=== PATIENT | female | born 1945 | race African-American/Black ===

== ENCOUNTER 2017-08-10 12:35 | Emergency (ER) | payer MEDICARE ==
--- NOTE | 2017-08-10 14:35 | ED ---
Skin Complaint - HPI Summary HPI Summary: 72 female presents to ED with complaints of wounds on lower extremities that she has been dealing with for a while and has been seeing the wound clinic for. Just was seen on Sunday. States she feels they are looking better however they are painful and "leaking a lot". Has been changing the dressings at home. Lives at home by herself. Is able to walk and bear weight. Does have bilateral leg edema that is chronic. No fever/chills. No other complaints. Sees wound clinic again sunday08/14/17. Has been taking her medication and applying her antibiotic "clindamycin cream" as directed. Also has been dressing them but is here today because they are leaking "too much and she has to change the dressings frequently". - History of Current Complaint Chief Complaint: EDExtremityLower Time Seen by Provider: 08/10/17 12:43 Stated Complaint: RT FOOT PAIN Hx Obtained From: Patient Onset/Duration: Started Weeks Ago, Still Present Skin Exposure Onset/Duration: Weeks Ago Timing: Constant Onset Severity: Mild Current Severity: Mild Pain Intensity: 5 Pain Scale Used: 0-10 Numeric Skin Location: Leg - b/l, Foot - b/l Character: Swelling, Redness, Painful Aggravating Symptom(s): Nothing Alleviating Symptom(s): Nothing Associated Signs & Symptoms: Rash - wounds/ulcers - Allergy/Home Medications Allergies/Adverse Reactions: Allergies Allergy/AdvReac Type Severity Reaction Status Date / Time hydrocodone Allergy Unknown Unknown Verified 08/10/17 12:55 Reaction Details PMH/Surg Hx/FS Hx/Imm Hx Endocrine/Hematology History: Denies: Hx Diabetes Cardiovascular History: Reports: Hx Congestive Heart Failure, Hx Hypertension, Other Cardiovascular Problems/Disorders - chf Respiratory History: Reports: Hx Asthma Musculoskeletal History: Reports: Hx Osteoporosis, Other Musculoskeletal History - osteoporosis - Cancer History Hx Chemotherapy: No Hx Radiation Therapy: No - Surgical History Surgery Procedure, Year, and Place: hyster skin graft left leg - Immunization History Immunizations Up to Date: Yes Infectious Disease History: No Infectious Disease History: Reports: Hx of Known/Suspected MRSA - possible? patient is unsure Denies: Traveled Outside the [place] in Last 30 Days - Family History Family History: No FHx of breast CA - Social History Alcohol Use: Rare Substance Use Type: Reports: None Smoking Status (MU): Never Smoked Tobacco Review of Systems Constitutional: Negative Cardiovascular: Negative Respiratory: Negative Positive: Other - wounds bilateral legs, chronic All Other Systems Reviewed And Are Negative: Yes Physical Exam Triage Information Reviewed: Yes Vital Signs On Initial Exam: Initial Vitals Temp Pulse Resp BP Pulse Ox 96.9 F 91 16 165/66 95 08/10/17 12:36 08/10/17 12:36 08/10/17 12:36 08/10/17 12:36 08/10/17 12:36 BP noted, patient has to take her BP meds, improved at d/c Vital Signs Reviewed: Yes Appearance: Positive: Well-Appearing, No Pain Distress, Well-Nourished Skin: Positive: Warm, Skin Color Reflects Adequate Perfusion, Dry, Other - bilateral lower leg and foot wounds, chronic open. no necrosis, drainage is present. no significant erythema suggesting active infection. Eyes: Positive: Conjunctiva Clear Respiratory/Lung Sounds: Positive: Clear to Auscultation, Breath Sounds Present. Negative: Rales, Rhonchi, Wheezes Cardiovascular: Positive: Normal, RRR, Pulses are Symmetrical in both Upper and Lower Extremities - diminshed b/l +1 due to edema, however warm and cap refill < 2 sec, Leg Edema Left - 3+, Leg Edema Right - 3+ pitting. Negative: Murmur, Rub Musculoskeletal: Positive: Normal, Strength/ROM Intact, Pain @ - with movement and walking due to wounds, Edema Left - 3+, Edema Right - 3+ Neurological: Positive: Normal, Sensory/Motor Intact, Alert, Oriented to Person Place, Time Procedures - Laceration/Wound Repair 1-5 Sterile Dressing Applied?: Yes - to wounds on lower extremities, xeroform, telfa , kerlex, coban Diagnostics - Vital Signs Vital Signs Temp Pulse Resp BP Pulse Ox 08/10/17 12:36 96.9 F 91 16 165/66 95 - Laboratory Result Diagrams: 08/10/17 14:27 08/10/17 14:27 Lab Statement: Any lab studies that have been ordered have been reviewed, and results considered in the medical decision making process. Course/Dx - Course Course Of Treatment: labs obtained, wound dressings removed irrigated and ointment applied, new dressings applied. no concern for other workup at this time. is already following up at wound clinic weekly. wound culture sent and pending. normal vitals. already on pain medication prescribed at home along with CHF medication. no further concerns or work up appears necessary at this time. spoke with Dr Ruiz about case who agrees. Follow up woudn clinic. appears to be suffering from excessive drainage due to chronic bl edema and after most recent debridement. social work was consulted due to patient livng along and for help changing dressing and radha medication at home. - Differential Diagnoses - Skin Complaint Differential Diagnoses: Other - ulcer, wounds lower extremities, chronic bilateral edema - Diagnoses Provider Diagnoses: Wound of lower extremity, Venous stasis ulcer Discharge - Discharge Plan Condition: Stable Disposition: HOME Meds/Orders/Equipment: Home Care: Skilled Needs Location: None Selected Patient Education Materials: Chronic Wound Care (ED), Chronic Wounds (ED) Referrals: [facility] [Outside] Marii Swain MD [Primary Care Provider] - Additional Instructions: Please continue to change dressing and apply medication previously prescribed to you. Elevate legs to help with edema and refrain from walking to help with pain. Take prescribed pain medication to help with pain and discomfort. Keep clean and dry. Take daily medication as prescribed as this is very important to refrain from worsening wounds/edema. Follow up with wound clinic on sunday, call sooner if you feel its necessary. any fever, chills, blackened skin or worsening symptoms please seek medical attention promptly.
[2017-08-10 14:39] LABS: ABS Basophils 0 10^3/ul (0-0.2); ABS Eosinophils 0.1 10^3/ul (0-0.6); ABS Lymphocytes 0.5 10^3/ul (1.0-4.8); ABS Monocytes 0.3 10^3/ul (0-0.8); ABS Neutrophils 3.6 10^3/ul (1.5-7.7); ABS Nucleated RBC 0 10^3/ul; Eosinophil % 1.8 % (0-6); Hematocrit 37 % (35-47); Hemoglobin 11.8 g/dl (12.0-16.0); Mean Corpuscular HGB Conc 32 g/dl (31-36); Mean Corpuscular Hemoglobin 28 pg (27-31); Mean Corpuscular Volume 87 fL (80-97); Mean Platelet Volume 8 um3 (7.4-10.4); Nucleated Red Blood Cells % 0; Platelet Count 200 10^3/ul (150-450); Red Blood Count 4.22 10^6/ul (4.0-5.4); Red Cell Distribution Width 15 % (10.5-15); White Blood Count 4.5 10^3/ul (3.5-10.8)
[2017-08-10 14:53] LABS: EGFR Non-African American 67.2 (>60)
[2017-08-10 15:52] VITALS: BP 124/58
--- NOTE | 2017-08-13 14:16 | PN ---
Progress Note - Progress Note Date of Service: 08/10/17 Note: Called patient and 9 AM. Patient returns call at 2:15 PM She states her wound care clinic Dr. Puckett is aware she has MRSA positive This was confirmed while in the ED 3 days ago She was not placed on Bactrim as she has been on 3 courses of Bactrim, most recently stopped 2 days ago She has a follow-up with Dr. Puckett this I have encouraged her to also see our infectious disease physician, Dr. Damian She agrees to this, and will give him a call today I think this is important as she continues to have MRSA positive in her lower extremities and may need to be on a longer course of an antibiotic possibly requiring a PICC line.
== END 2017-08-10 15:51 | disposition home or self-care (01) ==
LOC: ED 12:35
DX: I83.008 Varicose veins of unspecified lower extremity with ulcer other part of lower leg (principal); L97.909 Non-pressure chronic ulcer of unspecified part of unspecified lower leg with unspecified severity; I50.9 Heart failure, unspecified; I10 Essential (primary) hypertension; J45.909 Unspecified asthma, uncomplicated; Z88.5 Allergy status to narcotic agent; M81.0 Age-related osteoporosis without current pathological fracture; A49.02 Methicillin resistant Staphylococcus aureus infection, unspecified site
CPT/HCPCS: 36415; 80053; 83605; 85025; 87070; 87077; 87186; 87205; 87640; 87641; 99282

== ENCOUNTER 2018-08-12 11:28 | Inpatient (IN) | payer MEDICARE ==
[2018-08-12] MEDS ORDERED: Piperacillin/Tazobac ADVAN(*) 3.375 GM in NS 0.9% 100 ML* 100 ML IVPB ONE (12:25)
[2018-08-12] MEDS ORDERED: NS 0.9% 1000 ML** 1,000 ML IV ONE (12:26)
[2018-08-12 13:25] LABS: Albumin 3.8 g/dL (3.2-5.2); Potassium 3.7 mmol/L (3.5-5.0); Total Bilirubin 0.4 mg/dL (0.2-1.0)
[2018-08-12 13:31] LABS: Albumin/Globulin Ratio 1.2 (1-3); BUN/Creatinine Ratio 29.7 (8-20); C Reactive Protein 12.46 mg/L (<8.01); EGFR African American 92.6 (>60); EGFR Non-African American 76.5 (>60); Globulin 3.3 g/dL (2-4); Total Protein 7.1 g/dL (6.4-8.9)
[2018-08-12 13:34] LABS: ABS Basophils 0 10^3/ul (0-0.2); ABS Eosinophils 0.1 10^3/ul (0-0.6); ABS Lymphocytes 0.6 10^3/ul (1.0-4.8); ABS Monocytes 0.4 10^3/ul (0-0.8); ABS Nucleated RBC 0 10^3/ul; Eosinophil % 2.6 %; Hematocrit 35 % (35-47); Hemoglobin 11.7 g/dl (12.0-16.0); Lymphocyte % 19.5 %; Mean Corpuscular HGB Conc 33 g/dl (31-36); Mean Corpuscular Hemoglobin 29 pg (27-31); Mean Corpuscular Volume 88 fL (80-97); Mean Platelet Volume 7.6 fL (7.4-10.4); Nucleated Red Blood Cells % 0.1; Platelet Count 203 10^3/ul (150-450); Red Blood Count 3.99 10^6/ul (4.00-5.40); Red Cell Distribution Width 14 % (10.5-15); White Blood Count 3.1 10^3/ul (3.5-10.8)
--- NOTE | 2018-08-12 16:30 | HP ---
CC: Dr. Swain * HOSPITAL MEDICINE HISTORY AND PHYSICAL: DATE OF ADMISSION: 08/12/18 PRIMARY CARE PHYSICIAN: Dr. Swain. ATTENDING PHYSICIAN: Dr. Jackson Collado * (dictation provided by Adelita Arreguin NP). CHIEF COMPLAINT: Nonhealing foot wound and concern for safety at home. HISTORY OF PRESENT ILLNESS: Ms. Mulligan is a 73-year-old female with a past medical history of peripheral arterial disease, chronic nonhealing lower extremity wounds, and hypertension. Ms. Mulligan is reportedly following with the Wound Care Clinic at least since 2016 with concern for nonhealing bilateral lower extremity wounds. She has a history of peripheral arterial disease. She does not have a history of diabetes. The patient was last seen there earlier this year. She recently had services of [facility], but she felt that she was able to manage her wounds on her own and therefore discontinued that service. The patient is followed by Dr. Swain and by care coordinators from [facility] ([facility]) who have recently been more and more concerned about the patient as she seems to not be following up with appointments and seems to be confused at home. The patient was checked on today and there was concern that she had a nonhealing wound and about her ability to care for herself at home and therefore she was transitioned to the hospital for further evaluation. In the hospital, on brief exam, Ms. Mulligan appears to be alert. She is oriented x3. She is communicating appropriately, although I cannot verify all the details that she is providing me with, specifically around the fact that her daughter is coming to live with her as of Sunday. She does report that she lives alone and she does not herself have any concerns about her safety. She has a foot wound to the top of her right foot that is dry. There is no erythema or drainage. The patient has labs, which show a C-reactive protein of 12.46 only. Her white blood cell count is 3.1, which is consistent with previous intermittent leukocytopenia. PAST MEDICAL HISTORY: 1. Hypertension. 2. Lower extremity edema. 3. Lower extremity wounds. MEDICATIONS: 1. Acetaminophen 500 mg p.o. b.i.d. 2. Cholecalciferol 125 mcg p.o. daily. 3. [place]-3 fatty acids 1000 mg p.o. daily. 4. Carvedilol 12.5 mg p.o. b.i.d. 5. Fluticasone/salmeterol 500/50 one puff inhaled b.i.d. 6. Furosemide 40 mg p.o. daily. 7. Metolazone 2.5 mg p.o. Sunday, Sunday, and Sunday. 8. Oxycodone with acetaminophen 5/325 one tab p.o. q.4 hours p.r.n. 9. Potassium chloride 20 mEq p.o. t.i.d. ALLERGIES: HYDROCODONE. FAMILY HISTORY: The patient reports mother related to cancer and dad's cause of is unknown. SOCIAL HISTORY: No report of alcohol, tobacco, or drug use. The patient lives alone. She states her sister, Khadra, will be the healthcare proxy. REVIEW OF SYSTEMS: A 14-point review of systems was completed with Ms. Mulligan and all those not mentioned above were negative. PHYSICAL EXAMINATION GENERAL: Ms. Mulligan is sitting up in the bed. She is in no acute distress. VITAL SIGNS: Temperature 97.6, pulse rate 80, respiratory rate 16, O2 saturation 97% on room air, blood pressure 111/70. LUNGS: Clear to auscultation bilaterally with no accessory muscle use and good aeration. HEART: S1, S2. No murmur, rub, or gallop and regular. ABDOMEN: Soft, nontender with bowel sounds positive x4. EXTREMITIES: No cyanosis, with mild 2+ edema. NEUROLOGIC: She is alert. She is oriented x3. She moves all extremities equally. There is no facial asymmetry or focal weakness. Extraocular movements are intact. SKIN: The patient has a chronic-appearing ulceration to the top of her right foot involving the second, third, and fourth toes. There is no erythema. There is no drainage. DIAGNOSTIC STUDIES/LAB DATA: WBC 3.1, hemoglobin 11.7, hematocrit 35. Sodium 130, potassium 3.7, chloride 99, serum bicarbonate 23, BUN 22, creatinine 0.74, glucose 89. CRP 12.46. Lactic acid 1.4. The patient did have a lower extremity CT, which is read as follows: "Soft tissue plane edema without identification of a loculated abscess collection within the limits of noncontrast CT. No CT evidence for osteomyelitis. If there is persistent clinical and excess suspicion for osteomyelitis, consider MRI or in the setting if contraindication for MRI, 3-phase bone scan for further assessment. Advanced arthropathy as described." ASSESSMENT AND PLAN: Ms. Mulligan is a 73-year-old female with a past medical history of peripheral arterial disease and chronic lower extremity wounds, who presents today to the hospital with concern for a nonhealing lower extremity wound and concerns about safety at home by her healthcare or medical and her primary care physician. Our plans are for observation in the hospital for the following : 1. Nonhealing foot wound. At this time, it does not appear to be acutely infected. There is no erythema. There is no drainage. I am not planning to provide antibiotics, but I have consulted with the Wound Care Clinic who can give further assessment as well. Again, a CT scan showed no evidence of osteomyelitis. Her CRP is essentially normal. Her WBC is showing a very slight leukocytopenia. She is afebrile. She denies fever at home as well. 2. Lower extremity edema. Continue normal metolazone and furosemide. 3. Hypertension. Continue carvedilol. 4. DVT prophylaxis with heparin subcu. 5. Code status is full code. TIME SPENT: Approximately 60 minutes were spent on the admission of this patient, more than half the time spent with the patient at the bedside reviewing the events leading up to this hospitalization, performing the physical examination, and reviewing my plan of care. ADELITA ARREGUIN NP [id number]/DEBBIE #: [id number] DANYELLE
[2018-08-12] MEDS: FLUTICASONE SALMETEROL INH SCH (19:24)
[2018-08-12] MEDS: Potassium Chlor TAB* 20 MEQ TAB.ER PO SCH (21:27)
[2018-08-12] MEDS: Metolazone TAB* 5 MG PO SCH (21:28)
[2018-08-12] MEDS: Carvedilol TAB* 6.25 MG PO SCH (21:28)
[2018-08-12] MEDS: Heparin VIAL(*) 5000 UNITS/ML VIAL (FIVE THOUSAND) SUBCUT SCH (21:29)
[2018-08-12 22:34] LABS: Erythrocyte Sed Rate 31 mm/Hr (0-30)
[2018-08-12] MEDS ORDERED: Lidocaine 4% TOPICAL* 50 ML TOP.SOLN TOPICAL ONE (23:00)
--- NOTE | 2018-08-13 00:04 | PN ---
Progress Note - Progress Note Date of Service: 08/13/18 Note: Paged wound cx: MRSA - sensitive to doxycycline in the past - will start this.
[2018-08-13] MEDS ORDERED: DOXYcycline CAP(*) 100 MG PO SCH (01:00)
[2018-08-13] MEDS: oxyCODONE/Acetamin 5/325 MG* TAB PO PRN (01:32)
[2018-08-13] MEDS: Heparin VIAL(*) 5000 UNITS/ML VIAL (FIVE THOUSAND) SUBCUT SCH ×3 (05:48→21:24)
--- NOTE | 2018-08-13 06:30 | ED ---
Skin Complaint - HPI Summary HPI Summary: Patient 73-year-old female with history of chronic nonhealing leg wounds, PAD, PVD presenting to the ED by ambulance. Patient is followed by Dr. haro. Dr. haro was able to contact the ED earlier in the afternoon to discuss patient's inability to care for herself at home. Dr. haro states she has been more concerned about the patient's baseline confusion, lack of follow-up to appointments and her worsening wound infections to her bilateral lower extremities to which she does not care for at home and does not follow up to the wound care clinic anymore. She has a visiting nurse services however she has been refusing their care. She denies any fevers, sweats, chills. She denies any recent illness. She states she has been changing her bandages every 2 days. - History of Current Complaint Chief Complaint: EDExtremityLower Time Seen by Provider: 08/12/18 11:34 Stated Complaint: RT FOOT INF Hx Obtained From: Patient Onset/Duration: Still Present Skin Exposure Onset/Duration: Worse Since: - several weeks - no follow up with wound clinic Timing: Constant Onset Severity: Moderate Current Severity: Moderate Pain Intensity: 8 Pain Scale Used: 0-10 Numeric Skin Location: Foot Character: Swelling, Redness Aggravating Symptom(s): Nothing Alleviating Symptom(s): Nothing Associated Signs & Symptoms: Negative - Additional Pertinent History Oxygen Devices Used Prior to Hospitalization: None - Allergy/Home Medications Allergies/Adverse Reactions: Allergies Allergy/AdvReac Type Severity Reaction Status Date / Time hydrocodone Allergy Unknown Unknown Verified 08/10/17 12:55 Reaction Details Home Medications: Home Medications Acetaminophen [Acetaminophen Extra Strength] 500 mg PO BID 08/12/18 [History Confirmed 08/12/18] Carvedilol TAB* [Coreg TAB*] 12.5 mg PO BID 08/12/18 [History Confirmed 08/12/18 ] Cholecalciferol (Vitamin D3) [Vitamin D3] 125 mcg PO DAILY 08/12/18 [History Confirmed 08/12/18] Fluticasone-Salmeterol 500-50* [Advair Diskus 500-50*] 1 puff INH BID 08/12/18 [ History Confirmed 08/12/18] Furosemide TAB* [Lasix TAB*] 40 mg PO DAILY 08/12/18 [History Confirmed 08/12/18 ] Metolazone TAB* [Zaroxolyn TAB*] 2.5 mg PO MOWEFR 08/12/18 [History Confirmed ] [place]-3 Fatty Acids (Nf) [Fish Oil (NF)] 1,000 mg PO DAILY 08/12/18 [History Confirmed 08/12/18] Potassium Chlor TAB* [Klor Con ER TAB*] 20 meq PO TID 08/12/18 [History Confirmed 08/12/18] oxyCODONE/Acetamin 5/325 MG* [Percocet 5/325 TAB*] 1 tab PO Q4H PRN 08/12/18 [ History Confirmed 08/12/18] PMH/Surg Hx/FS Hx/Imm Hx Previously Healthy: Yes Endocrine/Hematology History: Denies: Hx Diabetes Cardiovascular History: Reports: Hx Congestive Heart Failure, Hx Hypertension, Other Cardiovascular Problems/Disorders - chf Respiratory History: Reports: Hx Asthma Musculoskeletal History: Reports: Hx Osteoporosis, Other Musculoskeletal History - osteoporosis Sensory History: Denies: Hx Contacts or Glasses, Hx Hearing Aid Opthamlomology History: Denies: Hx Contacts or Glasses - Cancer History Hx Chemotherapy: No Hx Radiation Therapy: No - Surgical History Surgery Procedure, Year, and Place: hyster skin graft left leg Infectious Disease History: No Infectious Disease History: Reports: Hx of Known/Suspected MRSA - possible? patient is unsure Denies: Traveled Outside the [place] in Last 30 Days - Family History Family History: No FHx of breast CA - Social History Occupation: Unemployed Lives: Alone Alcohol Use: Rare Hx Substance Use: No Substance Use Type: Reports: None Hx Tobacco Use: Yes Smoking Status (MU): Former Smoker Review of Systems Constitutional: Negative Negative: Fever, Chills, Fatigue, Skin Diaphoresis Negative: Palpitations, Chest Pain Genitourinary: Negative Positive: no symptoms reported, see HPI Negative: Arthralgia Positive: Other - chronic lower extremity wounds All Other Systems Reviewed And Are Negative: Yes Physical Exam Triage Information Reviewed: Yes Vital Signs On Initial Exam: Initial Vitals Temp Pulse Resp BP Pulse Ox 97.6 F 73 16 119/62 93 08/12/18 11:35 08/12/18 11:35 08/12/18 11:35 08/12/18 11:35 08/12/18 11:35 Vital Signs Reviewed: Yes Appearance: Positive: Well-Appearing, Ill-Appearing Skin: Positive: Other - chronic lower extremity leg edema and wounds - worse to the R 2nd and 3rd toes Neck: Positive: No Lymphadenopathy Respiratory/Lung Sounds: Positive: Clear to Auscultation, Breath Sounds Present Cardiovascular: Positive: RRR, Pulses are Symmetrical in both Upper and Lower Extremities Musculoskeletal: Positive: Edema Left, Edema Right Neurological: Positive: Speech Normal, Other - patient is pleasantly confused Psychiatric: Positive: Affect/Mood Appropriate AVPU Assessment: Alert Diagnostics - Vital Signs Vital Signs Temp Pulse Resp BP Pulse Ox 08/12/18 15:01 80 98 08/12/18 14:11 80 111/70 97 08/12/18 14:01 79 97 08/12/18 13:41 73 129/68 96 08/12/18 13:38 80 96 08/12/18 13:11 128/66 08/12/18 12:42 115/81 08/12/18 12:11 69 108/56 98 08/12/18 12:10 70 97 08/12/18 11:35 97.6 F 73 16 119/62 93 - Laboratory Lab Results: Lab Results 08/12/18 08/12/18 08/12/18 Range/Units 12:49 13:23 13:23 WBC 3.1 L (3.5-10.8) 10^3/ul RBC 3.99 L (4.00-5.40) 10^6/ul Hgb 11.7 L (12.0-16.0) g/dl Hct 35 (35-47) % MCV 88 (80-97) fL MCH 29 (27-31) pg MCHC 33 (31-36) g/dl RDW 14 (10.5-15) % Plt Count 203 (150-450) 10^3/ul MPV 7.6 (7.4-10.4) fL Neut % (Auto) 63.3 % Lymph % (Auto) 19.5 % Brooks % (Auto) 13.4 % Eos % (Auto) 2.6 % Baso % (Auto) 1.2 % Absolute Neuts (auto) 2.0 (1.5-7.7) 10^3/ul Absolute Lymphs (auto) 0.6 L (1.0-4.8) 10^3/ul Absolute Monos (auto) 0.4 (0-0.8) 10^3/ul Absolute Eos (auto) 0.1 (0-0.6) 10^3/ul Absolute Basos (auto) 0 (0-0.2) 10^3/ul Absolute Nucleated RBC 0 10^3/ul Nucleated RBC % 0.1 ESR 31 H (0-30) mm/Hr Sodium 130 L (135-145) mmol/L Potassium 3.7 (3.5-5.0) mmol/L Chloride 99 L (101-111) mmol/L Carbon Dioxide 23 (22-32) mmol/L Anion Gap 8 (2-11) mmol/L BUN 22 (6-24) mg/dL Creatinine 0.74 (0.51-0.95) mg/dL Est GFR ( Amer) 92.6 (>60) Est GFR (Non-Af Amer) 76.5 (>60) BUN/Creatinine Ratio 29.7 H (8-20) Glucose 89 (70-100) mg/dL Lactic Acid 1.4 (0.5-2.0) mmol/L Calcium 10.0 (8.6-10.3) mg/dL Total Bilirubin 0.40 (0.2-1.0) mg/dL AST 14 (13-39) U/L ALT 7 (7-52) U/L Alkaline Phosphatase 84 (34-104) U/L C-Reactive Protein 12.46 H (<8.01) mg/L Total Protein 7.1 (6.4-8.9) g/dL Albumin 3.8 (3.2-5.2) g/dL Globulin 3.3 (2-4) g/dL Albumin/Globulin Ratio 1.2 (1-3) Result Diagrams: 08/12/18 13:23 08/12/18 12:49 Lab Statement: Any lab studies that have been ordered have been reviewed, and results considered in the medical decision making process. Course/Dx - Course Course Of Treatment: On arrival into the ED, patient is pleasantly confused at baseline. She states she has been changing her bandages every 2 days. And asked why she does not continue follow-up care at the wound clinic, she states she is able to manage at home. She also states she would not like to return to Dr. Dobbs, who was previously treating her chronic wounds. Patient does report she lives alone and denies any concerns. Dr. haro called into ED and stated she was concerned over her welfare and safety for returning home due to her worsening confusion and lack of close follow-up with her worsening lower extremity edema and chronic wounds. On physical examination, there is a chronic -appearing ulcerations to the bilateral lower extremities and feet, worse to the right second and third toe which is weeping with erythema and serous fluid. Discussed case with Dr. Collado, hospitalist who agrees to admit for further evaluation of her chronic wounds as well as her mental capacity for her return home. She is started on Zosyn in the ED to cover for pseudomonas, wound cultures will be obtained and sent and will tailor abx therapy accordingly. - Diagnoses Provider Diagnoses: Chronic wound of extremity Discharge - Sign-Out/Discharge Documenting (check all that apply): Patient Departure - Discharge Plan Condition: Fair Disposition: ADMITTED TO [facility] - Billing Disposition and Condition Condition: FAIR Disposition: Admitted to [facility]
--- NOTE | 2018-08-13 07:39 | PN ---
Subjective Date of Service: 08/13/18 Interval History: Chronic pain R hip, doesn't use analgesics, can walk short distances with a walker. No other c/o. Objective Active Medications: Acetaminophen (Tylenol Tab*) 650 mg PO Q6H PRN PRN Reason: PAIN Carvedilol (Coreg Tab*) 12.5 mg PO BID [facility] Last Admin: 08/12/18 21:28 Dose: 12.5 mg Furosemide (Lasix Tab*) 20 mg PO DAILY [facility] Heparin Sodium (Porcine) (Heparin Vial(*)) 5,000 units SUBCUT Q8HR [facility] Last Admin: 08/13/18 05:48 Dose: 5,000 units Metolazone (Zaroxolyn Tab*) 2.5 mg PO MOWEFR [facility] Last Admin: 08/12/18 21:28 Dose: 2.5 mg Oxycodone/Acetaminophen (Percocet 5/325 Tab*) 1 tab PO Q4H PRN PRN Reason: PAIN Last Admin: 08/13/18 01:32 Dose: 1 tab Potassium Chloride (Klor Con Er Tab*) 20 meq PO TID [facility] Last Admin: 08/12/18 21:27 Dose: 20 meq Fluticasone/Salmeterol (Advair Diskus 500-50*) 1 puff INH BID [facility] Last Admin: 08/12/18 19:24 Dose: Not Given Vital Signs - 8 hr 08/13/18 08/13/18 08/13/18 01:32 02:55 03:01 Temperature 97.6 F Pulse Rate 72 Respiratory 20 18 Rate Blood Pressure 94/43 (mmHg) O2 Sat by Pulse 96 Oximetry 08/13/18 05:35 Temperature Pulse Rate Respiratory 18 Rate Blood Pressure (mmHg) O2 Sat by Pulse Oximetry Oxygen Devices in Use Now: None Appearance: Alert, partly up in bed. In good spirits, looks comfortable. Extremities: No Edema, No Clubbing, Cyanosis Skin: No Nodules or Sclerosis, - - R foot chronically red per patient. Macerated areas dorsum of several toes R foot. Neurological: Alert and Oriented x 3, NL Sensation Result Diagrams: 08/12/18 13:23 08/12/18 12:49 Additional Lab and Data: Lab Results 08/12/18 08/12/18 08/12/18 Range/Units 12:49 13:23 13:23 WBC 3.1 L (3.5-10.8) 10^3/ul RBC 3.99 L (4.00-5.40) 10^6/ul Hgb 11.7 L (12.0-16.0) g/dl Hct 35 (35-47) % MCV 88 (80-97) fL MCH 29 (27-31) pg MCHC 33 (31-36) g/dl RDW 14 (10.5-15) % Plt Count 203 (150-450) 10^3/ul MPV 7.6 (7.4-10.4) fL Neut % (Auto) 63.3 % Lymph % (Auto) 19.5 % [place] % (Auto) 13.4 % Eos % (Auto) 2.6 % Baso % (Auto) 1.2 % Absolute Neuts (auto) 2.0 (1.5-7.7) 10^3/ul Absolute Lymphs (auto) 0.6 L (1.0-4.8) 10^3/ul Absolute Monos (auto) 0.4 (0-0.8) 10^3/ul Absolute Eos (auto) 0.1 (0-0.6) 10^3/ul Absolute Basos (auto) 0 (0-0.2) 10^3/ul Absolute Nucleated RBC 0 10^3/ul Nucleated RBC % 0.1 ESR 31 H (0-30) mm/Hr Sodium 130 L (135-145) mmol/L Potassium 3.7 (3.5-5.0) mmol/L Chloride 99 L (101-111) mmol/L Carbon Dioxide 23 (22-32) mmol/L Anion Gap 8 (2-11) mmol/L BUN 22 (6-24) mg/dL Creatinine 0.74 (0.51-0.95) mg/dL Est GFR ( Amer) 92.6 (>60) Est GFR (Non-Af Amer) 76.5 (>60) BUN/Creatinine Ratio 29.7 H (8-20) Glucose 89 (70-100) mg/dL Lactic Acid 1.4 (0.5-2.0) mmol/L Calcium 10.0 (8.6-10.3) mg/dL Total Bilirubin 0.40 (0.2-1.0) mg/dL AST 14 (13-39) U/L ALT 7 (7-52) U/L Alkaline Phosphatase 84 (34-104) U/L C-Reactive Protein 12.46 H (<8.01) mg/L Total Protein 7.1 (6.4-8.9) g/dL Albumin 3.8 (3.2-5.2) g/dL Globulin 3.3 (2-4) g/dL Albumin/Globulin Ratio 1.2 (1-3) Microbiology and Other Data: Microbiology 08/12/18 20:25 Skin and Soft Tissue MRSA/MSSA (PCR - Final Foot Right Mrsa Positive S.aureus Positive Gram Stain - Preliminary 08/12/18 20:25 Nasal Screen MRSA (PCR) - Final Nasal Mrsa Detected Assess/Plan/Problems-Billing Assessment: - Patient Problems (1) Foot ulcer, right Current Visit: Yes Status: Acute Code(s): L97.519 - NON-PRS CHRONIC ULCER OTH PRT RIGHT FOOT W UNSP SEVERITY SNOMED Code(s): 46146478 Comment: Surface S&S pos for MRSA consistently for almost 2 years, no indication for an antibiotic. Wound consult pending. (2) HTN (hypertension) Current Visit: Yes Status: Acute Code(s): I10 - ESSENTIAL (PRIMARY) HYPERTENSION SNOMED Code(s): 85948384 Comment: Continue carvedilol. Reduce furosemide to 20 mg daily due to high BUN/creat ratio and lack of edema. (3) Cognitive change Current Visit: Yes Status: Acute Code(s): R41.89 - OTH SYMPTOMS AND SIGNS W COGNITIVE FUNCTIONS AND AWARENESS SNOMED Code(s): 446711210 Comment: Psychiatric eval shows that the patient lacks capacity to make medical decisions such as refusing to be placed.
[2018-08-13] MEDS ORDERED: Furosemide TAB* 40 MG PO SCH (09:00)
[2018-08-13] MEDS: FLUTICASONE SALMETEROL INH SCH ×2 (09:22→20:35)
[2018-08-13] MEDS: Carvedilol TAB* 6.25 MG PO SCH ×2 (10:58→21:24)
[2018-08-13] MEDS: Furosemide TAB* 40 MG PO SCH (11:00)
[2018-08-13] MEDS: Potassium Chlor TAB* 20 MEQ TAB.ER PO SCH ×3 (11:01→21:24)
--- NOTE | 2018-08-13 13:34 | CONSULT ---
Consult Consult: Psychiatry consulted to evaluate for capacity for medical decision making. S: Psychiatry is asked to see this pleasant, elderly, domiciled black female with a history of peripheral arterial disease and associated chronic nonhealing wounds to assess whether she has capacity to refuse SNF placement. According to EMR, patient has been a client of Wound Care clinic since 2016 with poor progress. Recently, she discontinued VNS services due to motivation to care for her self. However, during that time she has not followed through with medical appointments nor has she tended to her own wound care. She is consistent in her report to many providers that her daughter is coming this week from [place] to live with and care for her. According to attending physician, there is no such person. According to Shonna Castillo RN medicaid specialist: "Pt well known to the Wound Center; has been followed on and off for the past 5 years for venous stasis ulcers to lower legs and most recently ulceration to dorsum of R foot. Pt with increasing difficulty remembering appointments, paying bills and caring for herself. Frequent phone calls to PCP, APS and social work with these concerns, however she neglected to follow through with any of the suggestions or paperwork required. Unable to order supplies since she had an unpaid balance. She eventually terminated her VNS stating that she no longer needed their assistance. Discharged from Wound Center on 06/19/18." Upon presentation, patient is lying in bed with HOB elevated and she is watching the television. She is pleasant and cooperative and answers questions fully. She reports living alone and being able to care for her wounds , cook for herself and ambulate to local grocery store. She states she moved to [place] from [place] in 2009 and has been planning to return "but it hasn't happened yet." She states her daughter is coming this sunday from . She does not have understanding in regards to reason for hospitalization. She denies need for assisted living or prison. O: aging black female, pleasant, cooperative, euthymic with bright affect; she denies depressive sx, SI or HI. Cognitively intact, She is cooperative with MMSE and scores 26/30. She missed points for year, recent recall and serial 7s. She was able to spell "WORLD" backwards. Her insight and judgment are impaired in regards to her ability to care for herself and perform necessary wound care. A/P: Capacity: the patient clearly lacks capacity to make informed medical decisions. Psychiatry feels SNF placement is warranted. I have reviewed the above with attending physician, Dr Causey and my supervising psychiatrist, Dr Lewis.
[2018-08-14] MEDS: oxyCODONE/Acetamin 5/325 MG* TAB PO PRN (06:24)
[2018-08-14] MEDS: Heparin VIAL(*) 5000 UNITS/ML VIAL (FIVE THOUSAND) SUBCUT SCH ×3 (06:25→20:01)
[2018-08-14] MEDS: FLUTICASONE SALMETEROL INH SCH ×2 (07:12→19:51)
[2018-08-14] MEDS: Furosemide TAB* 40 MG PO SCH (09:30)
[2018-08-14] MEDS: Carvedilol TAB* 6.25 MG PO SCH ×2 (09:30→20:01)
[2018-08-14] MEDS: Potassium Chlor TAB* 20 MEQ TAB.ER PO SCH ×3 (09:31→20:01)
--- NOTE | 2018-08-14 14:40 | CONSULT ---
Subjective Date of Service: 08/14/18 Interval History: Ms. Mulligan is a 73 yo female with PMH significant for HTN, PAD, and chronic non healing wounds of the LEs who presented to the emergency room with complaints of a non healing wound and concern for her ability to care for herself. Ms. Mulligan was previously following with the wound clinic but was discharged from there in June 2018. She states that she has not been using a dressing on the right foot and feels like it is improving on its own. Patient seen and examined at bedside. Family History: Unchanged from Admission Social History: Unchanged from Admission Past Medical History: Unchanged from Admission Review of Systems - Measurements Intake and Output: Intake and Output Last 24 Hours 08/12/18 08/13/18 08/14/18 08/15/18 06:59 06:59 06:59 06:59 Intake Total 1100 330 240 Balance 1100 330 240 Weight 204 lb Intake: IV Fluids 1100 Oral 0 330 240 Other: Estimated Void Medium Large # Bowel Movements 1 Estimated Stool Amount Medium # Voids 2 1 - Review of Systems Constitutional Symptoms: Negative: Fever, Other - Chills Dermatology: Positive: Other - Non healing wound of the right foot Objective Active Medications: Acetaminophen (Tylenol Tab*) 650 mg PO Q6H PRN Reason: PAIN Carvedilol (Coreg Tab*) 12.5 mg PO BID [facility] Furosemide (Lasix Tab*) 20 mg PO DAILY [facility] Heparin Sodium (Porcine) (Heparin Vial(*)) 5,000 units SUBCUT Q8HR [facility] Metolazone (Zaroxolyn Tab*) 2.5 mg PO MOWEFR [facility] Oxycodone/Acetaminophen (Percocet 5/325 Tab*) 1 tab PO Q4H PRN Reason: PAIN Potassium Chloride (Klor Con Er Tab*) 20 meq PO TID [facility] Fluticasone/Salmeterol (Advair Diskus 500-50*) 1 puff INH BID [facility] Vital Signs - 8 hr 08/14/18 08/14/18 08/14/18 09:23 09:25 09:32 Temperature 97.3 F Pulse Rate 61 Respiratory 18 18 Rate Blood Pressure 103/52 (mmHg) O2 Sat by Pulse 99 Oximetry 08/14/18 08/14/18 11:19 12:24 Temperature 97.4 F Pulse Rate 62 Respiratory 16 18 Rate Blood Pressure 81/44 (mmHg) O2 Sat by Pulse 98 Oximetry Oxygen Devices in Use Now: None Appearance: NAD, sitting up in a chair Ears/Nose/Mouth/Throat: Mucous Membranes Moist Skin: - - See skin note below Neurological: Alert and Oriented x 3 Result Diagrams: 08/17/18 07:59 08/17/18 07:59 Microbiology and Other Data: Microbiology 08/12/18 20:25 Skin and Soft Tissue MRSA/MSSA (PCR - Final Foot Right Mrsa Positive S.aureus Positive Gram Stain - Preliminary 08/12/18 20:25 Nasal Screen MRSA (PCR) - Final Nasal Mrsa Detected Skin Deviation Note - Skin Deviation Findings Right foot - Dorsal foot with an ulcer. The surrounding skin appears to be macerated (the area was previously dry, but the foot was soaked today prior to examination). The open area below the 2nd and 3rd toes measures 3 cm x 3 cm x 0.1 cm. There is also dry flaky skin to bilateral LEs. There is some crusting to the lateral 1st toe, dorsal 2nd toe and 3rd dorsal toe. Assessment/Plan: Ms. Mulligan is a 73 yo female with PMH significant for HTN, PAD, and chronic non healing wounds who previously followed with the wound clinic. She presented to the hospital with concern for non healing right LE wound and inability to care for herself at home. 1. Chronic right foot wound, venous stasis ulcer. Has a history of venous stasis ulcers to her LEs. Mr. Mulligan was previously following with the wound clinic for her non healing wound, but was discharged from the [facility] in June 2018 (she has been following with the wound clinic off and on for ~ 5 years for venous stasis ulcers). October 2017 ABIs - Right: The posterior tibial ankle brachial index is 0.82. The dorsalis pedis ankle brachial index is 0.89. Left: The posterior tibial ankle brachial index is 0.94. The dorsalis pedis ankle brachial index is 0.92. The digital brachial index is 0.67. Right LE CT on admission showed soft tissue edema, no abscess, and no evidence of osteomyelitis. Pre-albumin in 04/2018 was 23. She has never had a HgA1C but historically glucoses have been 70-120's. She is afebrile, no leukocytosis, and no signs of infection at this time, no need for antibiotics. No drainage noted ( Per NSG staff there has been some drainage), no odor. Could consider rechecking pre-albumin to evaluate nutritional status. Could consider an MRI to further eval for osteomyelitis, but currently low suspicion for osteomyelitis. No dressing required at this time. Can use lotion on surrounding skin and bilateral LEs to help with the dry flaky skin. 2. Peripheral Arterial Disease. 3. Diet. Heart Healthy diet. 4. Code Status. Full Code. 5. Disposition. Disposition per primary medicine team. TIME SPENT: Time for this wound consultation was 25 minutes, and 15 minutes was spent with the patient discussing past medical history; assessing, measuring, and photographing the wound. Wound Problem/Plan Is Patient a Wound Clinic Patient: No - Previously, Discharged in 06/2018 Attending: Miryam Dobbs
[2018-08-14] MEDS: Metolazone TAB* 5 MG PO SCH ×2 (15:33→15:36)
--- NOTE | 2018-08-14 15:47 | PN ---
Subjective Date of Service: 08/14/18 Interval History: No c/o, seems content. Family History: Unchanged from Admission Social History: Unchanged from Admission Past Medical History: Unchanged from Admission Objective Active Medications: Acetaminophen (Tylenol Tab*) 650 mg PO Q6H PRN PRN Reason: PAIN Carvedilol (Coreg Tab*) 6.25 mg PO BID [facility] Furosemide (Lasix Tab*) 20 mg PO DAILY [facility] Last Admin: 08/14/18 09:30 Dose: 20 mg Heparin Sodium (Porcine) (Heparin Vial(*)) 5,000 units SUBCUT Q8HR [facility] Last Admin: 08/14/18 15:32 Dose: 5,000 units Metolazone (Zaroxolyn Tab*) 2.5 mg PO MoWeFr@1600 [facility] Last Admin: 08/14/18 15:36 Dose: Not Given Oxycodone/Acetaminophen (Percocet 5/325 Tab*) 1 tab PO Q4H PRN PRN Reason: PAIN Last Admin: 08/14/18 06:24 Dose: 1 tab Potassium Chloride (Klor Con Er Tab*) 20 meq PO TID [facility] Last Admin: 08/14/18 15:32 Dose: 20 meq Fluticasone/Salmeterol (Advair Diskus 500-50*) 1 puff INH BID [facility] Last Admin: 08/14/18 07:12 Dose: Not Given Vital Signs - 8 hr 08/14/18 08/14/18 08/14/18 09:23 09:25 09:32 Temperature 97.3 F Pulse Rate 61 Respiratory 18 18 Rate Blood Pressure 103/52 (mmHg) O2 Sat by Pulse 99 Oximetry 08/14/18 08/14/18 08/14/18 11:19 12:24 15:14 Temperature 97.4 F 97.7 F Pulse Rate 62 58 Respiratory 16 18 20 Rate Blood Pressure 81/44 105/57 (mmHg) O2 Sat by Pulse 98 Oximetry Oxygen Devices in Use Now: None Appearance: Alert, in a chair. In good spirits. Looks comfortable. Eyes: No Scleral Icterus Extremities: No Edema, No Clubbing, Cyanosis Skin: No Nodules or Sclerosis, - - Open areas R toes look a little instructional design manager today, are now exposd to air. Neurological: NL Sensation - Confabulates. Poor memory. No tremor. Pleasant and cooperative. No tremor. Result Diagrams: 08/12/18 13:23 08/12/18 12:49 Additional Lab and Data: Lab Results 08/12/18 08/12/18 08/12/18 Range/Units 12:49 13:23 13:23 WBC 3.1 L (3.5-10.8) 10^3/ul RBC 3.99 L (4.00-5.40) 10^6/ul Hgb 11.7 L (12.0-16.0) g/dl Hct 35 (35-47) % MCV 88 (80-97) fL MCH 29 (27-31) pg MCHC 33 (31-36) g/dl RDW 14 (10.5-15) % Plt Count 203 (150-450) 10^3/ul MPV 7.6 (7.4-10.4) fL Neut % (Auto) 63.3 % Lymph % (Auto) 19.5 % [place] % (Auto) 13.4 % Eos % (Auto) 2.6 % Baso % (Auto) 1.2 % Absolute Neuts (auto) 2.0 (1.5-7.7) 10^3/ul Absolute Lymphs (auto) 0.6 L (1.0-4.8) 10^3/ul Absolute Monos (auto) 0.4 (0-0.8) 10^3/ul Absolute Eos (auto) 0.1 (0-0.6) 10^3/ul Absolute Basos (auto) 0 (0-0.2) 10^3/ul Absolute Nucleated RBC 0 10^3/ul Nucleated RBC % 0.1 ESR 31 H (0-30) mm/Hr Sodium 130 L (135-145) mmol/L Potassium 3.7 (3.5-5.0) mmol/L Chloride 99 L (101-111) mmol/L Carbon Dioxide 23 (22-32) mmol/L Anion Gap 8 (2-11) mmol/L BUN 22 (6-24) mg/dL Creatinine 0.74 (0.51-0.95) mg/dL Est GFR ( Amer) 92.6 (>60) Est GFR (Non-Af Amer) 76.5 (>60) BUN/Creatinine Ratio 29.7 H (8-20) Glucose 89 (70-100) mg/dL Lactic Acid 1.4 (0.5-2.0) mmol/L Calcium 10.0 (8.6-10.3) mg/dL Total Bilirubin 0.40 (0.2-1.0) mg/dL AST 14 (13-39) U/L ALT 7 (7-52) U/L Alkaline Phosphatase 84 (34-104) U/L C-Reactive Protein 12.46 H (<8.01) mg/L Total Protein 7.1 (6.4-8.9) g/dL Albumin 3.8 (3.2-5.2) g/dL Globulin 3.3 (2-4) g/dL Albumin/Globulin Ratio 1.2 (1-3) Microbiology and Other Data: Microbiology 08/12/18 20:25 Skin and Soft Tissue MRSA/MSSA (PCR - Final Foot Right Mrsa Positive S.aureus Positive Gram Stain - Preliminary 08/12/18 20:25 Nasal Screen MRSA (PCR) - Final Nasal Mrsa Detected Assess/Plan/Problems-Billing Assessment: - Patient Problems (1) Foot ulcer, right Current Visit: Yes Status: Acute Code(s): L97.519 - NON-PRS CHRONIC ULCER OTH PRT RIGHT FOOT W UNSP SEVERITY SNOMED Code(s): 30452521 Comment: Surface S&S pos for MRSA consistently for almost 2 years, no indication for an antibiotic. Wound consult pending. (2) HTN (hypertension) Current Visit: Yes Status: Acute Code(s): I10 - ESSENTIAL (PRIMARY) HYPERTENSION SNOMED Code(s): 17480369 Comment: Reduce carvedilol to 6.25 mg bid start PM 3/6. Continue furosemide 20 mg daily. (3) Cognitive change Current Visit: Yes Status: Acute Code(s): R41.89 - OTH SYMPTOMS AND SIGNS W COGNITIVE FUNCTIONS AND AWARENESS SNOMED Code(s): 347872040 Comment: Psychiatric eval shows that the patient lacks capacity to make medical decisions such as refusing to be placed. (4) Hyponatremia Current Visit: Yes Status: Acute Code(s): E87.1 - HYPO-OSMOLALITY AND HYPONATREMIA SNOMED Code(s): 63068999 Comment: Repeat BMP 08/15. Her oral intake is low.
[2018-08-15] MEDS: Heparin VIAL(*) 5000 UNITS/ML VIAL (FIVE THOUSAND) SUBCUT SCH ×2 (05:27→18:19)
[2018-08-15 07:18] LABS: BUN/Creatinine Ratio 33.8 (8-20); EGFR African American 107.5 (>60); EGFR Non-African American 88.9 (>60); Potassium 4.1 mmol/L (3.5-5.0)
[2018-08-15] MEDS: FLUTICASONE SALMETEROL INH SCH ×2 (08:09→21:36)
[2018-08-15] MEDS: Carvedilol TAB* 6.25 MG PO SCH ×2 (10:05→21:48)
[2018-08-15] MEDS: Acetaminophen TAB* 325 MG PO PRN (10:05)
[2018-08-15] MEDS: Potassium Chlor TAB* 20 MEQ TAB.ER PO SCH ×3 (10:07→21:48)
[2018-08-15] MEDS: Furosemide TAB* 40 MG PO SCH (10:08)
--- NOTE | 2018-08-15 11:22 | PN ---
Subjective Date of Service: 08/15/18 Interval History: Pt seen and examined. Meds and labs reviewed. CC: N/A ROS: Denied GAMBLE/dizziness, F/C, N/V, CP, SOB, increased cough, sputum production , abd pain, diarrhea, constipation, dysuria, myalgias, arthralgias, throat pain , and new skin lesions. The rest of the 14 point ROS are unremarkable. PHYSICAL EXAM: GEN APPEARANCE: Awake, not in acute distress HEENT: NC/AT, PERRLA, moist oral mucosa, (-) throat erythema NECK: Soft, supple, (-) cervical LAD, (-)JVD HEART: S1S2 WNL, RRR, No MRG CHEST: CTA, BL, GAE, No W/R/R ABD: Soft, ND/NT, NABS 4x Q EXT: No C/C/R. dorsal foot wound; appears clean but weepy SKIN: Warm to touch PSYCH: No active psychosis, hallucinations, depression, SI/HI Family History: Unchanged from Admission Social History: Unchanged from Admission Past Medical History: Unchanged from Admission Objective Active Medications: Acetaminophen (Tylenol Tab*) 650 mg PO Q6H PRN PRN Reason: PAIN Last Admin: 08/15/18 10:05 Dose: 650 mg Carvedilol (Coreg Tab*) 6.25 mg PO BID [facility] Last Admin: 08/15/18 10:05 Dose: 6.25 mg Furosemide (Lasix Tab*) 20 mg PO DAILY [facility] Last Admin: 08/15/18 10:08 Dose: 20 mg Heparin Sodium (Porcine) (Heparin Vial(*)) 5,000 units SUBCUT Q12H [facility] Metolazone (Zaroxolyn Tab*) 2.5 mg PO MoWeFr@1600 [facility] Last Admin: 08/14/18 15:36 Dose: Not Given Oxycodone/Acetaminophen (Percocet 5/325 Tab*) 1 tab PO Q4H PRN PRN Reason: PAIN Last Admin: 08/14/18 06:24 Dose: 1 tab Potassium Chloride (Klor Con Er Tab*) 20 meq PO TID [facility] Last Admin: 08/15/18 10:07 Dose: 20 meq Fluticasone/Salmeterol (Advair Diskus 500-50*) 1 puff INH BID [facility] Last Admin: 08/15/18 08:09 Dose: Not Given Vital Signs - 8 hr 08/15/18 08/15/18 08/15/18 04:04 07:48 08:00 Temperature 97.6 F 97.6 F Pulse Rate 77 70 Respiratory 18 20 20 Rate Blood Pressure 101/56 107/58 (mmHg) O2 Sat by Pulse 100 100 Oximetry Oxygen Devices in Use Now: None Result Diagrams: 08/12/18 13:23 08/15/18 06:36 Additional Lab and Data: Lab Results 08/12/18 08/12/18 08/12/18 Range/Units 12:49 13:23 13:23 WBC 3.1 L (3.5-10.8) 10^3/ul RBC 3.99 L (4.00-5.40) 10^6/ul Hgb 11.7 L (12.0-16.0) g/dl Hct 35 (35-47) % MCV 88 (80-97) fL MCH 29 (27-31) pg MCHC 33 (31-36) g/dl RDW 14 (10.5-15) % Plt Count 203 (150-450) 10^3/ul MPV 7.6 (7.4-10.4) fL Neut % (Auto) 63.3 % Lymph % (Auto) 19.5 % [place] % (Auto) 13.4 % Eos % (Auto) 2.6 % Baso % (Auto) 1.2 % Absolute Neuts (auto) 2.0 (1.5-7.7) 10^3/ul Absolute Lymphs (auto) 0.6 L (1.0-4.8) 10^3/ul Absolute Monos (auto) 0.4 (0-0.8) 10^3/ul Absolute Eos (auto) 0.1 (0-0.6) 10^3/ul Absolute Basos (auto) 0 (0-0.2) 10^3/ul Absolute Nucleated RBC 0 10^3/ul Nucleated RBC % 0.1 ESR 31 H (0-30) mm/Hr Sodium 130 L (135-145) mmol/L Potassium 3.7 (3.5-5.0) mmol/L Chloride 99 L (101-111) mmol/L Carbon Dioxide 23 (22-32) mmol/L Anion Gap 8 (2-11) mmol/L BUN 22 (6-24) mg/dL Creatinine 0.74 (0.51-0.95) mg/dL Est GFR ( Amer) 92.6 (>60) Est GFR (Non-Af Amer) 76.5 (>60) BUN/Creatinine Ratio 29.7 H (8-20) Glucose 89 (70-100) mg/dL Lactic Acid 1.4 (0.5-2.0) mmol/L Calcium 10.0 (8.6-10.3) mg/dL Total Bilirubin 0.40 (0.2-1.0) mg/dL AST 14 (13-39) U/L ALT 7 (7-52) U/L Alkaline Phosphatase 84 (34-104) U/L C-Reactive Protein 12.46 H (<8.01) mg/L Total Protein 7.1 (6.4-8.9) g/dL Albumin 3.8 (3.2-5.2) g/dL Globulin 3.3 (2-4) g/dL Albumin/Globulin Ratio 1.2 (1-3) Microbiology and Other Data: Microbiology 08/12/18 20:25 Skin and Soft Tissue MRSA/MSSA (PCR - Final Foot Right Mrsa Positive S.aureus Positive Gram Stain - Preliminary 08/12/18 20:25 Nasal Screen MRSA (PCR) - Final Nasal Mrsa Detected Assess/Plan/Problems-Billing Assessment: - Patient Problems (1) Foot ulcer, right Current Visit: Yes Status: Acute Code(s): L97.519 - NON-PRS CHRONIC ULCER OTH PRT RIGHT FOOT W UNSP SEVERITY SNOMED Code(s): 49736540 Comment: -Surface S&S pos for MRSA consistently for almost 2 years, no indication for an antibiotic. -Will await subsequent F/U assessment by wound team -Repeat CBC and CRP in AM -CT scan does not show evidence for osteomyelitis and thought to be non-healing due to forgetfulness and pts failure to F/U with appointments -Consider MRI if clinical course changes/worsens; currently no leukocytosis nor fever (2) HTN (hypertension) Current Visit: Yes Status: Acute Code(s): I10 - ESSENTIAL (PRIMARY) HYPERTENSION SNOMED Code(s): 96854018 Comment: -Continue carvedilol to 6.25 mg bid start PM 3/6 and continue furosemide 20 mg daily. (3) Cognitive change Current Visit: Yes Status: Acute Code(s): R41.89 - OTH SYMPTOMS AND SIGNS W COGNITIVE FUNCTIONS AND AWARENESS SNOMED Code(s): 364239433 Comment: Psychiatric eval shows that the patient lacks capacity to make medical decisions such as refusing to be placed. (4) Hyponatremia Current Visit: Yes Status: Acute Code(s): E87.1 - HYPO-OSMOLALITY AND HYPONATREMIA SNOMED Code(s): 39471515 Comment: -Resolved (5) DVT prophylaxis Current Visit: Yes Status: Acute Code(s): BXC2461 - SNOMED Code(s): 601937131 Comment: -Changed Heparin to q12H due to advanced age Status and Disposition: -For PT eval -As above
[2018-08-16] MEDS: Heparin VIAL(*) 5000 UNITS/ML VIAL (FIVE THOUSAND) SUBCUT SCH ×2 (05:59→17:29)
[2018-08-16] MEDS: FLUTICASONE SALMETEROL INH SCH ×2 (07:07→19:03)
[2018-08-16 07:14] LABS: Albumin 3.7 g/dL (3.2-5.2); Albumin/Globulin Ratio 1.3 (1-3); CRP High Sensitivity 13.3 mg/L (<2.00); Calcium 10.1 mg/dL (8.6-10.3); EGFR African American 98.7 (>60); EGFR Non-African American 81.6 (>60); Globulin 2.9 g/dL (2-4); Magnesium 1.6 mg/dL (1.9-2.7); Phosphorus 3.2 mg/dL (2.5-5.0); Potassium 4.1 mmol/L (3.5-5.0); Total Bilirubin 0.4 mg/dL (0.2-1.0); Total Protein 6.6 g/dL (6.4-8.9)
[2018-08-16] MEDS: Carvedilol TAB* 6.25 MG PO SCH ×2 (08:11→21:24)
[2018-08-16] MEDS: Furosemide TAB* 40 MG PO SCH (08:11)
[2018-08-16] MEDS: Potassium Chlor TAB* 20 MEQ TAB.ER PO SCH ×3 (08:11→21:25)
[2018-08-16] MEDS ORDERED: Magnesium Sulf 4 GM/100 ML IV* 4,000 MG/100 ML BAG IVPB ONE (09:50)
--- NOTE | 2018-08-16 16:05 | PN ---
Subjective Date of Service: 08/16/18 Interval History: Pt seen and examined. Meds and labs reviewed. CC: N/A ROS: Denied GAMBLE/dizziness, F/C, N/V, CP, SOB, increased cough, sputum production , abd pain, diarrhea, constipation, dysuria, myalgias, arthralgias, throat pain , and new skin lesions. The rest of the 14 point ROS are unremarkable. PHYSICAL EXAM: ASSESSMENT AND PLAN: GEN APPEARANCE: Awake, not in acute distress HEENT: NC/AT, PERRLA, moist oral mucosa, (-) throat erythema NECK: Soft, supple, (-) cervical LAD, (-)JVD HEART: S1S2 WNL, RRR, No MRG CHEST: CTA, BL, GAE, No W/R/R ABD: Soft, ND/NT, NABS 4x Q EXT: No C/C/R. dorsal foot wound; appears clean but weepy SKIN: Warm to touch PSYCH: No active psychosis, hallucinations, depression, SI/HI Family History: Unchanged from Admission Social History: Unchanged from Admission Past Medical History: Unchanged from Admission Objective Active Medications: Acetaminophen (Tylenol Tab*) 650 mg PO Q6H PRN PRN Reason: PAIN Last Admin: 08/15/18 10:05 Dose: 650 mg Carvedilol (Coreg Tab*) 6.25 mg PO BID [facility] Last Admin: 08/16/18 08:11 Dose: 6.25 mg Furosemide (Lasix Tab*) 20 mg PO DAILY [facility] Last Admin: 08/16/18 08:11 Dose: 20 mg Heparin Sodium (Porcine) (Heparin Vial(*)) 5,000 units SUBCUT Q12H [facility] Last Admin: 08/16/18 05:59 Dose: 5,000 units Metolazone (Zaroxolyn Tab*) 2.5 mg PO MoWeFr@1600 [facility] Last Admin: 08/14/18 15:36 Dose: Not Given Oxycodone/Acetaminophen (Percocet 5/325 Tab*) 1 tab PO Q4H PRN PRN Reason: PAIN Last Admin: 08/14/18 06:24 Dose: 1 tab Potassium Chloride (Klor Con Er Tab*) 20 meq PO TID [facility] Last Admin: 08/16/18 13:36 Dose: 20 meq Fluticasone/Salmeterol (Advair Diskus 500-50*) 1 puff INH BID [facility] Last Admin: 08/16/18 07:07 Dose: Not Given Vital Signs - 8 hr 08/16/18 08/16/18 11:57 12:00 Temperature 98 F Pulse Rate 70 Respiratory 20 Rate Blood Pressure 119/66 (mmHg) O2 Sat by Pulse 100 Oximetry Oxygen Devices in Use Now: None Result Diagrams: 08/12/18 13:23 08/16/18 06:51 Additional Lab and Data: Lab Results 08/12/18 08/12/18 08/12/18 Range/Units 12:49 13:23 13:23 WBC 3.1 L (3.5-10.8) 10^3/ul RBC 3.99 L (4.00-5.40) 10^6/ul Hgb 11.7 L (12.0-16.0) g/dl Hct 35 (35-47) % MCV 88 (80-97) fL MCH 29 (27-31) pg MCHC 33 (31-36) g/dl RDW 14 (10.5-15) % Plt Count 203 (150-450) 10^3/ul MPV 7.6 (7.4-10.4) fL Neut % (Auto) 63.3 % Lymph % (Auto) 19.5 % [place] % (Auto) 13.4 % Eos % (Auto) 2.6 % Baso % (Auto) 1.2 % Absolute Neuts (auto) 2.0 (1.5-7.7) 10^3/ul Absolute Lymphs (auto) 0.6 L (1.0-4.8) 10^3/ul Absolute Monos (auto) 0.4 (0-0.8) 10^3/ul Absolute Eos (auto) 0.1 (0-0.6) 10^3/ul Absolute Basos (auto) 0 (0-0.2) 10^3/ul Absolute Nucleated RBC 0 10^3/ul Nucleated RBC % 0.1 ESR 31 H (0-30) mm/Hr Sodium 130 L (135-145) mmol/L Potassium 3.7 (3.5-5.0) mmol/L Chloride 99 L (101-111) mmol/L Carbon Dioxide 23 (22-32) mmol/L Anion Gap 8 (2-11) mmol/L BUN 22 (6-24) mg/dL Creatinine 0.74 (0.51-0.95) mg/dL Est GFR ( Amer) 92.6 (>60) Est GFR (Non-Af Amer) 76.5 (>60) BUN/Creatinine Ratio 29.7 H (8-20) Glucose 89 (70-100) mg/dL Lactic Acid 1.4 (0.5-2.0) mmol/L Calcium 10.0 (8.6-10.3) mg/dL Total Bilirubin 0.40 (0.2-1.0) mg/dL AST 14 (13-39) U/L ALT 7 (7-52) U/L Alkaline Phosphatase 84 (34-104) U/L C-Reactive Protein 12.46 H (<8.01) mg/L Total Protein 7.1 (6.4-8.9) g/dL Albumin 3.8 (3.2-5.2) g/dL Globulin 3.3 (2-4) g/dL Albumin/Globulin Ratio 1.2 (1-3) Microbiology and Other Data: Microbiology 08/12/18 20:25 Skin and Soft Tissue MRSA/MSSA (PCR - Final Foot Right Mrsa Positive S.aureus Positive Gram Stain - Preliminary 08/12/18 20:25 Nasal Screen MRSA (PCR) - Final Nasal Mrsa Detected Assess/Plan/Problems-Billing Assessment: - Patient Problems (1) Foot ulcer, right Current Visit: Yes Status: Acute Code(s): L97.519 - NON-PRS CHRONIC ULCER OTH PRT RIGHT FOOT W UNSP SEVERITY SNOMED Code(s): 79852653 Comment: -Surface S&S pos for MRSA consistently for almost 2 years, no indication for an antibiotic. -Will await subsequent F/U assessment by wound team -Blood Cx (-) x4 days -Repeat CRP mildly elevated today; Unclear why CBC ordered dropped? -Will obtain MRI to evaluate for osteomyelitis -CT scan does not show evidence for osteomyelitis and thought to be non-healing due to forgetfulness and pts failure to F/U with appointments -Follow WBC/CRP (2) HTN (hypertension) Current Visit: Yes Status: Acute Code(s): I10 - ESSENTIAL (PRIMARY) HYPERTENSION SNOMED Code(s): 54078572 Comment: -Continue carvedilol to 6.25 mg bid start PM 3/6 and continue furosemide 20 mg daily. (3) Cognitive change Current Visit: Yes Status: Acute Code(s): R41.89 - OTH SYMPTOMS AND SIGNS W COGNITIVE FUNCTIONS AND AWARENESS SNOMED Code(s): 501905267 Comment: Psychiatric eval shows that the patient lacks capacity to make medical decisions such as refusing to be placed. (4) Hyponatremia Current Visit: Yes Status: Acute Code(s): E87.1 - HYPO-OSMOLALITY AND HYPONATREMIA SNOMED Code(s): 48193586 Comment: -Resolved (5) DVT prophylaxis Current Visit: Yes Status: Acute Code(s): JAR4727 - SNOMED Code(s): 718453165 Comment: -Changed Heparin to q12H due to advanced age Status and Disposition: -For PT eval -Spoke w/ Daughter Daniel (#[phone]) who mentions that she will be moving to [place] and live with her mother. D/W Lucy of Care coordinating team to further tailor disposition plan
[2018-08-16] MEDS: Metolazone TAB* 5 MG PO SCH (17:29)
[2018-08-17] MEDS: Heparin VIAL(*) 5000 UNITS/ML VIAL (FIVE THOUSAND) SUBCUT SCH ×2 (06:03→17:22)
[2018-08-17 08:15] LABS: ABS Basophils 0 10^3/ul (0-0.2); ABS Eosinophils 0.1 10^3/ul (0-0.6); ABS Lymphocytes 0.6 10^3/ul (1.0-4.8); ABS Monocytes 0.3 10^3/ul (0-0.8); ABS Neutrophils 1.6 10^3/ul (1.5-7.7); ABS Nucleated RBC 0 10^3/ul; Eosinophil % 5.3 %; Hematocrit 40 % (35-47); Hemoglobin 12.9 g/dl (12.0-16.0); Lymphocyte % 22.3 %; Mean Corpuscular HGB Conc 33 g/dl (31-36); Mean Corpuscular Hemoglobin 29 pg (27-31); Mean Corpuscular Volume 88 fL (80-97); Nucleated Red Blood Cells % 0.2; Platelet Count 235 10^3/ul (150-450); Red Cell Distribution Width 14 % (10.5-15); White Blood Count 2.5 10^3/ul (3.5-10.8)
[2018-08-17] MEDS: FLUTICASONE SALMETEROL INH SCH ×2 (08:15→19:12)
[2018-08-17] MEDS: Furosemide TAB* 40 MG PO SCH (08:46)
[2018-08-17] MEDS: Potassium Chlor TAB* 20 MEQ TAB.ER PO SCH ×3 (08:46→21:05)
[2018-08-17] MEDS: Carvedilol TAB* 6.25 MG PO SCH ×2 (08:47→21:05)
[2018-08-17 09:09] LABS: BUN/Creatinine Ratio 26.4 (8-20); C Reactive Protein 10.04 mg/L (<8.01); Calcium 10.7 mg/dL (8.6-10.3); EGFR African American 95.5 (>60); Magnesium 2.2 mg/dL (1.9-2.7); Potassium 4.4 mmol/L (3.5-5.0)
--- NOTE | 2018-08-17 16:48 | PN ---
Subjective Date of Service: 08/17/18 Interval History: Patient is feeling well, decreased pain in foot. Patient denies F/C, N/V, abdominal pain, dysuria, dizziness, CP, SOB, claudication. Patient is anxious to leave the hospital but very pleasant. Family History: Unchanged from Admission Social History: Unchanged from Admission Past Medical History: Unchanged from Admission Objective Active Medications: Acetaminophen (Tylenol Tab*) 650 mg PO Q6H PRN PRN Reason: PAIN Last Admin: 08/15/18 10:05 Dose: 650 mg Carvedilol (Coreg Tab*) 6.25 mg PO BID [facility] Last Admin: 08/17/18 08:47 Dose: 6.25 mg Furosemide (Lasix Tab*) 20 mg PO DAILY [facility] Last Admin: 08/17/18 08:46 Dose: 20 mg Heparin Sodium (Porcine) (Heparin Vial(*)) 5,000 units SUBCUT Q12H [facility] Last Admin: 08/17/18 06:03 Dose: 5,000 units Metolazone (Zaroxolyn Tab*) 2.5 mg PO MoWeFr@1600 [facility] Last Admin: 08/16/18 17:29 Dose: 2.5 mg Oxycodone/Acetaminophen (Percocet 5/325 Tab*) 1 tab PO Q4H PRN PRN Reason: PAIN Last Admin: 08/14/18 06:24 Dose: 1 tab Potassium Chloride (Klor Con Er Tab*) 20 meq PO TID [facility] Last Admin: 08/17/18 13:43 Dose: 20 meq Fluticasone/Salmeterol (Advair Diskus 500-50*) 1 puff INH BID [facility] Last Admin: 08/17/18 08:15 Dose: Not Given Vital Signs - 8 hr 08/17/18 08/17/18 08/17/18 09:02 12:13 15:58 Temperature 97.6 F 96.9 F 97.6 F Pulse Rate 63 62 73 Respiratory 20 20 16 Rate Blood Pressure 109/59 109/60 113/54 (mmHg) O2 Sat by Pulse 99 100 98 Oximetry Oxygen Devices in Use Now: None Appearance: Patient is a 73yo female who appears stated age and is sitting in the bed in [facility]. Eyes: No Scleral Icterus, PERRLA Ears/Nose/Mouth/Throat: NL Teeth, Lips, Gums, Clear Oropharnyx, Mucous Membranes Moist Neck: NL Appearance and Movements; NL JVP, Trachea Midline Respiratory: Symmetrical Chest Expansion and Respiratory Effort, Clear to Auscultation Cardiovascular: NL Sounds; No Murmurs; No JVD, RRR, - - Trace Edema Abdominal: NL Sounds; No Tenderness; No Distention, No Hepatosplenomegaly Lymphatic: No Cervical Adenopathy Extremities: No Clubbing, Cyanosis Skin: No Nodules or Sclerosis, - - Non-Healing wound on dorsum of right foot. Neurological: Alert and Oriented x 3, NL Sensation, NL Gait - Unsteady gait. , NL Muscle Strength and Tone, - - CN II-XII intact Result Diagrams: 08/17/18 07:59 08/17/18 07:59 Additional Lab and Data: Lab Results Microbiology and Other Data: Microbiology 08/12/18 20:25 Skin and Soft Tissue MRSA/MSSA (PCR - Final Foot Right Mrsa Positive S.aureus Positive Gram Stain - Preliminary 08/12/18 20:25 Nasal Screen MRSA (PCR) - Final Nasal Mrsa Detected Assess/Plan/Problems-Billing Assessment: Patient is a 73yo female with a PMH for PAD, Chronic Venous Stasis Ulcer, and HTN who is admitted for non-healing venous stasis wound of the RLE without compelling evidence for infection who is awaiting placement in short term rehab due to inability to care for herself at home. - Patient Problems (1) Foot ulcer, right Current Visit: Yes Status: Acute Code(s): L97.519 - NON-PRS CHRONIC ULCER OTH PRT RIGHT FOOT W UNSP SEVERITY SNOMED Code(s): 27509384 Comment: -Surface S&S pos for MRSA consistently for almost 2 years, no indication for an antibiotic. - No Clinical signs of cellulitis - Wound care and elevated with gentle compression if tolerated. - Blood Cx negative - Repeat CRP stable - MRI shows no Osteo (2) HTN (hypertension) Current Visit: Yes Status: Acute Code(s): I10 - ESSENTIAL (PRIMARY) HYPERTENSION SNOMED Code(s): 99215500 Comment: -Continue carvedilol to 6.25 mg bid and continue furosemide 20 mg daily. (3) Cognitive change Current Visit: Yes Status: Acute Code(s): R41.89 - OTH SYMPTOMS AND SIGNS W COGNITIVE FUNCTIONS AND AWARENESS SNOMED Code(s): 958280909 Comment: - Psychiatric eval shows that the patient lacks capacity to make medical decisions such as refusing to be placed. - Rehab placement pending. (4) PAD (peripheral artery disease) Current Visit: Yes Status: Acute Code(s): I73.9 - PERIPHERAL VASCULAR DISEASE, UNSPECIFIED SNOMED Code(s): 421587272 Comment: - ABIs WNL, no claudication - No need for revascularization at this time. (5) DVT prophylaxis Current Visit: Yes Status: Acute Code(s): YQJ3002 - SNOMED Code(s): 748896217 Comment: -Heparin SubQ Q12H Status and Disposition: -For PT eval -Spoke w/ Daughter Daniel (#[phone]) who mentions that she will be moving to [place] and live with her mother. D/W Lucy of Care coordinating team to further tailor disposition plan
[2018-08-18] MEDS: Heparin VIAL(*) 5000 UNITS/ML VIAL (FIVE THOUSAND) SUBCUT SCH ×2 (06:16→17:30)
[2018-08-18] MEDS: FLUTICASONE SALMETEROL INH SCH ×2 (07:45→21:09)
[2018-08-18] MEDS: Potassium Chlor TAB* 20 MEQ TAB.ER PO SCH ×3 (08:24→21:44)
[2018-08-18] MEDS: Carvedilol TAB* 6.25 MG PO SCH ×2 (08:24→21:44)
[2018-08-18] MEDS: Furosemide TAB* 40 MG PO SCH (08:24)
--- NOTE | 2018-08-18 16:32 | PN ---
Subjective Date of Service: 08/18/18 Interval History: patient is anxious to return home, states that daughter is coming to stay with her. Denies chest pain or shortness of breath. denies abd pain n/v/d. denies fever or chills. Family History: Unchanged from Admission Social History: Unchanged from Admission Past Medical History: Unchanged from Admission Objective Active Medications: Acetaminophen (Tylenol Tab*) 650 mg PO Q6H PRN PRN Reason: PAIN Last Admin: 08/15/18 10:05 Dose: 650 mg Carvedilol (Coreg Tab*) 6.25 mg PO BID [facility] Last Admin: 08/18/18 08:24 Dose: 6.25 mg Furosemide (Lasix Tab*) 20 mg PO DAILY [facility] Last Admin: 08/18/18 08:24 Dose: 20 mg Heparin Sodium (Porcine) (Heparin Vial(*)) 5,000 units SUBCUT Q12H [facility] Last Admin: 08/18/18 06:16 Dose: 5,000 units Metolazone (Zaroxolyn Tab*) 2.5 mg PO MoWeFr@1600 [facility] Last Admin: 08/16/18 17:29 Dose: 2.5 mg Oxycodone/Acetaminophen (Percocet 5/325 Tab*) 1 tab PO Q4H PRN PRN Reason: PAIN Last Admin: 08/14/18 06:24 Dose: 1 tab Potassium Chloride (Klor Con Er Tab*) 20 meq PO TID [facility] Last Admin: 08/18/18 13:03 Dose: 20 meq Fluticasone/Salmeterol (Advair Diskus 500-50*) 1 puff INH BID [facility] Last Admin: 08/18/18 07:45 Dose: Not Given Oxygen Devices in Use Now: None Appearance: appears comfortable sittingon the edge of the bed, no acute distress Eyes: No Scleral Icterus Ears/Nose/Mouth/Throat: Clear Oropharnyx, Mucous Membranes Moist Neck: NL Appearance and Movements; NL JVP, Trachea Midline Respiratory: Symmetrical Chest Expansion and Respiratory Effort, Clear to Auscultation Cardiovascular: NL Sounds; No Murmurs; No JVD, No Edema Abdominal: NL Sounds; No Tenderness; No Distention, No Hepatosplenomegaly Extremities: No Edema, No Clubbing, Cyanosis Skin: - - right foot with slight redness, small amt dried drainage noted around 2,3,4 right toes Neurological: Alert and Oriented x 3 Nutrition: Taking PO's Result Diagrams: 08/17/18 07:59 08/17/18 07:59 Additional Lab and Data: Lab Results Microbiology and Other Data: Microbiology 08/12/18 20:25 Skin and Soft Tissue MRSA/MSSA (PCR - Final Foot Right Mrsa Positive S.aureus Positive Gram Stain - Preliminary 08/12/18 20:25 Nasal Screen MRSA (PCR) - Final Nasal Mrsa Detected Assess/Plan/Problems-Billing Assessment: Patient is a 73yo female with a PMH for PAD, Chronic Venous Stasis Ulcer, and HTN who is admitted for non-healing venous stasis wound of the RLE without compelling evidence for infection who is awaiting placement in short term rehab due to inability to care for herself at home. - Patient Problems (1) Foot ulcer, right Current Visit: Yes Status: Acute Code(s): L97.519 - NON-PRS CHRONIC ULCER OTH PRT RIGHT FOOT W UNSP SEVERITY SNOMED Code(s): 27685558 Comment: -Surface S&S pos for MRSA consistently for almost 2 years -she does have mild redness and swelling noted toher 2,3,4 toes - culture is positve for MRSA which is chronic - Wound care and elevated with gentle compression if tolerated. - Blood Cx negative - Repeat CRP stable - MRI shows no Osteo and mild cellulitis - will start doxycycline po (2) Cognitive change Current Visit: Yes Status: Acute Code(s): R41.89 - OTH SYMPTOMS AND SIGNS W COGNITIVE FUNCTIONS AND AWARENESS SNOMED Code(s): 599590270 Comment: - Psychiatric eval shows that the patient lacks capacity to make medical decisions such as refusing to be placed. - Rehab placement pending. (3) HTN (hypertension) Current Visit: Yes Status: Acute Code(s): I10 - ESSENTIAL (PRIMARY) HYPERTENSION SNOMED Code(s): 24573451 Comment: -Continue carvedilol to 6.25 mg bid and continue furosemide 20 mg daily. (4) Hyponatremia Current Visit: Yes Status: Acute Code(s): E87.1 - HYPO-OSMOLALITY AND HYPONATREMIA SNOMED Code(s): 70456742 Comment: -Resolved (5) PAD (peripheral artery disease) Current Visit: Yes Status: Acute Code(s): I73.9 - PERIPHERAL VASCULAR DISEASE, UNSPECIFIED SNOMED Code(s): 315671945 Comment: - ABIs WNL, no claudication - No need for revascularization at this time. (6) DVT prophylaxis Current Visit: Yes Status: Acute Code(s): KGB5533 - SNOMED Code(s): 910608152 Comment: -Heparin SubQ Q12H (7) Full code status Current Visit: Yes Status: Acute Code(s): Z78.9 - OTHER SPECIFIED HEALTH STATUS SNOMED Code(s): 182229367 Status and Disposition: -For PT eval -Spoke w/ Daughter Daniel (#[phone]) who mentions that she will be moving to [place] and live with her mother. D/W Lucy of Care coordinating team to further tailor disposition plan
[2018-08-18] MEDS: DOXYcycline CAP(*) 100 MG PO SCH (21:44)
[2018-08-19] MEDS: Heparin VIAL(*) 5000 UNITS/ML VIAL (FIVE THOUSAND) SUBCUT SCH ×2 (05:51→18:24)
[2018-08-19] MEDS: FLUTICASONE SALMETEROL INH SCH ×2 (08:08→20:27)
[2018-08-19] MEDS: Furosemide TAB* 40 MG PO SCH (08:22)
[2018-08-19] MEDS: Carvedilol TAB* 6.25 MG PO SCH ×2 (08:22→20:21)
[2018-08-19] MEDS: DOXYcycline CAP(*) 100 MG PO SCH ×2 (08:22→20:21)
[2018-08-19] MEDS: Potassium Chlor TAB* 20 MEQ TAB.ER PO SCH ×3 (08:22→20:21)
--- NOTE | 2018-08-19 14:51 | PN ---
Subjective Date of Service: 08/19/18 Interval History: Pt continues to be anxious to go home to help her daughter "clean up." She states that her foot is no longer painful, although it looks bad, she says. She denies CP, SOB, abd pain, n/v/d/c, pain in the calves. Family History: Unchanged from Admission Social History: Unchanged from Admission Past Medical History: Unchanged from Admission Objective Active Medications: Acetaminophen (Tylenol Tab*) 650 mg PO Q6H PRN Carvedilol (Coreg Tab*) 6.25 mg PO BID [facility] Doxycycline Hyclate (Vibramycin Cap(*)) 100 mg PO BID [facility] Furosemide (Lasix Tab*) 20 mg PO DAILY [facility] Heparin Sodium (Porcine) (Heparin Vial(*)) 5,000 units SUBCUT Q12H [facility] Metolazone (Zaroxolyn Tab*) 2.5 mg PO MoWeFr@1600 [facility] Oxycodone/Acetaminophen (Percocet 5/325 Tab*) 1 tab PO Q4H PRN Potassium Chloride (Klor Con Er Tab*) 20 meq PO TID [facility] Fluticasone/Salmeterol (Advair Diskus 500-50*) 1 puff INH BID [facility] Vital Signs: Temp Pulse Resp BP Pulse Ox 98.0 F 71 16 125/63 97 08/19/18 08:22 08/19/18 08:22 08/19/18 08:22 08/19/18 08:22 08/19/18 08:22 Oxygen Devices in Use Now: None Appearance: Pt is sitting up in chair watching television. She appears well and in no acute distress. Eyes: No Scleral Icterus Ears/Nose/Mouth/Throat: NL Teeth, Lips, Gums, Clear Oropharnyx, Mucous Membranes Moist Neck: NL Appearance and Movements; NL JVP, Trachea Midline Respiratory: Symmetrical Chest Expansion and Respiratory Effort, Clear to Auscultation Cardiovascular: NL Sounds; No Murmurs; No JVD, RRR, - - B/L LE edema Abdominal: NL Sounds; No Tenderness; No Distention, No Hepatosplenomegaly Extremities: No Clubbing, Cyanosis, - - B/l LE edema. R foot wound at dorsal surface of digits 2-3 that is slightly erythematous and swollen; wound is dry and scabbing without discharge. Neurological: Alert and Oriented x 3 Result Diagrams: 08/17/18 07:59 08/17/18 07:59 Additional Lab and Data: Lab Results Microbiology and Other Data: Microbiology 08/12/18 20:25 Skin and Soft Tissue MRSA/MSSA (PCR - Final Foot Right Mrsa Positive S.aureus Positive Gram Stain - Preliminary 08/12/18 20:25 Nasal Screen MRSA (PCR) - Final Nasal Mrsa Detected Assess/Plan/Problems-Billing Assessment: Patient is a 73yo female with a PMH for PAD, Chronic Venous Stasis Ulcer, and HTN who is admitted for non-healing venous stasis wound of the RLE without compelling evidence for infection who is awaiting placement in short term rehab due to inability to care for herself at home. - Patient Problems (1) Foot ulcer, right Comment: -Surface S&S pos for MRSA consistently for almost 2 years -She does have mild redness and swelling noted to her 2,3,4 toes - culture is positve for MRSA which is chronic - Wound care and elevated with gentle compression if tolerated. - Blood Cx negative - Repeat CRP stable - MRI shows no Osteo and mild cellulitis - Doxycycline PO (2) Cognitive change Comment: - Psychiatric eval shows that the patient lacks capacity to make medical decisions such as refusing to be placed. - Rehab placement pending. (3) HTN (hypertension) Comment: -Continue carvedilol to 6.25 mg bid and continue furosemide 20 mg daily. (4) PAD (peripheral artery disease) Comment: -ABIs WNL, no claudication -No need for revascularization at this time (5) Hyponatremia Comment: -Resolved (6) DVT prophylaxis Comment: -Heparin SubQ Q12H (7) Full code status Status and Disposition: -For PT eval -Spoke w/ Daughter Daniel (#[phone]) who mentions that she will be moving to [place] and live with her mother. D/W Lucy of Care coordinating team to further tailor disposition plan
[2018-08-19] MEDS: Metolazone TAB* 5 MG PO SCH (18:24)
[2018-08-20] MEDS: Heparin VIAL(*) 5000 UNITS/ML VIAL (FIVE THOUSAND) SUBCUT SCH ×2 (05:59→16:36)
[2018-08-20] MEDS: Potassium Chlor TAB* 20 MEQ TAB.ER PO SCH ×3 (07:39→19:51)
[2018-08-20] MEDS: DOXYcycline CAP(*) 100 MG PO SCH ×2 (07:39→19:50)
[2018-08-20] MEDS: Furosemide TAB* 40 MG PO SCH (07:39)
[2018-08-20] MEDS: Carvedilol TAB* 6.25 MG PO SCH ×2 (07:39→19:50)
[2018-08-20] MEDS: FLUTICASONE SALMETEROL INH SCH ×2 (08:38→19:35)
[2018-08-20] MEDS: Acetaminophen TAB* 325 MG PO PRN (11:42)
[2018-08-21] MEDS: Heparin VIAL(*) 5000 UNITS/ML VIAL (FIVE THOUSAND) SUBCUT SCH ×2 (05:58→17:52)
[2018-08-21] MEDS: FLUTICASONE SALMETEROL INH SCH ×2 (08:30→19:15)
[2018-08-21] MEDS: Carvedilol TAB* 6.25 MG PO SCH ×2 (08:49→21:13)
[2018-08-21] MEDS: Potassium Chlor TAB* 20 MEQ TAB.ER PO SCH ×3 (08:49→21:13)
[2018-08-21] MEDS: DOXYcycline CAP(*) 100 MG PO SCH ×2 (08:49→21:13)
[2018-08-21] MEDS: Furosemide TAB* 40 MG PO SCH (08:50)
[2018-08-21] MEDS: Acetaminophen TAB* 325 MG PO PRN (09:00)
--- NOTE | 2018-08-21 13:35 | PN ---
Subjective Date of Service: 08/21/18 Interval History: Ms. Mulligan is a 73 yo female with PMH significant for HTN, PAD, and chronic non healing wounds of the LEs who presented to the emergency room with complaints of a non healing wound and concern for her ability to care for herself. Ms. Mulligan was previously following with the wound clinic but was discharged from there in June 2018. She states that she has not been using a dressing on the right foot. Patient seen and examined at bedside. Denies fever, chills, pain in the right foot. She feels like the right foot wound is improving. Family History: Unchanged from Admission Social History: Unchanged from Admission Past Medical History: Unchanged from Admission Objective Active Medications: Acetaminophen (Tylenol Tab*) 650 mg PO Q6H PRN Reason: PAIN Carvedilol (Coreg Tab*) 6.25 mg PO BID [facility] Doxycycline Hyclate (Vibramycin Cap(*)) 100 mg PO BID [facility] Furosemide (Lasix Tab*) 20 mg PO DAILY [facility] Heparin Sodium (Porcine) (Heparin Vial(*)) 5,000 units SUBCUT Q12H [facility] Metolazone (Zaroxolyn Tab*) 2.5 mg PO MoWeFr@1600 [facility] Potassium Chloride (Klor Con Er Tab*) 20 meq PO TID [facility] Fluticasone/Salmeterol (Advair Diskus 500-50*) 1 puff INH BID [facility] Vital Signs - 8 hr 08/21/18 08/21/18 08:00 08:04 Temperature 97.6 F Pulse Rate 63 Respiratory 17 17 Rate Blood Pressure 114/59 (mmHg) O2 Sat by Pulse 100 Oximetry Oxygen Devices in Use Now: None Appearance: NAD, sitting up in a chair Ears/Nose/Mouth/Throat: Mucous Membranes Moist Skin: - - See skin note below Nutrition: Taking PO's Result Diagrams: 08/24/18 08:58 08/24/18 08:58 Microbiology and Other Data: Microbiology 08/12/18 20:25 Skin and Soft Tissue MRSA/MSSA (PCR - Final Foot Right Mrsa Positive S.aureus Positive Gram Stain - Preliminary 08/12/18 20:25 Nasal Screen MRSA (PCR) - Final Nasal Mrsa Detected Skin Deviation Note - Skin Deviation Findings Right dorsal foot - There is an area of crusting to the dorsal aspect of the foot near the toes, this area measures 6 cm x 5 cm. The skin is moist between the 1st and 2nd toes. DP is present with doppler. Assessment/Plan: Ms. Mulligan is a 73yo female with a PMH for PAD, Chronic Venous Stasis Ulcer, and HTN who is admitted for non-healing venous stasis wound of the RLE without compelling evidence for infection who is awaiting placement in short term rehab due to inability to care for herself at home. 1. Right foot venous stasis ulcer- No signs of infection at this time. Continue to leave wound open to air. Recommend placing dry gauze between toes to prevent breakdown. Can consider wound provider eval upon admission to a extended care facility. 2. Peripheral arterial disease. 3. Diet. Heart Healthy. 4. Code Status. Full code status. 5. Disposition. Disposition per primary medicine team. TIME SPENT: Time for this wound consultation was 20 minutes, and 10 minutes was spent with the patient discussing the events of the past week, assessing, measuring, and photographing wounds. Wound Problem/Plan Is Patient a Wound Clinic Patient: No - Former patient, discharged in 06/2018 Attending: Miryam Dobbs
[2018-08-21] MEDS: Metolazone TAB* 5 MG PO SCH (15:21)
[2018-08-22] MEDS: Heparin VIAL(*) 5000 UNITS/ML VIAL (FIVE THOUSAND) SUBCUT SCH ×2 (05:41→20:11)
[2018-08-22] MEDS: FLUTICASONE SALMETEROL INH SCH ×2 (07:24→19:22)
[2018-08-22] MEDS: Acetaminophen TAB* 325 MG PO PRN ×2 (09:54→20:28)
[2018-08-22] MEDS: Furosemide TAB* 40 MG PO SCH (09:55)
[2018-08-22] MEDS: Potassium Chlor TAB* 20 MEQ TAB.ER PO SCH ×3 (09:55→20:10)
[2018-08-22] MEDS: DOXYcycline CAP(*) 100 MG PO SCH ×2 (09:55→20:11)
[2018-08-22] MEDS: Carvedilol TAB* 6.25 MG PO SCH ×2 (10:22→20:11)
[2018-08-23] MEDS: Heparin VIAL(*) 5000 UNITS/ML VIAL (FIVE THOUSAND) SUBCUT SCH ×2 (05:54→17:00)
[2018-08-23] MEDS: Furosemide TAB* 40 MG PO SCH (08:37)
[2018-08-23] MEDS: DOXYcycline CAP(*) 100 MG PO SCH ×2 (08:37→22:58)
[2018-08-23] MEDS: Potassium Chlor TAB* 20 MEQ TAB.ER PO SCH ×3 (08:37→22:58)
[2018-08-23] MEDS: Carvedilol TAB* 6.25 MG PO SCH ×2 (08:37→22:57)
[2018-08-23] MEDS: FLUTICASONE SALMETEROL INH SCH ×2 (10:47→21:09)
[2018-08-23] MEDS: Metolazone TAB* 5 MG PO SCH (17:00)
[2018-08-23] MEDS: oxyCODONE/Acetamin 5/325 MG* TAB PO PRN (22:57)
[2018-08-24] MEDS: Heparin VIAL(*) 5000 UNITS/ML VIAL (FIVE THOUSAND) SUBCUT SCH ×2 (06:16→16:14)
[2018-08-24] MEDS: Potassium Chlor TAB* 20 MEQ TAB.ER PO SCH ×3 (08:11→21:10)
[2018-08-24] MEDS: DOXYcycline CAP(*) 100 MG PO SCH ×2 (08:11→21:10)
[2018-08-24] MEDS: Carvedilol TAB* 6.25 MG PO SCH ×2 (08:11→21:10)
[2018-08-24] MEDS: Furosemide TAB* 40 MG PO SCH (08:11)
[2018-08-24 09:12] LABS: ABS Basophils 0 10^3/ul (0-0.2); ABS Eosinophils 0.1 10^3/ul (0-0.6); ABS Lymphocytes 0.6 10^3/ul (1.0-4.8); ABS Monocytes 0.3 10^3/ul (0-0.8); ABS Neutrophils 1.4 10^3/ul (1.5-7.7); ABS Nucleated RBC 0 10^3/ul; Eosinophil % 4.3 %; Hematocrit 40 % (33-41); Lymphocyte % 24.1 %; Mean Corpuscular HGB Conc 33 g/dL (31-36); Mean Corpuscular Hemoglobin 29 pg (27-31); Mean Corpuscular Volume 88 fL (80-97); Mean Platelet Volume 8.2 fL (7.4-10.4); Nucleated Red Blood Cells % 0.1; Platelet Count 206 10^3/uL (150-450); Red Cell Distribution Width 14 % (10.5-15); White Blood Count 2.5 10^3/uL (3.5-10.8)
[2018-08-24 09:29] LABS: BUN/Creatinine Ratio 36.8 (8-20); Calcium 10.6 mg/dL (8.6-10.3); EGFR African American 76.8 (>60); EGFR Non-African American 63.5 (>60); Magnesium 1.8 mg/dL (1.9-2.7); Potassium 4.3 mmol/L (3.5-5.0)
[2018-08-24] MEDS: FLUTICASONE SALMETEROL INH SCH ×2 (12:48→19:53)
[2018-08-24] MEDS: Magnesium Oxide TAB* 400 MG PO SCH (16:15)
--- NOTE | 2018-08-24 17:46 | PN ---
Subjective Date of Service: 08/24/18 Interval History: Resting in bed watching TV. Reports pain is well controlled. Reports she feels her foot is improving as it is "drying out". 12 point ROS completed. Family History: Unchanged from Admission Social History: Unchanged from Admission Past Medical History: Unchanged from Admission Objective Active Medications: Carvedilol (Coreg Tab*) 6.25 mg PO BID [facility] Last Admin: 08/24/18 08:11 Dose: 6.25 mg Doxycycline Hyclate (Vibramycin Cap(*)) 100 mg PO BID [facility] Last Admin: 08/24/18 08:11 Dose: 100 mg Furosemide (Lasix Tab*) 20 mg PO DAILY [facility] Last Admin: 08/24/18 08:11 Dose: 20 mg Heparin Sodium (Porcine) (Heparin Vial(*)) 5,000 units SUBCUT Q12H [facility] Last Admin: 08/24/18 16:14 Dose: 5,000 units Magnesium Oxide (Magox 400 Tab*) 400 mg PO DAILY@1500 [facility] Last Admin: 08/24/18 16:15 Dose: 400 mg Metolazone (Zaroxolyn Tab*) 2.5 mg PO MoWeFr@1600 [facility] Last Admin: 08/23/18 17:00 Dose: 2.5 mg Oxycodone/Acetaminophen (Percocet 5/325 Tab*) 1 tab PO Q4H PRN PRN Reason: PAIN Last Admin: 08/23/18 22:57 Dose: 1 tab Potassium Chloride (Klor Con Er Tab*) 20 meq PO TID [facility] Last Admin: 08/24/18 14:04 Dose: 20 meq Fluticasone/Salmeterol (Advair Diskus 500-50*) 1 puff INH BID [facility] Last Admin: 08/24/18 12:48 Dose: Not Given Vital Signs - 8 hr 08/24/18 08/24/18 11:16 15:34 Temperature 97.3 F 97.4 F Pulse Rate 68 75 Respiratory 16 20 Rate Blood Pressure 100/50 128/61 (mmHg) O2 Sat by Pulse 100 98 Oximetry Oxygen Devices in Use Now: None Appearance: Comfortable, NAD Eyes: No Scleral Icterus Ears/Nose/Mouth/Throat: Clear Oropharnyx, Mucous Membranes Moist Neck: NL Appearance and Movements; NL JVP Respiratory: Symmetrical Chest Expansion and Respiratory Effort, Clear to Auscultation Cardiovascular: NL Sounds; No Murmurs; No JVD, RRR, No Edema Abdominal: NL Sounds; No Tenderness; No Distention Lymphatic: No Cervical Adenopathy Extremities: No Edema, No Clubbing, Cyanosis, - - Dry wound to right foot Skin: - - as above Neurological: Alert and Oriented x 3, NL Muscle Strength and Tone Nutrition: Taking PO's Result Diagrams: 08/24/18 08:58 08/24/18 08:58 Additional Lab and Data: Laboratory Results - last 24 hr 08/24/18 08/24/18 08:58 08:58 WBC 2.5 L RBC 4.50 Hgb 13.0 Hct 40 MCV 88 MCH 29 MCHC 33 RDW 14 Plt Count 206 MPV 8.2 Neut % (Auto) 57.6 Lymph % (Auto) 24.1 [place] % (Auto) 13.0 Eos % (Auto) 4.3 Baso % (Auto) 1.0 Absolute Neuts (auto) 1.4 L Absolute Lymphs (auto) 0.6 L Absolute Monos (auto) 0.3 Absolute Eos (auto) 0.1 Absolute Basos (auto) 0 Absolute Nucleated RBC 0 Nucleated RBC % 0.1 Sodium 134 L Potassium 4.3 Chloride 103 Carbon Dioxide 27 Anion Gap 4 BUN 32 H Creatinine 0.87 Est GFR ( Amer) 76.8 Est GFR (Non-Af Amer) 63.5 BUN/Creatinine Ratio 36.8 H Glucose 87 Calcium 10.6 H Magnesium 1.8 L Microbiology and Other Data: Assess/Plan/Problems-Billing Assessment: Patient is a 73yo female with a PMH for PAD, Chronic Venous Stasis Ulcer, and HTN who is admitted for non-healing venous stasis wound of the RLE without compelling evidence for infection who is awaiting placement in short term rehab due to inability to care for herself at home. - Patient Problems (1) Cognitive change Comment: - Psychiatric eval shows that the patient lacks capacity to make medical decisions such as refusing to be placed. - Rehab placement pending. (2) Foot ulcer, right Comment: -Surface S&S pos for MRSA consistently for almost 2 years -She does have mild redness and swelling noted to her 2,3,4 toes - culture is positve for MRSA which is chronic - Wound care and elevated with gentle compression if tolerated. - Blood Cx negative - Repeat CRP stable - MRI shows no Osteo and mild cellulitis - Doxycycline PO (day 7) (3) HTN (hypertension) Comment: -Continue carvedilol to 6.25 mg bid and continue furosemide 20 mg daily. (4) Hyponatremia Comment: - 130 on admissoin and resolved. - Today 134. - Repeat in 2 days as it is close to goal (5) DVT prophylaxis Comment: -Heparin SubQ Q12H (6) Full code status Status and Disposition: - For PT eval - Previous provider spoke w/ Daughter Daniel (#[phone]) who mentions that she will be moving to [place] and live with her mother. [facility] of [facility] coordinating team aware to further tailor disposition plan Attending: Evelia Bartlett
[2018-08-25] MEDS: Heparin VIAL(*) 5000 UNITS/ML VIAL (FIVE THOUSAND) SUBCUT SCH ×2 (05:31→17:00)
[2018-08-25] MEDS: Potassium Chlor TAB* 20 MEQ TAB.ER PO SCH ×3 (08:11→23:28)
[2018-08-25] MEDS: Furosemide TAB* 40 MG PO SCH (08:11)
[2018-08-25] MEDS: Carvedilol TAB* 6.25 MG PO SCH ×2 (08:12→23:28)
[2018-08-25] MEDS: DOXYcycline CAP(*) 100 MG PO SCH ×2 (08:12→23:27)
[2018-08-25] MEDS: FLUTICASONE SALMETEROL INH SCH ×2 (10:56→19:46)
[2018-08-25] MEDS: Magnesium Oxide TAB* 400 MG PO SCH (14:19)
[2018-08-25] MEDS: oxyCODONE/Acetamin 5/325 MG* TAB PO PRN (23:33)
[2018-08-26] MEDS: Heparin VIAL(*) 5000 UNITS/ML VIAL (FIVE THOUSAND) SUBCUT SCH ×2 (05:42→18:21)
[2018-08-26] MEDS: FLUTICASONE SALMETEROL INH SCH ×2 (08:44→19:25)
[2018-08-26] MEDS: Potassium Chlor TAB* 20 MEQ TAB.ER PO SCH ×3 (09:53→21:14)
[2018-08-26] MEDS: DOXYcycline CAP(*) 100 MG PO SCH ×2 (09:53→21:14)
[2018-08-26] MEDS: Furosemide TAB* 40 MG PO SCH (09:53)
[2018-08-26] MEDS: Carvedilol TAB* 6.25 MG PO SCH ×2 (09:56→21:14)
[2018-08-26] MEDS: Magnesium Oxide TAB* 400 MG PO SCH (13:41)
[2018-08-26] MEDS: Metolazone TAB* 5 MG PO SCH (16:04)
[2018-08-27] MEDS: Heparin VIAL(*) 5000 UNITS/ML VIAL (FIVE THOUSAND) SUBCUT SCH ×2 (06:46→18:21)
[2018-08-27] MEDS: FLUTICASONE SALMETEROL INH SCH ×2 (07:41→19:36)
[2018-08-27] MEDS: DOXYcycline CAP(*) 100 MG PO SCH ×2 (10:22→20:33)
[2018-08-27] MEDS: Potassium Chlor TAB* 20 MEQ TAB.ER PO SCH ×3 (10:22→20:33)
[2018-08-27] MEDS: Carvedilol TAB* 6.25 MG PO SCH ×2 (10:22→20:33)
[2018-08-27] MEDS: Furosemide TAB* 40 MG PO SCH (10:23)
[2018-08-27] MEDS: Magnesium Oxide TAB* 400 MG PO SCH (15:20)
[2018-08-28] MEDS: Heparin VIAL(*) 5000 UNITS/ML VIAL (FIVE THOUSAND) SUBCUT SCH ×2 (05:43→19:20)
[2018-08-28] MEDS: FLUTICASONE SALMETEROL INH SCH ×2 (08:22→19:35)
[2018-08-28] MEDS: Furosemide TAB* 40 MG PO SCH (10:15)
[2018-08-28] MEDS: DOXYcycline CAP(*) 100 MG PO SCH ×2 (10:15→20:15)
[2018-08-28] MEDS: Carvedilol TAB* 6.25 MG PO SCH ×2 (10:15→20:15)
[2018-08-28] MEDS: Potassium Chlor TAB* 20 MEQ TAB.ER PO SCH ×3 (10:15→20:15)
--- NOTE | 2018-08-28 10:59 | PN ---
Subjective Date of Service: 08/28/18 Interval History: Ms. Mulligan is a 73 yo female with PMH significant for HTN, PAD, and chronic non healing wounds of the LEs who presented to the emergency room with complaints of a non healing wound and concern for her ability to care for herself. Ms. Mulligan was previously following with the wound clinic but was discharged from there in June 2018. She states that she has not been using a dressing on the right foot. Patient seen and examined at bedside. Denies fever, chills. She has mild discomfort in the right foot. She feels like the right foot wound overall is improving. Family History: Unchanged from Admission Social History: Unchanged from Admission Past Medical History: Unchanged from Admission Objective Active Medications: Carvedilol (Coreg Tab*) 6.25 mg PO BID [facility] Doxycycline Hyclate (Vibramycin Cap(*)) 100 mg PO BID [facility] Furosemide (Lasix Tab*) 20 mg PO DAILY [facility] Heparin Sodium (Porcine) (Heparin Vial(*)) 5,000 units SUBCUT Q12H [facility] Magnesium Oxide (Magox 400 Tab*) 400 mg PO DAILY@1500 [facility] Metolazone (Zaroxolyn Tab*) 2.5 mg PO MoWeFr@1600 [facility] Oxycodone/Acetaminophen (Percocet 5/325 Tab*) 1 tab PO Q4H PRN Reason: PAIN Potassium Chloride (Klor Con Er Tab*) 20 meq PO TID [facility] Fluticasone/Salmeterol (Advair Diskus 500-50*) 1 puff INH BID [facility] Vital Signs - 8 hr 08/28/18 08/28/18 08:24 10:09 Temperature 97.5 F Pulse Rate 63 57 Respiratory 16 18 Rate Blood Pressure 103/60 (mmHg) O2 Sat by Pulse 98 100 Oximetry Oxygen Devices in Use Now: None Appearance: NAD, sitting up on the side of the bed Ears/Nose/Mouth/Throat: Mucous Membranes Moist Skin: - - See skin note below Neurological: Alert and Oriented x 3 Result Diagrams: 08/24/18 08:58 08/24/18 08:58 Additional Lab and Data: Microbiology and Other Data: Microbiology 08/12/18 20:25 Skin and Soft Tissue MRSA/MSSA (PCR - Final Foot Right Mrsa Positive S.aureus Positive Gram Stain - Preliminary 08/12/18 20:25 Nasal Screen MRSA (PCR) - Final Nasal Mrsa Detected Skin Deviation Note - Skin Deviation Findings Right dorsal foot- There is a wound 6.5 cm x 5 cm. The wound is dry with crusting. The surrounding skin is intact. Assessment/Plan: Ms. Mulligan is a 73yo female with a PMH for PAD, Chronic Venous Stasis Ulcer, and HTN who is admitted for non-healing venous stasis wound of the RLE without compelling evidence for infection who is awaiting placement in short term rehab due to inability to care for herself at home. 1. Right foot venous stasis ulcer. No signs of infection at this time. Continue to leave wound open to air. Recommend placing dry gauze between toes if there is any drainage to prevent breakdown. Overall the area of crusting is slowly improving. 2. Peripheral arterial disease. 3. Diet. Heart Healthy. 4. Code Status. Full code status. 5. Disposition. Disposition per primary medicine team. TIME SPENT: Time spent for this wound consultation was 15 minutes and 10 minutes was spent with the patient assessing, measuring, and photographing the wound. Wound Problem/Plan Is Patient a Wound Clinic Patient: No - Previous patient Attending: Miryam Dobbs
[2018-08-28] MEDS: Magnesium Oxide TAB* 400 MG PO SCH (15:24)
[2018-08-28] MEDS: Metolazone TAB* 5 MG PO SCH (15:24)
[2018-08-29] MEDS: Heparin VIAL(*) 5000 UNITS/ML VIAL (FIVE THOUSAND) SUBCUT SCH (05:22)
[2018-08-29] MEDS: FLUTICASONE SALMETEROL INH SCH (07:53)
[2018-08-29 08:19] VITALS: BP 94/44
[2018-08-29] MEDS: Furosemide TAB* 40 MG PO SCH (11:07)
[2018-08-29] MEDS: Potassium Chlor TAB* 20 MEQ TAB.ER PO SCH ×2 (11:07→15:39)
[2018-08-29] MEDS: Carvedilol TAB* 6.25 MG PO SCH (11:07)
[2018-08-29] MEDS: DOXYcycline CAP(*) 100 MG PO SCH (11:07)
[2018-08-29] MEDS: Magnesium Oxide TAB* 400 MG PO SCH (15:39)
--- NOTE | 2018-08-29 18:27 | DS ---
CC: Dr. Marii Swain * DISCHARGE SUMMARY: DATE OF ADMISSION: 08/12/18 DATE OF DISCHARGE: 08/29/18 PRIMARY CARE PROVIDER: Dr. Marii Swain. ATTENDING PHYSICIAN: Dr. Darlyn Gaona * (dictated by Kelly Garza NP). PRIMARY DIAGNOSES: 1. Lacking capacity to make medical decisions. 2. Right foot ulcer. 3. Peripheral arterial disease. SECONDARY DIAGNOSIS: Hypertension. STUDIES WHILE IN THE HOSPITAL: 1. Right lower extremity CT on 08/12/18 reads as soft tissue plane edema without identification of a loculated abscess collection, within normal limits of noncontrast CT. No CT evidence for osteomyelitis. If there is persistent clinical index of suspicion for osteomyelitis, consider MRI or in the setting of contraindication for MRI, 3-phase bone scan for further assessment. Advanced arthropathy as described in the body of the report. 2. EKG on 08/12/18 shows normal sinus rhythm with a rate of 77, right bundle- branch block, QTc 463. I will note that there is moderate amount of artifact in this EKG. 3. Right lower extremity MRI on 08/16/18 reads as no evidence of pulmonary replacement to suggest osteomyelitis. Diffuse subcutaneous emphysema edema is noted. HISTORY OF PRESENT ILLNESS AND HOSPITAL COURSE: Ms. Mulligan is a 73-year-old female with past medical history of hypertension and lower extremity wounds, who presented to the emergency room on 08/12/18 because of a nonhealing foot wound and concern for her safety at home. Please see the history and physical by Adelita Arreguin NP, for complete summary of the events leading up to this hospitalization. In short, the patient had been checked on by CAP and there was concern about her nonhealing wound and the ability to care for herself and so she was transferred to the hospital for further evaluation. In the emergency room, she had imaging as noted above. She was noted to have a wound to the top of her right foot, which was dry without erythema or drainage. Her CRP was mildly elevated. The patient was admitted by hospitalist service. The patient's wound culture was positive for MRSA and she was started on doxycycline. A psychiatry consult was placed because it was unclear if the patient was able to care for herself at home. The patient was seen by Edith Lama NP, who indicated that the patient lacks capacity to make informed medical decisions and Psychiatry felt as though as-soon-as placement was warranted. She was additionally seen by Yany Arriaga NP, with wound care, who advised that there was no specific wound care necessary, though did recommend an MRI of the foot to rule out osteomyelitis. The MRI was completed and results were noted above. The patient was ultimately made [facility] care while case management was seeking placement for her. Ultimately , case management was able to get in touch with the patient's daughter, who was living in [place]. The daughter did fly out here and indicated that she would be willing to take care of her mother at home. There is some question as to whether or not the patient's daughter has the mental capacity to appropriately care for her mother, though at this point, she is an active kin and does have legal grounds to make decisions for her mother at this point. Case management has arranged for VNS services in order to provide additional support. On exam this morning, the patient reports feeling well. She notes some chronic arthritic pain which is at baseline. Her right foot wound is open to air and dry. There is no erythema or drainage to suggest infection. Her vital signs have been stable. Ms. Mulligan is stable for discharge today. Vital signs are as follows: Temp 97.8, heart rate 66, respiratory rate 16, oxygen saturation 95% on room air, blood pressure 94/44. DISCHARGE MEDICATIONS: New medication: 1. Magnesium oxide 400 mg p.o. daily. Changed home medications: 1. Furosemide 20 mg p.o. daily (previously was 40 mg daily). 2. Carvedilol 6.25 mg p.o. b.i.d. (previously was 12.5 mg b.i.d.). Continued medications: 1. Advair 500/50 one puff b.i.d. 2. Metolazone 2.5 mg p.o. every Sunday, Sunday, Sunday. 3. Potassium chloride 20 mEq p.o. t.i.d. 4. Acetaminophen 500 mg p.o. b.i.d. 5. Cholecalciferol 1000 units p.o. daily. 6. [place]-3 fatty acid 1000 mg p.o. daily. 7. Percocet 5/325 one tab p.o. q.4 hours p.r.n. pain. DISCHARGE PLAN: Ms. Mulligan will be discharged home in the care of her daughter. Activity will be as tolerated. Diet should be heart healthy. Medications are noted above. I will note that the patient has completed a 10- day course of doxycycline and does not require any further antibiotics for her right foot wound. I have decreased the dosing of her furosemide and carvedilol as we did decrease the doses of those while here in the hospital and her blood pressure has been stable on those new doses. She can continue her other usual medications as noted above. She was taking Percocet prior to arriving in the hospital and I have not prescribed any additional Percocet for her. As noted above, case management has arranged for visiting nurse services to follow up with the patient to provide additional support at home. She will need to follow up with her primary care provider in 4 to 7 days. She has been advised by Wound Care to dress the right foot wound with a dry sterile gauze, though no specific wound care is needed at this point. The patient should return to the emergency room or nearest hospital for any worsening symptoms, shortness of breath, lightheadedness, dizziness, chest discomfort, high fever, chills, night sweats, loss of consciousness, or any other worrisome signs or symptoms. DISCHARGE CONDITION: Stable. DISCHARGE DISPOSITION: Home. This is a summarized report of a complex medical history and hospital stay. For further details, please see the entire medical record. TIME SPENT: Approximately 40 minutes were spent on this discharge. KELLY GARZA NP [id number]/CPS #: [id number] DANYELLE
== END 2018-08-29 16:00 | disposition home health service (06) | DRG 593 ==
LOC: ED 11:28 → MED 15:09 → OBSVTOIN 08-16 17:00
PROVIDERS: ADMIT Internal Medicine; ATTEND Internal Medicine
DX: L97.519 Non-pressure chronic ulcer of other part of right foot with unspecified severity (principal); E87.1 Hypo-osmolality and hyponatremia; B95.62 Methicillin resistant Staphylococcus aureus infection as the cause of diseases classified elsewhere; Z75.1 Person awaiting admission to adequate facility elsewhere; I73.9 Peripheral vascular disease, unspecified; I10 Essential (primary) hypertension; I87.2 Venous insufficiency (chronic) (peripheral); R60.0 Localized edema; M25.551 Pain in right hip; R41.89 Other symptoms and signs involving cognitive functions and awareness; Z74.2 Need for assistance at home and no other household member able to render care; Z79.1 Long term (current) use of non-steroidal anti-inflammatories (NSAID); Z79.891 Long term (current) use of opiate analgesic; Z79.899 Other long term (current) drug therapy; Z88.8 Allergy status to other drugs, medicaments and biological substances; Z80.9 Family history of malignant neoplasm, unspecified
CPT/HCPCS: 36415; 80048; 80053; 82330; 83605; 83735; 84100; 85025; 85652; 86140; 86141; 87040; 87070; 87077; 87186; 87205; 87640; 87641; 93005; 94640; 99284; A9270-GY; G0378; G8978-GP-CI; G8979-GP-CI; G8980-GP-CI; G8987-GO-CI; G8988-GO-CI; G8989-GO-CI; J1644; J2543; J3475

== ENCOUNTER 2018-10-29 13:16 | Emergency (ER) | payer MEDICARE ==
[2018-10-29 14:48] LABS: Albumin 3.9 g/dL (3.2-5.2); Albumin/Globulin Ratio 1.2 (1-3); BUN/Creatinine Ratio 36.4 (8-20); C Reactive Protein 8.24 mg/L (<8.01); Calcium 10.6 mg/dL (8.6-10.3); EGFR African American 105.6 (>60); EGFR Non-African American 87.3 (>60); Globulin 3.2 g/dL (2-4); Potassium 3.7 mmol/L (3.5-5.0); Total Bilirubin 0.5 mg/dL (0.2-1.0); Total Protein 7.1 g/dL (6.4-8.9)
[2018-10-29 14:49] LABS: ABS Eosinophils 0.1 10^3/ul (0-0.6); ABS Lymphocytes 0.5 10^3/ul (1.0-4.8); ABS Monocytes 0.3 10^3/ul (0-0.8); ABS Neutrophils 2.7 10^3/ul (1.5-7.7); Eosinophil % 2.2 %; Hematocrit 35 % (35-47); Hemoglobin 11.8 g/dL (12.0-16.0); Lymphocyte % 13.2 %; Mean Corpuscular HGB Conc 33 g/dL (31-36); Mean Corpuscular Hemoglobin 29 pg (27-31); Mean Corpuscular Volume 86 fL (80-97); Mean Platelet Volume 8.1 fL (7.4-10.4); Nucleated Red Blood Cells % 0.1; Platelet Count 193 10^3/uL (150-450); Red Blood Count 4.12 10^6 /uL (3.70-4.87); Red Cell Distribution Width 14 % (10.5-15); White Blood Count 3.6 10^3/uL (3.5-10.8)
[2018-10-29 15:20] LABS: TSH (Thyroid Stimulating Horm) 0.66 mcIU/mL (0.34-5.60)
[2018-10-29 17:31] LABS: Urine Appearance Clear; Urine Bacteria Absent (Absent); Urine Bilirubin Negative (Negative); Urine Blood 1+ (Negative); Urine Color Yellow; Urine Glucose Negative (Negative); Urine Ketones Trace (Negative); Urine Nitrite Negative (Negative); Urine Protein Negative (Negative); Urine Red Blood Cell 1+(3-5/hpf) (Absent); Urine Specific Gravity 1.015 (1.010-1.030); Urine Urobilinogen Negative (Negative); Urine White Blood Cell Absent (Absent)
--- NOTE | 2018-10-29 18:50 | ED ---
Lower Extremity - HPI Summary HPI Summary: Patient complains of acute on chronic bilateral lower extremity edema, increased urinary frequency, clicking in left hip with rising to standing position and walking 2 weeks. Denies trauma, fever, cough, sore throat, CP, SOB, N/V/D, abdominal pain, change in BM. Medical history is DM, HTN, PAD, venous insufficiency. Currently taking Lasix 20 mg daily. - History of Current Complaint Chief Complaint: EDExtremityLower Stated Complaint: LEG STIFFNESS PER PT Time Seen by Provider: 10/29/18 15:17 Hx Obtained From: Patient Mechanism Of Injury: Unknown Severity Initially: Mild Severity Currently: Mild Pain Intensity: 3 Pain Scale Used: 0-10 Numeric Timing: Intermittent Character Of Pain: Aching Associated Signs And Symptoms: Positive: Swelling Aggravating Factor(s): Standing, Ambulation Alleviating Factor(s): Rest, Elevation Able to Bear Weight: Yes - Allergies/Home Medications Allergies/Adverse Reactions: Allergies Allergy/AdvReac Type Severity Reaction Status Date / Time hydrocodone Allergy Unknown Unknown Verified 08/10/17 12:55 Reaction Details PMH/Surg Hx/FS Hx/Imm Hx Endocrine/Hematology History: Denies: Hx Diabetes Cardiovascular History: Reports: Hx Congestive Heart Failure, Hx Hypertension, Other Cardiovascular Problems/Disorders - chf Denies: Hx Pacemaker/ICD Respiratory History: Reports: Hx Asthma History: Denies: Hx Dialysis Musculoskeletal History: Reports: Hx Osteoporosis, Other Musculoskeletal History - osteoporosis Sensory History: Denies: Hx Contacts or Glasses, Hx Hearing Aid Opthamlomology History: Denies: Hx Contacts or Glasses EENT History: Denies: Hx Deafness Neurological History: Denies: Hx Developmental Delay Comment Only: Hx Dementia - unsure Psychiatric History: Denies: Hx Panic Disorder - Cancer History Hx Chemotherapy: No Hx Radiation Therapy: No - Surgical History Surgery Procedure, Year, and Place: hyster skin graft left leg. hysterectomy Infectious Disease History: No Infectious Disease History: Reports: Hx of Known/Suspected MRSA - possible? patient is unsure Denies: Traveled Outside the [place] in Last 30 Days - Family History Family History: No FHx of breast CA - Social History Alcohol Use: Rare Hx Substance Use: No Substance Use Type: Reports: None Hx Tobacco Use: Yes Smoking Status (MU): Former Smoker Review of Systems Constitutional: Negative Eyes: Negative ENT: Negative Cardiovascular: Negative Respiratory: Negative Gastrointestinal: Negative Genitourinary: Negative Musculoskeletal: Other Skin: Negative Neurological: Negative Psychological: Normal All Other Systems Reviewed And Are Negative: Yes Physical Exam - Summary Physical Exam Summary: Venous insufficiency bilaterally. Swelling noted to bilateral lower extremities , nonpitting edema. PMS intact distally. Lung sounds clear to auscultation bilaterally. RRR. Abdomen soft nontender. Patient ambulatory with walker. No tenderness to palpation of left hip or thigh. Triage Information Reviewed: Yes Vital Signs On Initial Exam: Initial Vitals Temp Pulse Resp BP Pulse Ox 98.6 F 93 18 130/81 97 10/29/18 13:19 10/29/18 13:19 10/29/18 13:19 10/29/18 13:19 10/29/18 13:19 Vital Signs Reviewed: Yes Appearance: Positive: Well-Appearing Skin: Positive: Warm Head/Face: Positive: Normal Head/Face Inspection Eyes: Positive: Normal Neck: Positive: Supple Respiratory/Lung Sounds: Positive: Clear to Auscultation Cardiovascular: Positive: Normal Abdomen Description: Positive: Nontender Musculoskeletal: Positive: Normal Neurological: Positive: Normal Psychiatric: Positive: Normal AVPU Assessment: Alert - Sajan Coma Scale Best Eye Response: 4 - Spontaneous Best Motor Response: 6 - Obeys Commands Best Verbal Response: 5 - Oriented Coma Scale Total: 15 Diagnostics - Vital Signs Vital Signs Temp Pulse Resp BP Pulse Ox 10/29/18 13:19 98.6 F 93 18 130/81 97 - Laboratory Lab Results: Lab Results 10/29/18 10/29/18 10/29/18 Range/Units 14:19 14:19 14:19 WBC 3.6 (3.5-10.8) 10^3/uL RBC 4.12 (3.70-4.87) 10^6 /uL Hgb 11.8 L (12.0-16.0) g/dL Hct 35 (35-47) % MCV 86 (80-97) fL MCH 29 (27-31) pg MCHC 33 (31-36) g/dL RDW 14 (10.5-15) % Plt Count 193 (150-450) 10^3/uL MPV 8.1 (7.4-10.4) fL Neut % (Auto) 75.2 % Lymph % (Auto) 13.2 % [place] % (Auto) 8.6 % Eos % (Auto) 2.2 % Baso % (Auto) 0.8 % Absolute Neuts (auto) 2.7 (1.5-7.7) 10^3/ul Absolute Lymphs (auto) 0.5 L (1.0-4.8) 10^3/ul Absolute Monos (auto) 0.3 (0-0.8) 10^3/ul Absolute Eos (auto) 0.1 (0-0.6) 10^3/ul Absolute Basos (auto) 0.0 (0-0.2) 10^3/ul Absolute Nucleated RBC 0.0 10^3/ul Nucleated RBC % 0.1 Sodium 137 (135-145) mmol/L Potassium 3.7 (3.5-5.0) mmol/L Chloride 105 (101-111) mmol/L Carbon Dioxide 24 (22-32) mmol/L Anion Gap 8 (2-11) mmol/L BUN 24 (6-24) mg/dL Creatinine 0.66 (0.51-0.95) mg/dL Est GFR ( Amer) 105.6 (>60) Est GFR (Non-Af Amer) 87.3 (>60) BUN/Creatinine Ratio 36.4 H (8-20) Glucose 94 (70-100) mg/dL Lactic Acid 0.5 (0.5-2.0) mmol/L Calcium 10.6 H (8.6-10.3) mg/dL Total Bilirubin 0.50 (0.2-1.0) mg/dL AST 14 (13-39) U/L ALT 12 (7-52) U/L Alkaline Phosphatase 76 (34-104) U/L Troponin I 0.00 (<0.04) ng/mL C-Reactive Protein 8.24 H (<8.01) mg/L B-Natriuretic Peptide (<=100) pg/mL Total Protein 7.1 (6.4-8.9) g/dL Albumin 3.9 (3.2-5.2) g/dL Globulin 3.2 (2-4) g/dL Albumin/Globulin Ratio 1.2 (1-3) TSH 0.66 (0.34-5.60) mcIU/mL Urine Color Urine Appearance Urine pH (5-9) Ur Specific [place] (1.010-1.030) Urine Protein (Negative) Urine Ketones (Negative) Urine Blood (Negative) Urine Nitrate (Negative) Urine Bilirubin (Negative) Urine Urobilinogen (Negative) Ur Leukocyte Esterase (Negative) Urine WBC (Auto) (Absent) Urine RBC (Auto) (Absent) Urine Bacteria (Absent) Urine Glucose (Negative) 10/29/18 10/29/18 Range/Units 14:19 17:10 WBC (3.5-10.8) 10^3/uL RBC (3.70-4.87) 10^6 /uL Hgb (12.0-16.0) g/dL Hct (35-47) % MCV (80-97) fL MCH (27-31) pg MCHC (31-36) g/dL RDW (10.5-15) % Plt Count (150-450) 10^3/uL MPV (7.4-10.4) fL Neut % (Auto) % Lymph % (Auto) % [place] % (Auto) % Eos % (Auto) % Baso % (Auto) % Absolute Neuts (auto) (1.5-7.7) 10^3/ul Absolute Lymphs (auto) (1.0-4.8) 10^3/ul Absolute Monos (auto) (0-0.8) 10^3/ul Absolute Eos (auto) (0-0.6) 10^3/ul Absolute Basos (auto) (0-0.2) 10^3/ul Absolute Nucleated RBC 10^3/ul Nucleated RBC % Sodium (135-145) mmol/L Potassium (3.5-5.0) mmol/L Chloride (101-111) mmol/L Carbon Dioxide (22-32) mmol/L Anion Gap (2-11) mmol/L BUN (6-24) mg/dL Creatinine (0.51-0.95) mg/dL Est GFR ( Amer) (>60) Est GFR (Non-Af Amer) (>60) BUN/Creatinine Ratio (8-20) Glucose (70-100) mg/dL Lactic Acid (0.5-2.0) mmol/L Calcium (8.6-10.3) mg/dL Total Bilirubin (0.2-1.0) mg/dL AST (13-39) U/L ALT (7-52) U/L Alkaline Phosphatase (34-104) U/L Troponin I (<0.04) ng/mL C-Reactive Protein (<8.01) mg/L B-Natriuretic Peptide 52 (<=100) pg/mL Total Protein (6.4-8.9) g/dL Albumin (3.2-5.2) g/dL Globulin (2-4) g/dL Albumin/Globulin Ratio (1-3) TSH (0.34-5.60) mcIU/mL Urine Color Yellow Urine Appearance Clear Urine pH 7.0 (5-9) Ur Specific [place] 1.015 (1.010-1.030) Urine Protein Negative (Negative) Urine Ketones Trace A (Negative) Urine Blood 1+ A (Negative) Urine Nitrate Negative (Negative) Urine Bilirubin Negative (Negative) Urine Urobilinogen Negative (Negative) Ur Leukocyte Esterase Negative (Negative) Urine WBC (Auto) Absent (Absent) Urine RBC (Auto) 1+(3-5/hpf) A (Absent) Urine Bacteria Absent (Absent) Urine Glucose Negative (Negative) Result Diagrams: 10/29/18 14:19 10/29/18 14:19 Lab Statement: Any lab studies that have been ordered have been reviewed, and results considered in the medical decision making process. Lower Extremity Course/Dx - Course Course Of Treatment: Patient complains of acute on chronic bilateral lower extremity edema, increased urinary frequency, clicking in left hip with rising to standing position and walking 2 weeks. Denies trauma, fever, cough, sore throat, CP, SOB, N/V/D, abdominal pain, change in BM. Medical history is DM, HTN, PAD, venous insufficiency. Currently taking Lasix 20 mg daily. Physical exam:Venous insufficiency bilaterally. Swelling noted to bilateral lower extremities, nonpitting edema. PMS intact distally. Lung sounds clear to auscultation bilaterally. RRR. Abdomen soft nontender. Patient ambulatory with walker. No tenderness to palpation of left hip or thigh. Vital signs within normal limits. Bleeding/creatinine ratio 36.4. CRP 8.21. BNP 52. Urine negative. Abdomen was unremarkable. X-ray left hip positive for arthritis. Patient ambulatory. Follow-up with primary care. - Diagnoses Provider Diagnoses: Edema of lower leg due to peripheral venous insufficiency, Arthritis of left hip Discharge - Sign-Out/Discharge Documenting (check all that apply): Patient Departure Patient Received Moderate/Deep Sedation with Procedure: No - Discharge Plan Condition: Stable Disposition: HOME Patient Education Materials: Leg Edema (ED), Arthritis (ED) Referrals: Marii Swain MD [Primary Care Provider] - Additional Instructions: Follow-up with your primary care doctor tomorrow morning regarding swelling in bilateral legs. Return to the ED for any new or worsening symptoms. - Billing Disposition and Condition Condition: STABLE Disposition: Home
[2018-10-29 21:55] VITALS: BP 141/70
== END 2018-10-29 21:53 | disposition home or self-care (01) ==
LOC: ED 13:16
DX: R60.0 Localized edema (principal); I87.2 Venous insufficiency (chronic) (peripheral); M16.12 Unilateral primary osteoarthritis, left hip; R35.0 Frequency of micturition; E11.9 Type 2 diabetes mellitus without complications; Z88.5 Allergy status to narcotic agent; Z87.891 Personal history of nicotine dependence
CPT/HCPCS: 36415; 80053; 81003; 81015; 83605; 83880; 84443; 84484; 85025; 86140; 99284

== ENCOUNTER 2018-12-22 17:30 | Observation (INO) | payer MEDICARE ==
[2018-12-22] MEDS ORDERED: NS 0.9% 1000 ML** 1,000 ML IV.FLUID IV ONE (18:21)
[2018-12-22 19:53] LABS: ABS Eosinophils 0.1 10^3/ul (0-0.6); ABS Lymphocytes 0.4 10^3/ul (1.0-4.8); ABS Monocytes 0.3 10^3/ul (0-0.8); ABS Neutrophils 3.5 10^3/ul (1.5-7.7); Eosinophil % 2.1 %; Hematocrit 36 % (35-47); Hemoglobin 12.1 g/dL (12.0-16.0); Lymphocyte % 9.4 %; Mean Corpuscular HGB Conc 34 g/dL (31-36); Mean Corpuscular Hemoglobin 29 pg (27-31); Mean Corpuscular Volume 85 fL (80-97); Mean Platelet Volume 8.2 fL (7.4-10.4); Platelet Count 201 10^3/uL (150-450); Red Blood Count 4.25 10^6 /uL (3.70-4.87); Red Cell Distribution Width 14 % (10-15); White Blood Count 4.3 10^3/uL (3.5-10.8)
--- NOTE | 2018-12-22 20:00 | ED ---
Lower Extremity - HPI Summary HPI Summary: The patient is a 73 y/o F arriving by ambulance to [facility] with a chief complaint of gradual onset BLE pain starting a few months ago with recent worsening today 12/22/18. She reports that she has noticed changes in the BLE, with difficulty lifting the left leg, and increased pain and erythema in the right lower leg, especially at the sole of the foot, causing pain with ambulation. She states that she thinks the wounds are healing, but she hasn't seen her PCP Dr. Swain, or been to the wound clinic. The pain is currently rated 7/10 in severity. She denies CP and SOB. Hx of CHF, HTN, asthma, osteoporosis, MRSA. No hx of DM. Surgical hx of skin graft on LLE. Former smoker, rare EtOH, no substance use. Lives with daughter. Per EMS, living conditions are filthy and pt has been sitting in her own excrement for a few days. Vital signs while in room: HR 95 bpm, BP 146/74, O2 87%. Home Medications Medication Instructions Recorded Confirmed Type Acetaminophen [Acetaminophen Extra 500 mg PO BID 08/12/18 12/22/18 History Strength] Cholecalciferol (Vitamin D3) 125 mcg PO DAILY 08/12/18 12/22/18 History [Vitamin D3] Fluticasone-Salmeterol 500-50* 1 puff INH BID 08/12/18 12/22/18 History [Advair Diskus 500-50*] Metolazone TAB* [Zaroxolyn TAB*] 2.5 mg PO MOWEFR 08/12/18 12/22/18 History [place]-3 Fatty Acids (Nf) [Fish Oil 1,000 mg PO DAILY 08/12/18 12/22/18 History (NF)] Potassium Chlor TAB* [Potassium 20 meq PO TID 08/12/18 12/22/18 History Chlor TAB 20 MEQ*] oxyCODONE/Acetamin 5/325 MG* 1 tab PO Q4H PRN 08/12/18 12/22/18 History [Percocet 5/325 TAB*] Carvedilol TAB* [Coreg TAB*] 6.25 mg PO BID #0 08/29/18 12/22/18 Rx Furosemide TAB* [Lasix TAB*] 20 mg PO DAILY #0 08/29/18 12/22/18 Rx - History of Current Complaint Chief Complaint: EDExtremityLower Stated Complaint: R FOOT PAIN PER EMS Time Seen by Provider: 12/22/18 17:56 Hx Obtained From: Patient Mechanism Of Injury: Unknown Onset of Pain: Prior to Arrival - Months [employer] with recent worsening especially today Onset/Duration: Still Present Severity Initially: Moderate Severity Currently: Moderate Pain Intensity: 7 Pain Scale Used: 0-10 Numeric Timing: Constant, Lasting Weeks - Lasting months Location: Is Discrete @ - Lower extremities, particulary in the LLE with difficulty lifting, and worse pain the RLE Associated Signs And Symptoms: Positive: Redness - bilateral feet, Other - POSITIVE: difficulty moving RLE, worse pain in RLE; NEGATIVE: CP, SOB Aggravating Factor(s): Ambulation, Movement Alleviating Factor(s): Nothing - Allergies/Home Medications Allergies/Adverse Reactions: Allergies Allergy/AdvReac Type Severity Reaction Status Date / Time hydrocodone Allergy Unknown Unknown Verified 08/10/17 12:55 Reaction Details PMH/Surg Hx/FS Hx/Imm Hx Endocrine/Hematology History: Denies: Hx Diabetes Cardiovascular History: Reports: Hx Congestive Heart Failure, Hx Hypertension, Other Cardiovascular Problems/Disorders - chf Denies: Hx Pacemaker/ICD Respiratory History: Reports: Hx Asthma History: Denies: Hx Dialysis Musculoskeletal History: Reports: Hx Osteoporosis, Other Musculoskeletal History - osteoporosis Sensory History: Denies: Hx Contacts or Glasses, Hx Deafness, Hx Hearing Aid Opthamlomology History: Denies: Hx Contacts or Glasses Neurological History: Denies: Hx Developmental Delay Comment Only: Hx Dementia - unsure Psychiatric History: Denies: Hx Panic Disorder - Cancer History Hx Chemotherapy: No Hx Radiation Therapy: No - Surgical History Surgery Procedure, Year, and Place: hyster skin graft left leg. hysterectomy Infectious Disease History: No Infectious Disease History: Reports: Hx of Known/Suspected MRSA - possible? patient is unsure Denies: Traveled Outside the [place] in Last 30 Days - Family History Family History: No FHx of breast CA - Social History Alcohol Use: Rare Hx Substance Use: No Substance Use Type: Reports: None Hx Tobacco Use: Yes Smoking Status (MU): Former Smoker Review of Systems Negative: Chest Pain Negative: Shortness Of Breath Positive: Other - pain in the BLE with difficulty lifting legs (especially left ) but able to move legs Positive: Other - broken skin and erythema on the bilateral feet worse on right All Other Systems Reviewed And Are Negative: Yes Physical Exam - Summary Physical Exam Summary: Appearance: Ill-appearing, moderate pain distress, obese, strong stench or urine and feces and infection in the room Skin: Warm, color reflects adequate perfusion, dry, erythema on lower extremities bilaterally, weeping wounds across dorsum of right foot from toes to the mid foot, redness is worse on the left leg up to the knee, brawny changes and scarring on bilateral lower extremities Head: Normal Head/Face inspection, atraumatic Eyes: Conjunctiva clear ENT: Normal inspection Neck: Supple, no nodes, no JVD Respiratory: Lungs clear, normal breath sounds, no respiratory distress Cardio: RRR, No murmur, pulses normal, brisk capillary refill Abdomen: Soft, nontender Bowel sounds: Present Musculoskeletal: Strength Intact/limited ROM bilaterally due to pain and obesity , no calf tenderness, bilateral edema, and skin as per above. Psychological: Normal Neuro: Alert, muscle tone normal, no focal deficit noted but limited ROM due to obesity Triage Information Reviewed: Yes Vital Signs On Initial Exam: Initial Vitals Temp Pulse Resp BP Pulse Ox 97.6 F 99 18 116/76 94 12/22/18 17:39 12/22/18 17:39 12/22/18 17:39 12/22/18 17:39 12/22/18 17:39 Vital Signs Reviewed: Yes Diagnostics - Vital Signs Vital Signs Temp Pulse Resp BP Pulse Ox 12/22/18 17:39 97.6 F 99 18 116/76 94 - Laboratory Lab Results: Lab Results 12/22/18 Range/Units 19:44 WBC 4.3 (3.5-10.8) 10^3/uL RBC 4.25 (3.70-4.87) 10^6 /uL Hgb 12.1 (12.0-16.0) g/dL Hct 36 (35-47) % MCV 85 (80-97) fL MCH 29 (27-31) pg MCHC 34 (31-36) g/dL RDW 14 (10-15) % Plt Count 201 (150-450) 10^3/uL MPV 8.2 (7.4-10.4) fL Neut % (Auto) 81.3 % Lymph % (Auto) 9.4 % M[place]ulloch % (Auto) 6.7 % Eos % (Auto) 2.1 % Baso % (Auto) 0.5 % Absolute Neuts (auto) 3.5 (1.5-7.7) 10^3/ul Absolute Lymphs (auto) 0.4 L (1.0-4.8) 10^3/ul Absolute Monos (auto) 0.3 (0-0.8) 10^3/ul Absolute Eos (auto) 0.1 (0-0.6) 10^3/ul Absolute Basos (auto) 0.0 (0-0.2) 10^3/ul Absolute Nucleated RBC 0.0 10^3/ul Nucleated RBC % 0.0 ESR Pending Result Diagrams: 12/22/18 19:44 12/22/18 19:44 Lab Statement: Any lab studies that have been ordered have been reviewed, and results considered in the medical decision making process. - Radiology right foot xray Radiology Interpretation Completed By: ED Physician, Radiologist Summary of Radiographic Findings: Degenerative disease. preliminary reading by ED MD. CXR Radiology Interpretation Completed By: Radiologist Summary of Radiographic Findings: No acute disease. ED physician has reviewed this report. Re-Evaluation - Re-Evaluation First Eval Re-Evaluation Time: 22:05 Change: Unchanged Comment: I discussed results with the patient as well as plan for admission. Lower Extremity Course/Dx - Course Course Of Treatment: Patient's medications reviewed. Nurses' notes reviewed. Allergies reveiwed. The patient is a 73 y/o F arriving by ambulance to [facility] with a chief complaint of gradual onset BLE pain starting a few months ago with recent worsening today 12/22/2018, with erythema on the lower BLE at feet and ankles, worse pain the sole of right foot, and difficulty lifting the left leg. She denies CP and SOB. Hx of CHF, HTN, asthma, osteoporosis, MRSA. No hx of DM. Surgical hx of skin graft on LLE. Upon physical exam, the patient exhibits erythema on lower extremities bilaterally, weeping wounds across dorsum of right foot from toes to the mid foot worse on the left leg up to the knee, brawny changes and scarring on bilateral lower extremity, clear lungs. Blood work reveals normal wbc count,abs lymphs of 0.4, ESR of 46, APTT of 25.1, AST of 12, CRP of 17.36. First lactic acid of 0.5. Repeat lactic acid of 1.2. R foot is negative for MRSA. CXR reveals no acute disease. R Foot XR reveals degenerative disease, pending official reading of foot and CXR. In the ED course , the patient was administered Ns and Vibramycin. At 2200, I spoke with Dr. Gaona, hospitalist, and she accepts the patient for admission. Patient agrees with this plan. She is diagnosed with ulcer on foot, and PAD. Differential dx include cellulitis, infection, and osteomyelitis. - Diagnoses Differential Diagnosis/HQI/PQRI: Positive: Cellulitis, Infection, Osteomyelitis Provider Diagnoses: Foot ulcer, right, PAD (peripheral artery disease), Cellulitis - Physician Notifications Discussed Care Of Patient With: Darlyn Gaona - hospitalist Time Discussed With Above Provider: 22:00 Instructed by Provider To: Other - I discussed the patient's case with Dr. Gaona. She accepts the patient for admission. Discharge - Sign-Out/Discharge Documenting (check all that apply): Patient Departure - Patient is accepted for admission by Dr. Gaona. Patient Received Moderate/Deep Sedation with Procedure: No - Discharge Plan Condition: Stable Disposition: ADMITTED TO [facility] - Billing Disposition and Condition Condition: STABLE Disposition: Admitted to [facility] - Attestation Statements Document Initiated by Scribe: Yes Documenting Scribe: Domitila Villafana Provider For Whom Riddhi is Documenting (Include Credential): Dr. Shanda Muhammad MD Scribe Attestation: Domitila Das, scribed for Dr. Shanda Muhammad MD on 12/23/18 at 0133. Status of Scribe Document: Viewed
[2018-12-22 20:02] LABS: Activated Partial Thrombo Time 25.1 seconds (26.0-38.0); INR 1.03 (0.82-1.09)
[2018-12-22 20:15] LABS: Albumin 3.5 g/dL (3.2-5.2); Albumin/Globulin Ratio 1.1 (1-3); C Reactive Protein 17.36 mg/L (<8.01); Calcium 10.2 mg/dL (8.6-10.3); EGFR African American 107.5 (>60); EGFR Non-African American 88.9 (>60); Globulin 3.3 g/dL (2-4); Total Bilirubin 0.6 mg/dL (0.2-1.0); Total Protein 6.8 g/dL (6.4-8.9)
[2018-12-22 21:16] LABS: Erythrocyte Sed Rate 46 mm/Hr (0-29)
[2018-12-22] MEDS ORDERED: Ondansetron INJ* 2 MG/ML VIAL IV PRN (22:39)
[2018-12-23] MEDS: Enoxaparin(*) 40 MG/0.4 ML SYR SUBCUT SCH ×2 (00:20→23:22)
[2018-12-23] MEDS: Cefepime 1 GM in Dextrose(*) 1 GM/50 ML BAG IV SCH ×3 (00:56→23:22)
--- NOTE | 2018-12-23 02:03 | HP ---
CC: Dr. Marii Swain * HISTORY AND PHYSICAL: DATE OF ADMISSION: 12/22/18 PRIMARY CARE PHYSICIAN: Dr. Marii Swain. ATTENDING PHYSICIAN: Dr. Darlyn Gaona.* (DICTATED BY CRISTIANA THOMAS) CHIEF COMPLAINT: Right foot wound. HISTORY OF PRESENT ILLNESS: Ms. Mulligan is a 73-year-old female with past medical history significant for peripheral arterial disease; chronic venous stasis wounds of the bilateral lower extremities, status post multiple skin grafts; cognitive impairment; DVT, unclear if it is provoked, who was previously admitted to this institution in August 2018. The patient was admitted for an extended period of time with concerns about her foot ulcer. The patient at that time underwent a 10-day course of doxycycline with some improvement in her leg ulcer and eventually was deemed at that time unable to make her own medical decisions. The patient was discharged home to the care of her daughter, though there were concerns at that time for daughter being unable to care for her due to her own physical and mental limitations. The patient has one regular followup with her primary care provider in September of 2018 and then appears to have been lost to follow up. The patient is demented and has cognitive impairment, is unable to provide a meaningful history. She does state that her foot hurts, but now feels better and is unable to provide information about her living situation, her medications, or any other pertinent past medical information. She is very grateful for the care that is being provided. The patient states that she can no longer walk. She is unable to provide why this is. She does not state that she is short of breath with walking or weak. She does state that it does not work anymore. The patient denies fevers, chills , nausea, vomiting, abdominal pain, chest pain, shortness of breath, diarrhea. The patient does not think she has been on antibiotics recently. The patient thinks it is Sunday, does not know what year it is, does not know last time she saw her primary care doctor. Due to concern for right lower extremity wound, possible infection, and unable to care for herself at home we were asked to evaluate the patient for admission to the hospital. PAST MEDICAL HISTORY: Peripheral arterial disease; hypertension; chronic right foot ulcer; bilateral lower extremity venous stasis ulcers, status post multiple skin grafts; cognitive impairment; asthma; osteoporosis; history of DVT in 2005, treated with Coumadin, now off Coumadin; hypertension; possible heart failure, preserved ejection fraction; venous insufficiency; cervical cancer. PAST SURGICAL HISTORY: Total abdominal hysterectomy in 1975, skin grafting to the left lower extremity x2. MEDICATIONS: Per the patient's most recent primary care note, the patient is unable to corroborate these medications: 1. Advair Diskus 500/50 one puff inhalation b.i.d. 2. Tylenol 500 mg p.o. b.i.d. 3. Fish oil 1000 mg p.o. daily. 4. Potassium chloride 20 mEq p.o. t.i.d. 5. Percocet 5/325 one tab p.o. q.4 hours as needed. 6. Metolazone 2.5 mg p.o. Sunday, Sunday, and Sunday. 7. Vitamin D 125 mcg p.o. daily. 8. Carvedilol 6.25 mg p.o. b.i.d. 9. Furosemide 10 mg p.o. daily. ALLERGIES: HYDROCODONE. FAMILY HISTORY: Per previous history and physical, the patient's mother related to cancer and the patient's father's cause is unknown. The patient is unable to elaborate on this at this time. The patient has reports in her medical record that she is a previous smoker. She denies any alcohol or use of illicit drugs. The patient lives with her daughter, who is unable to be reached at this time. The patient's daughter, Daniel, is her surrogate decision maker. REVIEW OF SYSTEMS: Unobtainable. PHYSICAL EXAMINATION GENERAL: The patient is a 73-year-old female, who appears stated age, sitting comfortably in bed, in no acute distress. VITAL SIGNS: At the time of evaluation, temperature of 97.6, pulse rate 83, respiratory rate 17, oxygen saturation 99% on room air, blood pressure 135/80. HEENT: Normocephalic and atraumatic. Sclerae anicteric. No conjunctival injection. Nasal mucosa moist. Oral mucosa moist. No pharyngeal erythema, discharge, or exudate. NECK: Supple, nontender. No lymphadenopathy. No carotid bruit auscultated. No JVD. RESPIRATORY: Clear to auscultation bilaterally. No wheezes, rales, or rhonchi. Good air exchange bilaterally. CARDIAC: Regular rate and rhythm. No clicks, murmurs, gallops, or rubs. Pulse is 2+ in the dorsalis pedis, posterior tibial, and radialis. 1+ pitting edema in bilateral lower extremities. Chronic venous stasis changes. ABDOMEN: Soft and nontender. Bowel sounds present and normoactive in all 4 quadrants. No hepatosplenomegaly. No abdominal bruits auscultated. No hepatojugular reflux. NEURO: Cranial nerves II through XII intact. No focal deficits. The patient has extremely limited mobility possibly due to contractures or just the patient being uncooperative with exam. PSYCHIATRIC: Pleasant and cooperative. SKIN: Ulcer of the right dorsum of the foot with scabs and erythema, improved from previous exam by this author. DIAGNOSTIC STUDIES/LAB DATA: White blood cell count of 4.3, hemoglobin 12.1, platelet count 201. ESR 46. INR 1.03, aPTT 25.1. Sodium 140, potassium 4.0, chloride 109, carbon dioxide 24, anion gap 8, BUN 13, creatinine 0.65, glucose 83, lactic acid 0.5, calcium 10.2. Bilirubin 0.6, AST 12, ALT 10, alkaline phosphatase 76. Creatine kinase 71. Troponin I 0.00. CRP is 17.36. BNP 73. Protein 6.8, albumin 3.5, globulin 3.3. Studies: Foot x-ray is unremarkable to this author's interpretation. Chest x-ray also unremarkable. ASSESSMENT AND PLAN: Impression: Ms. Mulligan is a 73-year-old female with past medical history significant for peripheral arterial disease, right lower extremity wound, venous insufficiency, and cognitive impairment, who presents to the emergency department with concerns for worsening in her right lower extremity wound with worsening pain and redness. The patient at that time was found to have poor self-care and there are concerns about her unsafe living conditions. 1. Right lower extremity wound. The patient has a chronic right lower extremity wound, which appears to be improved from previous exam by this author in August. However, the patient does have an elevated CRP. A wound culture obtained in the ED shows it is negative for methicillin-resistant Staphylococcus aureus, positive for Staphylococcus aureus and the patient does have a history of pseudomonas in her wound. The patient's again CRP and ESR are elevated. The patient will have wound care consult. The patient will be started on cefepime until her wound culture comes back. She does have gram- positive cocci and gram-negative bacilli in the wound. The patient did not show signs of systemic infection including fevers, tachycardia, or hypotension. The patient is not septic. The patient did have wound cultures obtained. Wound care consult will be obtained as well. 2. Unsafe living conditions. The patient has been living with her daughter. There were concerns on her previous discharge for her daughter's ability to care for her. Later on her followup, the patient was found in a state of being disheveled and that is when she presented to the hospital. The patient will have Physical Therapy and Occupational Therapy consult. She states she can no longer walk. The patient's daughter was unable to be contacted and will be contacted in the morning. The patient may need rehab and long-term placement to improve her functional status. 3. Venous insufficiency. The patient has not been taking her meds for several days per her documentation. The patient will be started on furosemide and metolazone. Her fluid status will be watched closely. It is likely that her worsening edema is impairing her ability to heal her wounds. The patient had previous MONA, which was somewhat decreased but does have some palpable pulses in her bilateral lower extremities. At some point, the patient may benefit from repeat MONA and possible consultation for revascularization. 4. Hypertension. Continue the patient's carvedilol, lasix and metolazone. 5. Asthma. Continue the patient's fluticasone/formoterol. The patient is not in current exacerbation. 6. Mild cognitive impairment. The patient previously lacked medical decision making capacity; this is likely still the case. This should be evaluated on an ongoing basis. 7. DVT prophylaxis. The patient will have Lovenox subcu. The patient does have a history of deep venous thrombosis. It is unclear if it is provoked. 8. FEN. The patient will have a heart-healthy diet without caffeine. TIME SPENT: Approximately 60 minutes was spent on admission of this patient, 30 of which was spent [id number] with the patient obtaining history and physical and discussing treatment plan. The plan was discussed with my attending , Dr. Darlyn Gaona, and she is in agreement. CRISTIANA THOMAS [id number]/[facility] #: [id number] [facility]
[2018-12-23] MEDS: oxyCODONE/Acetamin 5/325 MG* TAB PO PRN ×3 (02:42→21:41)
[2018-12-23 07:17] LABS: ABS Eosinophils 0.1 10^3/ul (0-0.6); ABS Lymphocytes 0.4 10^3/ul (1.0-4.8); ABS Monocytes 0.2 10^3/ul (0-0.8); ABS Neutrophils 2.1 10^3/ul (1.5-7.7); Hematocrit 34 % (35-47); Hemoglobin 11.3 g/dL (12.0-16.0); Lymphocyte % 13.1 %; Mean Corpuscular HGB Conc 34 g/dL (31-36); Mean Corpuscular Hemoglobin 29 pg (27-31); Mean Corpuscular Volume 86 fL (80-97); Mean Platelet Volume 7.8 fL (7.4-10.4); Nucleated Red Blood Cells % 0.1; Platelet Count 186 10^3/uL (150-450); Red Blood Count 3.94 10^6 /uL (3.70-4.87); Red Cell Distribution Width 14 % (10-15); White Blood Count 2.8 10^3/uL (3.5-10.8)
[2018-12-23 07:48] LABS: BUN/Creatinine Ratio 18.2 (8-20); Calcium 9.2 mg/dL (8.6-10.3); EGFR African American 130.4 (>60); EGFR Non-African American 107.8 (>60); Magnesium 1.7 mg/dL (1.9-2.7); Potassium 3.5 mmol/L (3.5-5.0)
[2018-12-23] MEDS: Mometasone/Formoter 200/5 MDI INH SCH ×2 (08:23→23:37)
[2018-12-23] MEDS: Cholecalciferol TAB* 1000 UNITS PO SCH (08:23)
[2018-12-23] MEDS: Metolazone TAB* 5 MG PO SCH (08:23)
[2018-12-23] MEDS: Furosemide TAB* 20 MG PO SCH (08:23)
[2018-12-23] MEDS: Carvedilol TAB* 6.25 MG PO SCH ×2 (08:23→21:41)
[2018-12-23] MEDS: Potassium Chlor TAB* 20 MEQ TAB.ER PO SCH ×3 (08:23→21:41)
[2018-12-23] MEDS ORDERED: Magnesium Sulfate 2 GM IV* 2 GM/50 ML BAG IVPB ONE (08:55)
[2018-12-23] MEDS ORDERED: DOXYcycline CAP(*) 100 MG PO SCH (09:00)
[2018-12-23] MEDS ORDERED: CHOLECALCIFEROL 125 MCG PO SCH (09:00)
[2018-12-23] MEDS: CMC:OMEGA-3 FATTY ACIDS (NF) 1,000 MG CAP PO SCH (09:15)
[2018-12-23] MEDS ORDERED: Cyclobenzaprine TAB* 10 MG PO PRN (14:50)
--- NOTE | 2018-12-23 19:04 | PN ---
Subjective Date of Service: 12/23/18 Interval History: Patient is feeling well today. Patient is unable to walk and now states that has been going on for "A Month." Patient states the pain in her leg is improved. Patient denies F/C, N/V, abdominal pain, diarrhea, CP, SOB, or other pain. Family History: Unchanged from Admission Social History: Unchanged from Admission Past Medical History: Unchanged from Admission Objective Active Medications: Acetaminophen (Tylenol Tab*) 650 mg PO Q6H PRN PRN Reason: FEVER/PAIN Carvedilol (Coreg Tab*) 6.25 mg PO BID [facility] Last Admin: 12/23/18 08:23 Dose: 6.25 mg Cholecalciferol (Vitamin D Tab*) 1,000 units PO DAILY [facility] Last Admin: 12/23/18 08:23 Dose: 1,000 units Cyclobenzaprine HCl (Flexeril Tab*) 10 mg PO BID PRN PRN Reason: SPASMS Enoxaparin Sodium (Lovenox(*)) 40 mg SUBCUT Q24H [facility] Last Admin: 12/23/18 00:20 Dose: 40 mg Fish Oil (Fish Oil (Nf)) 1,000 mg PO DAILY [facility]; Protocol Last Admin: 12/23/18 09:15 Dose: Not Given Furosemide (Lasix Tab*) 20 mg PO DAILY [facility] Last Admin: 12/23/18 08:23 Dose: 20 mg Cefepime HCl (Maxipime 1 Gm In Dextrose Duplex (*)) 1 gm in 50 mls @ 100 mls/ hr IV Q12H [facility] Last Admin: 12/23/18 11:32 Dose: 100 mls/hr Metolazone (Zaroxolyn Tab*) 2.5 mg PO MoWeFr@0900 [facility] Last Admin: 12/23/18 08:23 Dose: 2.5 mg Mometasone Furoate/Formoterol Fumar (Dulera 200/5 Mdi*) 2 puff INH BID [facility] Last Admin: 12/23/18 08:23 Dose: 2 puff Ondansetron HCl (Zofran Inj*) 4 mg IV Q6H PRN PRN Reason: NAUSEA Oxycodone/Acetaminophen (Percocet 5/325 Tab*) 1 tab PO Q4H PRN PRN Reason: PAIN Last Admin: 12/23/18 08:23 Dose: 1 tab Potassium Chloride (Klor Con Er Tab*) 20 meq PO TID LYN Last Admin: 12/23/18 14:46 Dose: 20 meq Vital Signs - 8 hr 12/23/18 12/23/18 12/23/18 12:46 12:53 15:26 Temperature 95.5 F 96.3 F Pulse Rate 72 68 Respiratory 16 20 Rate Blood Pressure 90/48 102/58 (mmHg) O2 Sat by Pulse 92 98 Oximetry Oxygen Devices in Use Now: None Appearance: Patient is a 73yo female who appears stated age and is sitting in the bed in NAD. Eyes: No Scleral Icterus, PERRLA Ears/Nose/Mouth/Throat: NL Teeth, Lips, Gums, Clear Oropharnyx, Mucous Membranes Moist Neck: NL Appearance and Movements; NL JVP, Trachea Midline Respiratory: Symmetrical Chest Expansion and Respiratory Effort, Clear to Auscultation Cardiovascular: NL Sounds; No Murmurs; No JVD, RRR, - - 2+ B/L LE edema with Brawny changes. Abdominal: NL Sounds; No Tenderness; No Distention, No Hepatosplenomegaly Lymphatic: No Cervical Adenopathy Extremities: No Clubbing, Cyanosis Skin: No Nodules or Sclerosis, - - Dorsum of right foot with scabbing and redness. Neurological: NL Sensation, NL Muscle Strength and Tone, - - Alert and Oriented x1. Result Diagrams: 12/23/18 06:58 12/23/18 06:58 Additional Lab and Data: Lab Results Microbiology and Other Data: Microbiology 12/22/18 20:56 Skin and Soft Tissue MRSA/MSSA (PCR - Final Foot Right Mrsa Negative S.aureus Positive Gram Stain - Final Assess/Plan/Problems-Billing Assessment: Patient is a 73yo female with a PMH for Chronic LE wounds, LE Edema, and dementia. Patient is admitted for concern for infection on the dorsum of her right foot and inability to walk. - Patient Problems (1) Foot ulcer, right Current Visit: No Status: Acute Code(s): L97.519 - NON-PRS CHRONIC ULCER OTH PRT RIGHT FOOT W UNSP SEVERITY SNOMED Code(s): 65977256 Comment: - Previous History of MRSA, Negative for MRSA now, continue Cefepime - Previous history of Pseudomonas - Wound care consult pending. - Blood Cx pending - CRP elevated from previous test. - Elevate legs. - Wound Culture pending, showed GPC and GNR. (2) Cognitive change Current Visit: No Status: Acute Code(s): R41.89 - OTH SYMPTOMS AND SIGNS W COGNITIVE FUNCTIONS AND AWARENESS SNOMED Code(s): 391038908 Comment: - Psychiatric eval showed that the patient lacks capacity to make medical decisions such as refusing to be placed in August - Patient still lacks capacity. (3) HTN (hypertension) Current Visit: No Status: Acute Code(s): I10 - ESSENTIAL (PRIMARY) HYPERTENSION SNOMED Code(s): 89540350 Comment: - Continue carvedilol to 6.25 mg bid and continue furosemide 20 mg daily with metolazone - Normotensive. (4) PAD (peripheral artery disease) Current Visit: No Status: Acute Code(s): I73.9 - PERIPHERAL VASCULAR DISEASE , UNSPECIFIED SNOMED Code(s): 634851278 Comment: -ABIs WNL, no claudication -No need for revascularization at this time (5) DVT prophylaxis Current Visit: No Status: Acute Code(s): SAK8477 - SNOMED Code(s): 372644023 Comment: -Heparin SubQ Q12H (6) Full code status Current Visit: No Status: Acute Code(s): Z78.9 - OTHER SPECIFIED HEALTH STATUS SNOMED Code(s): 325700074 Status and Disposition: Patient will need DAMEON, Patient lacks medical decision making capacity. Daughter has consented to DAMEON.
[2018-12-24] MEDS: CMC:OMEGA-3 FATTY ACIDS (NF) 1,000 MG CAP PO SCH (07:53)
[2018-12-24] MEDS: Furosemide TAB* 20 MG PO SCH (07:54)
[2018-12-24] MEDS: Carvedilol TAB* 6.25 MG PO SCH ×2 (07:54→21:49)
[2018-12-24] MEDS: Cholecalciferol TAB* 1000 UNITS PO SCH (07:54)
[2018-12-24] MEDS: Potassium Chlor TAB* 20 MEQ TAB.ER PO SCH ×3 (07:54→21:49)
[2018-12-24] MEDS: oxyCODONE/Acetamin 5/325 MG* TAB PO PRN (07:54)
[2018-12-24] MEDS: Mometasone/Formoter 200/5 MDI INH SCH (07:55)
[2018-12-24 09:55] LABS: ABS Eosinophils 0.1 10^3/ul (0-0.6); ABS Lymphocytes 0.4 10^3/ul (1.0-4.8); ABS Monocytes 0.2 10^3/ul (0-0.8); ABS Neutrophils 2.4 10^3/ul (1.5-7.7); Eosinophil % 3.5 %; Hematocrit 37 % (35-47); Hemoglobin 12.3 g/dL (12.0-16.0); Lymphocyte % 12.2 %; Mean Corpuscular HGB Conc 33 g/dL (31-36); Mean Corpuscular Hemoglobin 28 pg (27-31); Mean Corpuscular Volume 86 fL (80-97); Mean Platelet Volume 8.1 fL (7.4-10.4); Platelet Count 202 10^3/uL (150-450); Red Blood Count 4.33 10^6 /uL (3.70-4.87); Red Cell Distribution Width 15 % (10-15); White Blood Count 3.1 10^3/uL (3.5-10.8)
[2018-12-24 10:12] LABS: Calcium 9.6 mg/dL (8.6-10.3); EGFR African American 117.9 (>60); EGFR Non-African American 97.5 (>60); Potassium 4.1 mmol/L (3.5-5.0)
[2018-12-24 11:32] LABS: C Reactive Protein 31.46 mg/L (<8.01)
[2018-12-24] MEDS: Acetaminophen TAB* 325 MG PO PRN (12:26)
[2018-12-24] MEDS: Cefepime 1 GM in Dextrose(*) 1 GM/50 ML BAG IV SCH ×2 (12:27→23:22)
--- NOTE | 2018-12-24 14:49 | DS ---
CC: Dr. Marii Swain * DISCHARGE SUMMARY: DATE OF ADMISSION: 12/22/18 DATE OF DISCHARGE: 12/25/2018 PRIMARY CARE PROVIDER: Dr. Marii Swain. MY ATTENDING WHILE IN THE HOSPITAL: Dr. Noy Comer.* (DICTATED BY CRISTIANA THOMAS) PRIMARY DISCHARGE DIAGNOSES: 1. Right lower extremity cellulitis. 2. Physical deconditioning. SECONDARY DISCHARGE DIAGNOSES: 1. Peripheral arterial disease. 2. Hypertension. 3. Bilateral lower extremity venous stasis ulcers, status post multiple skin grafts. 4. Cognitive impairments. 5. Mild intermittent asthma. 6. Osteoporosis. 7. History of provoked deep venous thrombosis. 8. Hypertension. 9. Cervical cancer. 10. Status post abdominal hysterectomy. STUDIES DONE WHILE IN THE HOSPITAL: 1. Chest x-ray from 12/22/18 read as no evidence for acute findings. 2. Foot x-ray from 12/22/18 shows soft tissue swelling, no specific evidence for osteomyelitis. Thus, for osteomyelitis, consider MRI scan without contrast or a 3- phase bone scan. MEDICATIONS AT DISCHARGE: 1. Advair Diskus 500/50 one inhalation b.i.d. 2. Enid-3 fatty acids 1000 mg p.o. daily. 3. Potassium chloride 20 mEq p.o. t.i.d. 4. Percocet 5/325 one tab p.o. q.4 hours as needed. 5. Metolazone 2.5 mg p.o. Sunday, Sunday, Sunday. 6. Carvedilol 6.25 mg p.o. b.i.d. 7. Furosemide 20 mg p.o. daily. 8. Tylenol 650 mg p.o. q.6 hours as needed. 9. Augmentin 875 mg p.o. b.i.d. x14 doses. 10. Vitamin D 1000 units p.o. daily. 11. Cyclobenzaprine 10 mg p.o. b.i.d. as needed for spasms. New medications at discharge: 1. Augmentin. 2. Vitamin D. 3. Cyclobenzaprine. Medications discontinued at discharge: None. HOSPITAL COURSE: This is a brief summary of the patient's presentation. For more details, please see history and physical from this author on 12/22/18. In brief, the patient is a 73- year-old female with past medical history significant as above, who presented to the emergency department with worsening pain in her right lower extremity with redness and swelling. The patient had previously been admitted to this institution in August 2018 for which she had prolonged hospital course also related to this right lower extremity wound, at which time she was deemed not to have confidence to make medical decisions, taken home by her daughter for care. The patient at that time received a 10- day course of doxycycline with significant improvement in her right lower extremity wound. The patient was sent home. The patient had one documented follow up with her primary care provider after that, but then was lost to follow up. On discussion with the patient's daughter, the patient had been doing relatively well at home, but had slowly been decreasing her functional capacity, using 2 canes, significantly hunched over. When she arrived in the emergency department, she was covered in stool and urine and it was relayed to the ED nurse that she had not been able to stand up in several days. The patient was cleaned up in the emergency department. The patient had an x-ray of foot, which was read as above. The patient had slightly elevated CRP greater than when she was here previously. The patient was admitted to the hospital. The patient was started on cefepime due to concern for previous Pseudomonas wound infection. The patient previously also had MRSA in her wound , but her PCR was MRSA negative. The patient improved on the cefepime greatly. The patient was seen in consultation by physical therapy who believed she had rehabable needs. The patient was again deemed do not have medical decision- making capacity and the patient's daughter was agreeable to rehab. The patient had a bed offered from [facility] on 12/24/18, which was accepted by her daughter. The patient on the day of discharge was stable, amenable for discharge with improved pain in her bilateral lower extremities and improved redness in her right lower extremity. PHYSICAL EXAM AT THE TIME OF DISCHARGE: General: The patient is a 73-year-old female who appears her stated age and sitting comfortably in bed, in no acute distress. Vital Signs: Temperature 96.8, pulse rate 78, respiratory rate 14, oxygen saturation 98% on room air, blood pressure 125/65. HEENT: Head normocephalic, atraumatic. Sclerae anicteric. No conjunctival injection. Nasal mucosa moist. Oral mucosa moist. No pharyngeal erythema, discharge, or exudate. Neck: Supple, nontender. No lymphadenopathy. No carotid bruits. No JVD. Cardiac: Regular rate and rhythm. No clicks, murmurs, gallops, or rubs. Pulses 1+ in the bilateral dorsalis pedis, posterior tibialis, and radial areas. Chronic skin changes consistent with venous stasis in the bilateral lower extremities. Respiratory: Clear to auscultation bilaterally. No wheezes , rales, or rhonchi. Good air exchange bilaterally. Abdomen: Soft, nontender, nondistended. Bowel sounds present, normoactive in all 4 quadrants. No hepatosplenomegaly. No abdominal bruits auscultated. Genitourinary: No suprapubic tenderness or CVA tenderness. Skin: Bilateral brawny changes with multiple areas of skin grafting on the lower extremities, crusting and slight erythema in the dorsum of the right foot, improved from admission. Neuro: Cranial nerves II through XII grossly intact. No focal deficits. Alert and oriented to self. DISCHARGE PLAN: The patient will be discharged to [facility] for PT and OT with the initial goal of restoring functional capacity to the degree where she can return home. The patient's daughter is in agreement with this plan. The patient should have her wound cleansed with soap and water daily and kept dry. The patient should have ongoing follow up with wound care physician at the facility and should be referred to Wound Clinic if not appropriate. The patient received 3 doses of cefepime and will continue with 7 more days of Augmentin. The patient's culture and sensitivities are not back yet. These should be followed up with the facility physician and antibiotic changes should be made as necessary, though the patient is improving. The patient had no leukocytosis. No vital sign abnormalities. No issues with her electrolytes or kidney function. The patient will be continued on her diuretic regimen, which seems to be controlling relatively well her lower extremity edema which has also improved during hospitalization. The patient is slightly leukopenic, this has been going on since at least 2010. This should be followed up with Oncology if deemed appropriate. The patient should have a heart-healthy diet, caffeine okay. Engage in activities as tolerated. TIME SPENT: Approximately 60 minutes was spent on this discharge, 30 of which spent [id number] with the patient obtaining history and physical and discussing the treatment plan. CRISTIANA THOMAS [id number]/[facility] #: [id number] DANYELLE
--- NOTE | 2018-12-24 17:43 | CONSULT ---
Subjective Date of Service: 12/24/18 Interval History: Ms. Mulligan is a 73yo female with a PMH for PAD, Chronic Venous Stasis Ulcer, and HTN who is admitted for a non-healing venous stasis wound of the RLE and concern for cellulitis of the right leg. She is awaiting placement. Ms. Mulligan was previously following with the [facility] for [facility] but was discharged from there in June 2018. She states that she has not been using a dressing on the right foot but washes the foot with soap and water and applies lotion as needed. Patient seen and examined at bedside. Family History: Unchanged from Admission Social History: Unchanged from Admission Past Medical History: Unchanged from Admission Review of Systems - Measurements Intake and Output: Intake and Output Last 24 Hours 12/22/18 12/23/18 12/24/18 12/25/18 06:59 06:59 06:59 06:59 Intake Total 530 620 470 Output Total 600 1000 575 Balance -70 -380 -105 Weight 190 lb Intake: IVPB 50 ABX - CEFEPIME 50 Oral 480 620 470 Output: Urine 600 1000 575 Other: Estimated Void Medium Medium Large # Bowel Movements 0 # Voids 1 1 - Review of Systems Constitutional Symptoms: Negative: Fever, Other - Chills Dermatology: Positive: Other - Chronic wound to right foot Objective Active Medications: Acetaminophen (Tylenol Tab*) 650 mg PO Q6H PRN Reason: FEVER/PAIN Carvedilol (Coreg Tab*) 6.25 mg PO BID LYN Cholecalciferol (Vitamin D Tab*) 1,000 units PO DAILY LYN Cyclobenzaprine HCl (Flexeril Tab*) 10 mg PO BID PRN Reason: SPASMS Enoxaparin Sodium (Lovenox(*)) 40 mg SUBCUT Q24H LYN Fish Oil (Fish Oil (Nf)) 1,000 mg PO DAILY LYN; Protocol Furosemide (Lasix Tab*) 20 mg PO DAILY LYN Cefepime HCl (Maxipime 1 Gm In Dextrose Duplex (*)) 1 gm in 50 mls @ 100 mls/ hr IV Q12H LYN Metolazone (Zaroxolyn Tab*) 2.5 mg PO MoWeFr@0900 LYN Mometasone Furoate/Formoterol Fumar (Dulera 200/5 Mdi*) 2 puff INH BID LYN Ondansetron HCl (Zofran Inj*) 4 mg IV Q6H PRN Reason: NAUSEA Oxycodone/Acetaminophen (Percocet 5/325 Tab*) 1 tab PO Q4H PRN Reason: PAIN Potassium Chloride (Klor Con Er Tab*) 20 meq PO TID [facility] Vital Signs - 8 hr 12/24/18 12/24/18 12/24/18 11:00 11:55 16:12 Temperature 96.4 F 96.6 F Pulse Rate 58 63 Respiratory 16 14 16 Rate Blood Pressure 100/55 98/62 (mmHg) O2 Sat by Pulse 98 97 Oximetry Oxygen Devices in Use Now: None Appearance: NAD, sitting up in a chair Ears/Nose/Mouth/Throat: Mucous Membranes Moist Respiratory: Symmetrical Chest Expansion and Respiratory Effort Extremities: - - 1+ DP on the right Skin: - - See skin note below Neurological: Alert and Oriented x 3 Nutrition: Taking PO's Result Diagrams: 12/24/18 09:17 12/24/18 09:17 Microbiology and Other Data: Microbiology 12/22/18 20:56 Skin and Soft Tissue MRSA/MSSA (PCR - Final Foot Right Mrsa Negative S.aureus Positive Gram Stain - Final Wound Culture - Preliminary Corynebacterium Striatum 12/22/18 19:44 Aerobic Blood Culture - Preliminary Blood Venous No Growth Day 1 Anaerobic Blood Culture - Preliminary No Growth Day 1 12/22/18 19:44 Aerobic Blood Culture - Preliminary Blood Venous No Growth Day 1 Anaerobic Blood Culture - Preliminary No Growth Day 1 Diagnostic Imagin. Exam Date: 08/16/1852 - MRI LOWER EXTREMITY RIGHT W/O IMPRESSION: No evidence of bone marrow replacement to suggest osteomyelitis. Diffuse subcutaneous emphysema edema is noted. 2. Exam Date: 10/12/17 - VL ANK/BRACHIAL INDICES FINDINGS: Right: The posterior tibial ankle brachial index is 0.82. The dorsalis pedis ankle brachial index is 0.89. The posterior tibial waveform is biphasic. The dorsalis pedis waveform is biphasic. Left: The posterior tibial ankle brachial index is 0.94. The dorsalis pedis ankle brachial index is 0.92. The digital brachial index is 0.67 The posterior tibial waveform is biphasic. The dorsalis pedis waveform is biphasic. IMPRESSION: DECREASED ANKLE-BRACHIAL INDICES WITH DAMPENING OF THE DISTAL WAVEFORMS CONSISTENT WITH MODERATE PERIPHERAL ARTERIAL DISEASE. Skin Deviation Note - Skin Deviation Findings Right foot - Assessment/Plan: Ms. Mulligan is a 73yo female with a PMH for PAD, Chronic Venous Stasis Ulcer, and HTN who is admitted for a non-healing venous stasis wound of the RLE and concern for cellulitis of the right leg. She is awaiting placement. 1. Right foot venous stasis ulcer. No signs of infection at this time. Continue to leave wound open to air. Wash the foot with soap and water and apply lotion to the skin. Recommend placing dry gauze between toes if there is any drainage to prevent breakdown or the digits from sticking together. Overall the area of crusting has improved since her previous admission in August 2018. Could consider repeat ABIs or referal to vascular surgery/Interventional radiology at discharge. 2. Peripheral arterial disease. 3. Diet. Heart Healthy. 4. Code Status. Full code status. 5. Disposition. Disposition per primary medicine team. TIME SPENT: Time spent for this wound consultation was 20 minutes and 10 minutes was spent with the patient assessing, measuring, and photographing the wound. Wound Problem/Plan Is Patient a Wound Clinic Patient: No - Has followed with the [facility] in the past Attending: Miryam Dobbs
--- NOTE | 2018-12-24 18:56 | PN ---
Subjective Date of Service: 12/24/18 Interval History: Patient is feeling well. Patient denies any pain. Patient denies F/C, N/V, abdominal pain, diarrhea, CP, SOB, or other pain. Patient is very interested in [facility] [place]. Family History: Unchanged from Admission Social History: Unchanged from Admission Past Medical History: Unchanged from Admission Objective Active Medications: Acetaminophen (Tylenol Tab*) 650 mg PO Q6H PRN PRN Reason: FEVER/PAIN Last Admin: 12/24/18 12:26 Dose: 650 mg Carvedilol (Coreg Tab*) 6.25 mg PO BID [facility] Last Admin: 12/24/18 07:54 Dose: 6.25 mg Cholecalciferol (Vitamin D Tab*) 1,000 units PO DAILY [facility] Last Admin: 12/24/18 07:54 Dose: 1,000 units Cyclobenzaprine HCl (Flexeril Tab*) 10 mg PO BID PRN PRN Reason: SPASMS Enoxaparin Sodium (Lovenox(*)) 40 mg SUBCUT Q24H [facility] Last Admin: 12/23/18 23:22 Dose: 40 mg Fish Oil (Fish Oil (Nf)) 1,000 mg PO DAILY [facility]; Protocol Last Admin: 12/24/18 07:53 Dose: 1,000 mg Furosemide (Lasix Tab*) 20 mg PO DAILY [facility] Last Admin: 12/24/18 07:54 Dose: 20 mg Cefepime HCl (Maxipime 1 Gm In Dextrose Duplex (*)) 1 gm in 50 mls @ 100 mls/ hr IV Q12H [facility] Last Admin: 12/24/18 12:27 Dose: 100 mls/hr Metolazone (Zaroxolyn Tab*) 2.5 mg PO MoWeFr@0900 [facility] Last Admin: 12/23/18 08:23 Dose: 2.5 mg Mometasone Furoate/Formoterol Fumar (Dulera 200/5 Mdi*) 2 puff INH BID [facility] Last Admin: 12/24/18 07:55 Dose: 2 puff Ondansetron HCl (Zofran Inj*) 4 mg IV Q6H PRN PRN Reason: NAUSEA Oxycodone/Acetaminophen (Percocet 5/325 Tab*) 1 tab PO Q4H PRN PRN Reason: PAIN Last Admin: 12/24/18 07:54 Dose: 1 tab Potassium Chloride (Klor Con Er Tab*) 20 meq PO TID LYN Last Admin: 12/24/18 12:27 Dose: 20 meq Vital Signs - 8 hr 12/24/18 12/24/18 12/24/18 11:00 11:55 16:12 Temperature 96.4 F 96.6 F Pulse Rate 58 63 Respiratory 16 14 16 Rate Blood Pressure 100/55 98/62 (mmHg) O2 Sat by Pulse 98 97 Oximetry Oxygen Devices in Use Now: None Appearance: Patient is a 73yo female who appears stated age and is sitting in the bed in NAD. Eyes: No Scleral Icterus, PERRLA Ears/Nose/Mouth/Throat: NL Teeth, Lips, Gums, Clear Oropharnyx, Mucous Membranes Moist Neck: NL Appearance and Movements; NL JVP, Trachea Midline Respiratory: Symmetrical Chest Expansion and Respiratory Effort, Clear to Auscultation Cardiovascular: NL Sounds; No Murmurs; No JVD, RRR, No Edema Abdominal: NL Sounds; No Tenderness; No Distention, No Hepatosplenomegaly Lymphatic: No Cervical Adenopathy Extremities: No Clubbing, Cyanosis, - - 1+ Pitting edema, Brawny changes. Slight erythema on dorsum of right foot. Skin: No Nodules or Sclerosis Neurological: Alert and Oriented x 3, NL Sensation, NL Muscle Strength and Tone , - - CN II-XII intact. Result Diagrams: 12/24/18 09:17 12/24/18 09:17 Additional Lab and Data: Lab Results Microbiology and Other Data: Microbiology 12/22/18 20:56 Skin and Soft Tissue MRSA/MSSA (PCR - Final Foot Right Mrsa Negative S.aureus Positive Gram Stain - Final Wound Culture - Preliminary Corynebacterium Striatum 12/22/18 19:44 Aerobic Blood Culture - Preliminary Blood Venous No Growth Day 1 Anaerobic Blood Culture - Preliminary No Growth Day 1 12/22/18 19:44 Aerobic Blood Culture - Preliminary Blood Venous No Growth Day 1 Anaerobic Blood Culture - Preliminary No Growth Day 1 Diagnostic Imagin. Exam Date: 08/16/18951 - MRI LOWER EXTREMITY RIGHT W/O IMPRESSION: No evidence of bone marrow replacement to suggest osteomyelitis. Diffuse subcutaneous emphysema edema is noted. 2. Exam Date: 10/12/17 - VL ANK/BRACHIAL INDICES FINDINGS: Right: The posterior tibial ankle brachial index is 0.82. The dorsalis pedis ankle brachial index is 0.89. The posterior tibial waveform is biphasic. The dorsalis pedis waveform is biphasic. Left: The posterior tibial ankle brachial index is 0.94. The dorsalis pedis ankle brachial index is 0.92. The digital brachial index is 0.67 The posterior tibial waveform is biphasic. The dorsalis pedis waveform is biphasic. IMPRESSION: DECREASED ANKLE-BRACHIAL INDICES WITH DAMPENING OF THE DISTAL WAVEFORMS CONSISTENT WITH MODERATE PERIPHERAL ARTERIAL DISEASE. Assess/Plan/Problems-Billing Assessment: Patient is a 73yo female with a PMH for Chronic LE wounds, LE Edema, and dementia. Patient is admitted for concern for infection on the dorsum of her right foot and inability to walk. - Patient Problems (1) Foot ulcer, right Current Visit: No Status: Acute Code(s): L97.519 - NON-PRS CHRONIC ULCER OTH PRT RIGHT FOOT W UNSP SEVERITY SNOMED Code(s): 55153408 Comment: - Previous History of MRSA, Negative for MRSA now, Change to Augmentin. - Wound care consult pending appreciated. - Blood Cx pending - CRP elevated from previous test. - Elevate legs. - Wound Culture pending, showed GPC and GNR. (2) Cognitive change Current Visit: No Status: Acute Code(s): R41.89 - OTH SYMPTOMS AND SIGNS W COGNITIVE FUNCTIONS AND AWARENESS SNOMED Code(s): 893714237 Comment: - Psychiatric eval showed that the patient lacks capacity to make medical decisions such as refusing to be placed in August - Patient still lacks capacity. (3) HTN (hypertension) Current Visit: No Status: Acute Code(s): I10 - ESSENTIAL (PRIMARY) HYPERTENSION SNOMED Code(s): 14315108 Comment: - Continue carvedilol to 6.25 mg bid and continue furosemide 20 mg daily with metolazone - Normotensive. (4) PAD (peripheral artery disease) Current Visit: No Status: Acute Code(s): I73.9 - PERIPHERAL VASCULAR DISEASE , UNSPECIFIED SNOMED Code(s): 025263035 Comment: -ABIs WNL, no claudication -No need for revascularization at this time - Consider repeat evaluation if worsening at later date. (5) DVT prophylaxis Current Visit: No Status: Acute Code(s): FIU3975 - SNOMED Code(s): 416631928 Comment: -Heparin SubQ Q12H (6) Full code status Current Visit: No Status: Acute Code(s): Z78.9 - OTHER SPECIFIED HEALTH STATUS SNOMED Code(s): 904015069 Status and Disposition: Patient will need [facility], Patient lacks medical decision making capacity. Daughter has consented to [facility], Discharge until tomorrow.
[2018-12-24] MEDS: Enoxaparin(*) 40 MG/0.4 ML SYR SUBCUT SCH (23:22)
[2018-12-25] MEDS: Mometasone/Formoter 200/5 MDI INH SCH ×2 (00:03→07:15)
[2018-12-25] MEDS: Metolazone TAB* 5 MG PO SCH (09:58)
[2018-12-25] MEDS: CMC:OMEGA-3 FATTY ACIDS (NF) 1,000 MG CAP PO SCH (09:58)
[2018-12-25] MEDS: Acetaminophen TAB* 325 MG PO PRN (10:02)
[2018-12-25] MEDS: Potassium Chlor TAB* 20 MEQ TAB.ER PO SCH ×2 (10:03→14:17)
[2018-12-25] MEDS: Cholecalciferol TAB* 1000 UNITS PO SCH (10:03)
[2018-12-25] MEDS: Furosemide TAB* 20 MG PO SCH (10:03)
[2018-12-25] MEDS: Carvedilol TAB* 6.25 MG PO SCH (10:03)
[2018-12-25 11:10] VITALS: BP 125/65
[2018-12-25] MEDS: Cefepime 1 GM in Dextrose(*) 1 GM/50 ML BAG IV SCH (11:34)
== END 2018-12-25 14:37 | disposition home or self-care (01) ==
LOC: ED 17:30 → SSU 23:13
PROVIDERS: ADMIT Internal Medicine; ATTEND Hospitalist
DX: L03.115 Cellulitis of right lower limb (principal); R53.81 Other malaise; I73.9 Peripheral vascular disease, unspecified; L97.519 Non-pressure chronic ulcer of other part of right foot with unspecified severity; I10 Essential (primary) hypertension; I87.2 Venous insufficiency (chronic) (peripheral); J45.909 Unspecified asthma, uncomplicated; Z86.718 Personal history of other venous thrombosis and embolism; C76.0 Malignant neoplasm of head, face and neck; Z90.710 Acquired absence of both cervix and uterus; Z79.899 Other long term (current) drug therapy; R41.89 Other symptoms and signs involving cognitive functions and awareness; Z94.5 Skin transplant status; M81.0 Age-related osteoporosis without current pathological fracture; Z87.891 Personal history of nicotine dependence
CPT/HCPCS: 36415; 71045; 80048; 80053; 82550; 83605; 83735; 83880; 84484; 85025; 85610; 85652; 85730; 86140; 87040; 87070; 87077; 87205; 87640; 87641; 94640; 96372; 96374; 96376; 99284; A9270-GY; G0378; G8978-GP-CL; G8979-GP-CI; G8987-GO-CM; G8988-GO-CJ; J0692; J1650; J3475

== ENCOUNTER 2019-05-02 13:10 | Inpatient (IN) | payer MEDICARE ==
[2019-05-02] MEDS ORDERED: cefTRIAXone(*) 1 GM in NS 0.9% 50 ML* 50 ML IVPB ONE (13:26)
--- NOTE | 2019-05-02 13:27 | ED ---
Lower Extremity - HPI Summary HPI Summary: The patient is a 74 y/o F arriving by ambulance to [facility] from [facility] with a chief complaint of gradual worsening of swelling and erythema of a chronic ulceration on the right lower extremity with initial onset approximately three weeks ago. [facility] nursing staff are concerned for infection with possible need for antibiotics since the patient has not taken any medications for the ulcer yet. She endorses chills but denies any fevers, chest pain, or shortness of breath. Currently, her pain is rated 9/10 in severity. Touch aggravates the pain. She notes that there is also increased swelling in the right knee. She uses a wheelchair at the nursing facility. PMHx: CHF, HTN, osteoporosis, peripheral vascular disease. Former smoker, no EtOH, no substance use. Medications reviewed. Allergies noted. - History of Current Complaint Stated Complaint: CELLULITES PER EMS Time Seen by Provider: 05/02/19 13:17 Hx Obtained From: Patient Mechanism Of Injury: Other - chronic unlcer Onset of Pain: Days Onset/Duration: Still Present - initial three weeks ago with gradual worsening Severity Initially: Moderate Severity Currently: Severe Pain Intensity: 9 Pain Scale Used: 0-10 Numeric Timing: Lasting Days Location: Is Discrete @ - anterior aspect of lower right leg Character Of Pain: Aching Associated Signs And Symptoms: Positive: Swelling, Redness, Other - chills, right knee swelling; Negative: shortness of breath, chest pain. Negative: Fever Aggravating Factor(s): Other - touch Alleviating Factor(s): Nothing - Allergies/Home Medications Allergies/Adverse Reactions: Allergies Allergy/AdvReac Type Severity Reaction Status Date / Time hydrocodone Allergy Unknown Unknown Verified 05/02/19 13:24 Reaction Details Home Medications: Home Medications Acetaminophen TAB* [Tylenol TAB*] 500 mg PO BID PRN 05/02/19 [History Confirmed 05/02/19] Furosemide TAB* [Lasix TAB*] 40 mg PO DAILY 05/02/19 [History Confirmed 05/02/19 ] Olopatadine 0.1% OPHTH (NF) [Patanol 0.1% OPHTH (NF)] 1 drop BOTH EYES BID 05/02 [History Confirmed 05/02/19] PMH/Surg Hx/FS Hx/Imm Hx Endocrine/Hematology History: Denies: Hx Diabetes Cardiovascular History: Reports: Hx Congestive Heart Failure, Hx Hypertension, Hx Peripheral Vascular Disease, Other Cardiovascular Problems/Disorders - chf Denies: Hx Pacemaker/ICD Respiratory History: Reports: Hx Asthma History: Denies: Hx Dialysis Musculoskeletal History: Reports: Hx Osteoporosis, Other Musculoskeletal History - peripheral vascular disease Sensory History: Denies: Hx Contacts or Glasses, Hx Deafness, Hx Hearing Aid Opthamlomology History: Denies: Hx Contacts or Glasses Neurological History: Denies: Hx Developmental Delay Comment Only: Hx Dementia - unsure Psychiatric History: Denies: Hx Panic Disorder - Cancer History Hx Chemotherapy: No Hx Radiation Therapy: No - Surgical History Surgical History: Yes Surgery Procedure, Year, and Place: skin graft [place],. [place], Hx Anesthesia Reactions: No Infectious Disease History: Reports: Hx of Known/Suspected MRSA - possible? patient is unsure - Family History Known Family History: Negative: Diabetes Family History: No FHx of breast CA - Social History Alcohol Use: None Hx Substance Use: No Substance Use Type: Reports: None Hx Tobacco Use: Yes Smoking Status (MU): Former Smoker Type: Cigarettes Have You Smoked in the Last Year: No Review of Systems Positive: Chills. Negative: Fever Negative: Chest Pain Negative: Shortness Of Breath Positive: Other - swelling in right knee Positive: Other - swelling in the right lower extremity near chronic ulcer that is erythematous All Other Systems Reviewed And Are Negative: Yes Physical Exam - Summary Physical Exam Summary: VITAL SIGNS: Reviewed. GENERAL: Patient is a well-developed and nourished elderly female who is lying comfortable in the stretcher. Patient is not in any acute respiratory distress. HEAD AND FACE: No signs of trauma. No ecchymosis, hematomas or skull depressions. No sinus tenderness. EYES: PERRLA, EOMI x 2, No injected conjunctiva, no nystagmus. EARS: Hearing grossly intact. Ear canals and tympanic membranes are within normal limits. MOUTH: Oropharynx within normal limits. NECK: Supple, trachea is midline, no adenopathy, no JVD, no carotid bruit, no c- spine tenderness, neck with full ROM. CHEST: Symmetric, no tenderness at palpation. LUNGS: Clear to auscultation bilaterally. No wheezing or crackles. CVS: Regular rate and rhythm, S1 and S2 present, no murmurs or gallops appreciated. ABDOMEN: Soft, non-tender. No signs of distention. No rebound, no guarding, and no masses palpated. Bowel sounds are normal. EXTREMITIES: FROM in all major joints, no edema, no cyanosis or clubbing. NEURO: Alert and oriented x 3. No acute neurological deficits. Speech is normal and follows commands. SKIN: Dry and warm. Chronic ulcer on the right leg that is red, warm, swollen, and tender. Triage Information Reviewed: Yes Vital Signs Reviewed: Yes Procedures - Sedation Patient Received Moderate/Deep Sedation with Procedure: No Diagnostics - Laboratory Result Diagrams: 05/02/19 13:54 05/02/19 13:55 Lab Statement: Any lab studies that have been ordered have been reviewed, and results considered in the medical decision making process. - Ultrasound DVT US Ultrasound Interpretation Completed By: Radiologist Summary of Ultrasound Findings: Impression: 1. Positive femoral-popliteal DVT in the left leg, partially occlusive at the common femoral vein and completely occlusive more inferiorly in the femoral vein. 2. Nonocclusive thrombus at the distal right femoral vein. (The requisition notes "brawny pigmentation" of the patient's lower legs there appears to be a history of superficial vein insufficiency. Contrast-enhanced CT of the abdomen and pelvis (and upper thighs ) could be obtained to determine if there is central. abdominopelvic venous compression/occlusion.) Lower Extremity Course/Dx - Course Assessment/Plan: This patient is a 74-year-old female who presents to the emergency department with a chief complaint of having bilateral extremity edema , swelling, redness, and pain. Blood work without any significant abnormality except for hemoglobin of 11.9, uric acid of 7.8, calcium of 10.8, and CRP of 33. Cultures of the right lower extremity is MRSA positive. Bilateral lower extremity ultrasound impression: 1. Positive femoral popliteal DVT in the left leg and partially occlusive the common femoral vein and completely occlusive more inferiorly in the femoral vein. 2. Nonocclusive thrombosis in the distal right femoral pain. In the ED course, the patient was given IV fluids, vancomycin, and Lovenox to treat the MRSA infection and the DVT. I discussed my physical exam and test results with Dr. Mace from the hospitalist services , and he agrees to admit the patient to his services. The patient is hemodynamically stable alert and oriented x 3. - Diagnoses Differential Diagnosis/HQI/PQRI: Positive: Bursitis, Cellulitis, DVT, Infection Provider Diagnoses: Cellulitis, DVT (deep venous thrombosis), MRSA (methicillin resistant staph aureus) culture positive - Physician Notifications Discussed Care Of Patient With: Elio Mace - hospitalist Time Discussed With Above Provider: 17:43 Instructed by Provider To: Admit As Observation - I discussed the patient's case with Dr. Mace, who accepts the patient for admission. Discharge ED - Sign-Out/Discharge Documenting (check all that apply): Patient Departure - Patient accepted for admission by Dr. Mace. - Discharge Plan Condition: Stable Disposition: ADMITTED TO [facility] - Billing Disposition and Condition Condition: STABLE Disposition: Admitted to [facility] - Attestation Statements Document Initiated by Riddhi: Yes Documenting Scribe: Domitila Villafana Provider For Whom Riddhi is Documenting (Include Credential): Dr. Myles Brewer MD Scribe Attestation: Domitila Das scribed for Dr. Myles Brewer MD on 05/03/19 at 1150. Scribe Documentation Reviewed: Yes Provider Attestation: The documentation as recorded by the Domitila chauhan accurately reflects the service I personally performed and the decisions made by me, Dr. Myles Brewer MD Status of Scribe Document: Viewed
[2019-05-02 14:05] LABS: ABS Eosinophils 0.1 10^3/ul (0-0.6); ABS Lymphocytes 0.5 10^3/ul (1.0-4.8); ABS Monocytes 0.3 10^3/ul (0-0.8); ABS Neutrophils 2.4 10^3/ul (1.5-7.7); Eosinophil % 3.5 %; Hematocrit 36 % (35-47); Hemoglobin 11.9 g/dL (12.0-16.0); Lymphocyte % 14.5 %; Mean Corpuscular HGB Conc 33 g/dL (31-36); Mean Corpuscular Hemoglobin 28 pg (27-31); Mean Corpuscular Volume 83 fL (80-97); Mean Platelet Volume 8.2 fL (7.4-10.4); Nucleated Red Blood Cells % 0.2; Platelet Count 189 10^3/uL (150-450); Red Blood Count 4.33 10^6 /uL (3.70-4.87); Red Cell Distribution Width 15 % (10-15); White Blood Count 3.3 10^3/uL (3.5-10.8)
[2019-05-02 14:24] LABS: Uric Acid 7.8 mg/dL (2.3-6.6)
[2019-05-02 16:10] LABS: Erythrocyte Sed Rate 43 mm/Hr (0-29)
[2019-05-02 16:49] LABS: Albumin 3.5 g/dL (3.2-5.2); BUN/Creatinine Ratio 36.7 (8-20); Calcium 10.8 mg/dL (8.6-10.3); EGFR African American 117.6 (>60); EGFR Non-African American 97.2 (>60); Globulin 3.6 g/dL (2-4); Potassium 3.7 mmol/L (3.5-5.0); Total Bilirubin 0.3 mg/dL (0.2-1.0); Total Protein 7.1 g/dL (6.4-8.9)
[2019-05-02] MEDS ORDERED: Vancomycin(*) 1,000 MG in NS 0.9% 250 ML* 250 ML IV ONE (17:36)
[2019-05-02] MEDS ORDERED: Enoxaparin(*) 100 MG/ML SYR SUBCUT ONE (17:42)
[2019-05-02] MEDS ORDERED: Vancomycin per Pharmacy* NOTE FOLLOW UP SCH (19:00)
--- NOTE | 2019-05-02 20:35 | HP ---
CC: Dr. Swain * [facility] MEDICINE HISTORY AND PHYSICAL: DATE OF ADMISSION: 05/02/19 PRIMARY CARE PHYSICIAN: Dr. Swain. ATTENDING PHYSICIAN: Dr. Elio Mace * (dictation provided by Adelita Arreguin NP). CHIEF COMPLAINT: Bilateral lower extremity swelling and ulceration to the right leg. HISTORY OF PRESENT ILLNESS: Ms. Mulligan is a 74-year-old female with a past medical history of peripheral arterial disease, hypertension, chronic lower extremity ulcers, chronic lower extremity edema, status post multiple skin grafts, cognitive impairment, history of DVT in 2005 and question of diastolic congestive heart failure, who presents to the hospital today with concern for bilateral lower extremity swelling with ulceration. Ms. Mulligan offers some details, but she is not a trustworthy historian tonight. She states that her legs suddenly became swollen. She states that they are both very heavy. There is pain in both legs. She is not aware that there is an ulceration on the right lower extremity. She states that she has never had a DVT before, though this is noted in her medical record. She states that she has never had significant ulcerations to her legs before, although this is confirmed in the medical record. She states that other than the swelling in her legs, she is feeling well. She has no chest pain, no shortness of breath. No nausea, vomiting, diarrhea, abdominal pain and is feeling well. She states that her legs were examined at the [facility] and there was concern about the way they appeared and therefore she was sent here to the ED for evaluation. In the emergency room, Ms. Mulligan had a left lower extremity Doppler, which showed a DVT. She had a swab of a large right calf ulcer done, which showed positive MRSA. Her labs show a leukopenia which is chronic with WBC 3.3 and ESR is 43. Her CRP is 33.00. Her lactic acid is 1.4. Vitals are stable. PAST MEDICAL HISTORY: 1. Peripheral arterial disease with chronic lower extremity edema and venous stasis ulcers, status post multiple skin grafts. 2. Cognitive impairment. 3. Asthma. 4. Osteoporosis. 5. History of DVT in 2005, not currently on Coumadin. 6. Hypertension. 7. Possible heart failure with preserved ejection fraction. 8. History of cervical cancer. PAST SURGICAL HISTORY: 1. Total abdominal hysterectomy in 1975. 2. Skin grafting to the left lower extremity x2. MEDICATIONS: 1. [place]-3 fatty acids 1000 mg p.o. daily. 2. Tylenol 500 mg p.o. b.i.d. p.r.n. 3. Potassium chloride 20 mEq p.o. t.i.d. 4. Metolazone 2.5 mg p.o. Sunday, Sunday, Sunday. 5. Cholecalciferol 1000 units p.o. daily. 6. Olopatadine 1 drop both eyes b.i.d. 7. Fluticasone/salmeterol 500/50 one puff inhaled b.i.d. 8. Furosemide 40 mg p.o. daily. 9. Carvedilol 6.25 mg p.o. b.i.d. ALLERGIES: To HYDROCODONE. FAMILY HISTORY: Per electronic medical record, the patient's mother related to cancer and the patient's father's cause of is unknown. The patient is not able to provide further information. SOCIAL HISTORY: Per the report, the patient was a previous smoker. There is no report of alcohol or drug use. The patient lives at [facility]. The patient states that her sister is the healthcare proxy, but on the previous record in December, it was her daughter, Daniel. The last healthcare proxy record on the form was from 2012 and lists her sister. I attempted to reach out to her tonight and was unable to reach her. REVIEW OF SYSTEMS: A 14-point review of systems was completed with Ms. Mulligan and all not mentioned above were negative. PHYSICAL EXAMINATION GENERAL: Ms. Mulligan is sitting up in the bed. She is in no acute distress. VITAL SIGNS: Temperature 97.3, pulse rate 87, respiratory rate is 22, O2 saturation 98% on room air, blood pressure 135/71. LUNGS: Clear to auscultation bilaterally with no accessory muscle use and good aeration. HEART: S1, S2. No murmur, rub, or gallop and regular. ABDOMEN: Soft, nontender with bowel sounds positive x4. EXTREMITIES: Positive for bilateral lower extremity edema with chronic venous changes bilaterally. On the right lateral calf, she has an approximately 5- inch in diameter circular shallow ulceration. There is no erythema, no drainage noted today. NEURO: She is alert. She is oriented to herself. She is not a reliable historian and answers many questions incorrectly. She is not able to tell me the date. She does not know she is in the hospital. She moves all extremities equally. There is no facial asymmetry or focal weakness. Extraocular movements are intact. DIAGNOSTIC STUDIES/LAB DATA: Sodium 139, potassium 3.7, chloride 101, serum bicarbonate 28, BUN 22, creatinine 0.60, glucose 93. CRP 33. WBC 3.3, hemoglobin 11.9, hematocrit 36, ESR 43, platelet count 189. Again, venous Doppler study shows "positive femoropopliteal DVT in the left leg , partially occlusive at the common femoral vein and completely occlusive more inferiorly in the femoral vein, nonocclusive thrombus at the distal right femoral vein." ASSESSMENT AND PLAN: Ms. Mulligan is a 74-year-old female with a past medical history of chronic peripheral vascular disease with venous stasis ulcers and multiple skin grafts, who presents today to the hospital with concern for lower extremity edema, new ulceration and new left lower extremity deep venous thrombosis. Our plans are for observation in the hospital for the followin. Right lower extremity ulceration. Plan to treat with vancomycin tonight. We can adjust therapy as needed in the coming days. It is positive for MRSA. Plan to elevate lower extremities at all times when she is in bed or seated. Plan to slightly increase her diuretic. Although her legs are large, she did not have any significant swelling in her feet and I question whether or not she really does have significant extra fluid on board and therefore only plan to increase her metolazone slightly and this can be adjusted as needed going forward depending on the examination tomorrow. 2. Left lower extremity deep venous thrombosis. The patient will have Xarelto for coverage of deep venous thrombosis. She seems to have no contraindications. Kidney function is intact. 3. Chronic lower extremity edema. Again, plan to continue furosemide and we will increase metolazone from 3 days a week to daily. 4. Hypertension. Continue carvedilol and her diuretics. 5. DVT prophylaxis with Xarelto. TIME SPENT: Approximately 60 minutes was spent on the admission of this patient , more than half the time was spent with the patient at the bedside reviewing the events leading up to this hospitalization, performing the physical examination, and reviewing my plan of care. ADELITA ARREGUIN REPORTING SPECIALIST [id number]/[facility] #: [id number] DANYELLE
[2019-05-02 22:07] LABS: Urine Appearance Clear; Urine Bilirubin Negative (Negative); Urine Blood Negative (Negative); Urine Color Yellow; Urine Glucose Negative (Negative); Urine Ketones Negative (Negative); Urine Nitrite Negative (Negative); Urine Protein Negative (Negative); Urine Specific Gravity 1.013 (1.010-1.030); Urine Urobilinogen Negative (Negative)
[2019-05-02 22:14] LABS: Urine Bacteria Absent (Absent); Urine Red Blood Cell Absent (Absent); Urine Squamous Epithelial Cell Present (Absent); Urine White Blood Cell 2+(11-20/hpf) (Absent)
[2019-05-02] MEDS: Carvedilol TAB* 6.25 MG PO SCH (23:42)
[2019-05-02] MEDS: Potassium Chlor TAB* 20 MEQ TAB.ER PO SCH (23:43)
[2019-05-02] MEDS: Mometasone/Formoter 200/5 MDI INH SCH (23:43)
[2019-05-03] MEDS: Vancomycin(*) 1,250 MG in NS 0.9% 250 ML* 250 ML IVPB SCH ×2 (02:26→14:45)
[2019-05-03] MEDS: Mometasone/Formoter 200/5 MDI INH SCH ×2 (07:21→20:11)
[2019-05-03] MEDS: Cholecalciferol TAB* 1000 UNITS PO SCH (08:33)
[2019-05-03] MEDS: Rivaroxaban TAB(*) 15 MG PO SCH ×2 (08:34→22:44)
[2019-05-03] MEDS: Metolazone TAB* 5 MG PO SCH (08:34)
[2019-05-03] MEDS: Carvedilol TAB* 6.25 MG PO SCH ×2 (08:35→22:44)
[2019-05-03] MEDS: Furosemide TAB* 40 MG PO SCH (08:35)
[2019-05-03] MEDS: Potassium Chlor TAB* 20 MEQ TAB.ER PO SCH ×3 (08:35→22:44)
[2019-05-03] MEDS: Acetaminophen TAB* 325 MG PO PRN (08:38)
--- NOTE | 2019-05-03 14:17 | PN ---
Subjective Date of Service: 05/03/19 Interval History: No acute overnight events. Patient c/o right foot pain which has been ongoing for weeks, per patient. Patient denies fever/chills, chest pain, difficulty breathing, abdominal pain. Objective Active Medications: Acetaminophen (Tylenol Tab*) 487.5 mg PO BID PRN PRN Reason: PAIN - MODERATE Last Admin: 05/03/19 08:38 Dose: 487.5 mg Carvedilol (Coreg Tab*) 6.25 mg PO BID [facility] Last Admin: 05/03/19 08:35 Dose: 6.25 mg Cholecalciferol (Vitamin D Tab*) 1,000 units PO DAILY [facility] Last Admin: 05/03/19 08:33 Dose: 1,000 units Furosemide (Lasix Tab*) 40 mg PO DAILY [facility] Last Admin: 05/03/19 08:35 Dose: 40 mg Vancomycin HCl 1,250 mg/ (Sodium Chloride) 250 mls @ 166.667 mls/hr IVPB Q12H [facility] Last Admin: 05/03/19 02:26 Dose: 166.667 mls/hr Metolazone (Zaroxolyn Tab*) 2.5 mg PO DAILY@0830 [facility] Last Admin: 05/03/19 08:34 Dose: 2.5 mg Mometasone Furoate/Formoterol Fumar (Dulera 200/5 Mdi*) 2 puff INH BID [facility] Last Admin: 05/03/19 07:21 Dose: 2 puff Pharmacy Consult (Vancomycin Per Pharmacy*) 1 note FOLLOW UP .VANC PER PHARMACY [facility]; Protocol Pharmacy Profile Note (Vancomycin Trough Check) 1 note FOLLOW UP ONCE ONE Stop: 05/04/19 13:31 Potassium Chloride (Klor Con Er Tab*) 20 meq PO TID [facility] Last Admin: 05/03/19 08:35 Dose: 20 meq Rivaroxaban (Xarelto(*)) 15 mg PO BID [facility] Last Admin: 05/03/19 08:34 Dose: 15 mg Vital Signs - 8 hr 05/03/19 05/03/19 07:15 11:15 Temperature 98.5 F 97.9 F Pulse Rate 78 71 Respiratory 18 16 Rate Blood Pressure 100/58 107/64 (mmHg) O2 Sat by Pulse 100 97 Oximetry Oxygen Devices in Use Now: None Appearance: Elderly black female, sitting in chair, appearing comfortable and in NAD Eyes: No Scleral Icterus, - - PERRL Ears/Nose/Mouth/Throat: Mucous Membranes Moist Neck: NL Appearance and Movements; NL JVP Respiratory: Symmetrical Chest Expansion and Respiratory Effort, Clear to Auscultation Cardiovascular: NL Sounds; No Murmurs; No JVD, RRR Abdominal: - - abdomen soft, nontender, nondistended Extremities: No Clubbing, Cyanosis, - - +2 pitting edema bilaterally pretibially up to 4 cm below knees Skin: - - approx 7cm diameter circular wound on right lateral calf with red patches of granular tissue within; two 1 cm diameter wounds in close proximity on left lateral calf with purulent drainage; 5mm yellow blister on left sharif midway; dry skin to crease between right 1st and 2nd toe with open skin Neurological: Alert and Oriented x 3, NL Muscle Strength and Tone Result Diagrams: 05/03/19 16:53 05/03/19 16:53 Microbiology and Other Data: Microbiology 05/02/19 13:55 Aerobic Blood Culture - Preliminary Blood Venous No Growth Day 1 Anaerobic Blood Culture - Preliminary No Growth Day 1 05/02/19 13:51 Skin and Soft Tissue MRSA/MSSA (PCR - Final Leg Right Mrsa Positive S.aureus Positive Gram Stain - Final Assess/Plan/Problems-Billing Assessment: 74 yo female with PMHx venous insufficiency, chronic LE edema and ulcers, cognitive impairment, and hx of prior DVT presents with worsening LE wound. - Patient Problems (1) Wound infection Current Visit: Yes Status: Acute Code(s): T14.8XXA - OTHER INJURY OF UNSPECIFIED BODY REGION, INITIAL ENCOUNTER; L08.9 - LOCAL INFECTION OF THE SKIN AND SUBCUTANEOUS TISSUE, UNSP SNOMED Code(s): 30972746 Comment: -patient has chronic lower extremity wounds secondary to vascular insufficiency , acutely appears to be related to bilateral LEs -right lateral calf wound seen by Dr. Dobbs in wound clinic on 04/30/19, left lateral calf wound appears new since then -Dr. Dobbs ordered ABIs outpatient however they have not been performed yet. Cannot be performed inpatient due to DVTs, per lidar technician -right calf wound MRSA positive -continue vancomycin -oil emulsion dressings as recommended by Dr. Dobbs outpatient (2) DVT, bilateral lower limbs Current Visit: Yes Status: Acute Code(s): I82.403 - ACUTE EMBOLISM AND THOMBOS UNSP DEEP VEINS OF LOW EXTRM, BI SNOMED Code(s): 593635867 Comment: -confirmed on dopplers at admission -started on Xarelto -patient has prior hx of DVT and it does not appear she has had a hypercoagulability workup in this EMR. Ordering protein C, protein S, antithrombin, prothrombin, Factor V Leidin, and lupus anticoagulant (3) Peripheral vascular insufficiency Current Visit: Yes Status: Acute Code(s): I73.9 - PERIPHERAL VASCULAR DISEASE, UNSPECIFIED SNOMED Code(s): 166781008 Comment: -chronic lower extremity edema and chronic wounds previously followed in wound clinic -elevated b/l LEs (4) HTN (hypertension) Current Visit: No Status: Acute Code(s): I10 - ESSENTIAL (PRIMARY) HYPERTENSION SNOMED Code(s): 78080736 Comment: - Continue carvedilol to 6.25 mg bid and continue furosemide 20 mg daily with metolazone - Normotensive. (5) Cognitive impairment Current Visit: Yes Status: Acute Code(s): R41.89 - OTH SYMPTOMS AND SIGNS W COGNITIVE FUNCTIONS AND AWARENESS SNOMED Code(s): 151492292 Comment: -supportive care (6) Hypercalcemia Current Visit: Yes Status: Acute Code(s): E83.52 - HYPERCALCEMIA SNOMED Code(s): 71286922 Comment: -ordered PTH, SPEP, UPEP -concern for malignancy given DVTs -Ca when adjusted for albumin is 11.2 (7) Full code status Current Visit: No Status: Acute Code(s): Z78.9 - OTHER SPECIFIED HEALTH STATUS SNOMED Code(s): 352321509 (8) DVT prophylaxis Current Visit: No Status: Acute Code(s): DOT8547 - SNOMED Code(s): 655427699 Comment: -Xarelto Status and Disposition: patient resides at [place], anticipate d/c back to [place] when medically improved
[2019-05-03 17:13] LABS: ABS Eosinophils 0.1 10^3/ul (0-0.6); ABS Lymphocytes 0.6 10^3/ul (1.0-4.8); ABS Monocytes 0.4 10^3/ul (0-0.8); ABS Neutrophils 2.8 10^3/ul (1.5-7.7); Hematocrit 38 % (35-47); Hemoglobin 12.6 g/dL (12.0-16.0); Lymphocyte % 15.2 %; Mean Corpuscular HGB Conc 33 g/dL (31-36); Mean Corpuscular Hemoglobin 28 pg (27-31); Mean Corpuscular Volume 83 fL (80-97); Mean Platelet Volume 8.2 fL (7.4-10.4); Nucleated Red Blood Cells % 0.1; Platelet Count 221 10^3/uL (150-450); Red Blood Count 4.56 10^6 /uL (3.70-4.87); Red Cell Distribution Width 15 % (10-15); White Blood Count 3.9 10^3/uL (3.5-10.8)
[2019-05-03 17:32] LABS: Calcium 10.7 mg/dL (8.6-10.3); Potassium 3.8 mmol/L (3.5-5.0)
[2019-05-03 17:38] LABS: BUN/Creatinine Ratio 33.3 (8-20); EGFR African American 90.9 (>60); EGFR Non-African American 75.1 (>60)
[2019-05-04] MEDS: Vancomycin(*) 1,250 MG in NS 0.9% 250 ML* 250 ML IVPB SCH ×2 (02:02→14:37)
[2019-05-04 06:26] LABS: ABS Eosinophils 0.1 10^3/ul (0-0.6); ABS Lymphocytes 0.6 10^3/ul (1.0-4.8); ABS Monocytes 0.4 10^3/ul (0-0.8); ABS Neutrophils 2.2 10^3/ul (1.5-7.7); Eosinophil % 3.9 %; Hematocrit 34 % (35-47); Hemoglobin 11.2 g/dL (12.0-16.0); Lymphocyte % 16.3 %; Mean Corpuscular HGB Conc 33 g/dL (31-36); Mean Corpuscular Hemoglobin 27 pg (27-31); Mean Corpuscular Volume 82 fL (80-97); Platelet Count 182 10^3/uL (150-450); Red Blood Count 4.12 10^6 /uL (3.70-4.87); Red Cell Distribution Width 15 % (10-15); White Blood Count 3.4 10^3/uL (3.5-10.8)
[2019-05-04 06:44] LABS: Calcium 10.6 mg/dL (8.6-10.3); Potassium 3.4 mmol/L (3.5-5.0)
[2019-05-04 06:50] LABS: BUN/Creatinine Ratio 41.5 (8-20); EGFR African American 107.2 (>60); EGFR Non-African American 88.6 (>60)
[2019-05-04] MEDS: Mometasone/Formoter 200/5 MDI INH SCH ×2 (07:24→20:10)
[2019-05-04] MEDS: Rivaroxaban TAB(*) 15 MG PO SCH ×2 (07:42→21:42)
[2019-05-04] MEDS: Metolazone TAB* 5 MG PO SCH (07:43)
[2019-05-04] MEDS: Potassium Chlor TAB* 20 MEQ TAB.ER PO SCH ×3 (07:44→21:42)
[2019-05-04] MEDS: Cholecalciferol TAB* 1000 UNITS PO SCH (07:44)
[2019-05-04] MEDS: Carvedilol TAB* 6.25 MG PO SCH ×2 (07:44→21:42)
[2019-05-04] MEDS: Furosemide TAB* 40 MG PO SCH (07:49)
[2019-05-04] MEDS: Acetaminophen TAB* 325 MG PO PRN ×2 (07:49→22:21)
--- NOTE | 2019-05-04 12:51 | PN ---
Subjective Date of Service: 05/04/19 Interval History: Pt feels well. Stated that she has lived at [facility] x 6 months. Pt is non- ambulatory at baseline and she does not know why. Objective Active Medications: Acetaminophen (Tylenol Tab*) 487.5 mg PO BID PRN PRN Reason: PAIN - MODERATE Last Admin: 05/04/19 07:49 Dose: 487.5 mg Carvedilol (Coreg Tab*) 6.25 mg PO BID [facility] Last Admin: 05/04/19 07:44 Dose: 6.25 mg Furosemide (Lasix Tab*) 40 mg PO DAILY [facility] Last Admin: 05/04/19 07:49 Dose: 40 mg Vancomycin HCl 1,250 mg/ (Sodium Chloride) 250 mls @ 166.667 mls/hr IVPB Q12H [facility] Last Admin: 05/04/19 02:02 Dose: 166.667 mls/hr Influenza Virus Vaccine (Fluarix Quad 3505-3892 Syr) 0.5 ml IM .ONCE ONE Stop: 05/05/19 09:01 Metolazone (Zaroxolyn Tab*) 2.5 mg PO DAILY@0830 [facility] Last Admin: 05/04/19 07:43 Dose: 2.5 mg Mometasone Furoate/Formoterol Fumar (Dulera 200/5 Mdi*) 2 puff INH BID [facility] Last Admin: 05/04/19 07:24 Dose: 2 puff Pharmacy Consult (Vancomycin Per Pharmacy*) 1 note FOLLOW UP .VANC PER PHARMACY [facility]; Protocol Pharmacy Profile Note (Vancomycin Trough Check) 1 note FOLLOW UP ONCE ONE Stop: 05/04/19 13:31 Potassium Chloride (Klor Con Er Tab*) 20 meq PO TID [facility] Last Admin: 05/04/19 07:44 Dose: 20 meq Rivaroxaban (Xarelto(*)) 15 mg PO BID [facility] Last Admin: 05/04/19 07:42 Dose: 15 mg Vital Signs - 8 hr 05/04/19 05/04/19 05/04/19 07:15 07:25 07:53 Temperature 97.3 F Pulse Rate 66 81 Respiratory 19 18 18 Rate Blood Pressure 96/52 (mmHg) O2 Sat by Pulse 99 99 Oximetry Oxygen Devices in Use Now: None Appearance: 74 yo f in nAD, aAOx2, poor historian Eyes: No Scleral Icterus, PERRLA Ears/Nose/Mouth/Throat: NL Teeth, Lips, Gums, Mucous Membranes Moist Neck: NL Appearance and Movements; NL JVP, Trachea Midline Respiratory: Symmetrical Chest Expansion and Respiratory Effort, Clear to Auscultation Cardiovascular: NL Sounds; No Murmurs; No JVD, RRR Abdominal: NL Sounds; No Tenderness; No Distention Lymphatic: No Cervical Adenopathy Extremities: - - b/l LE's lymphoedema noted, dressings not uncovered today Neurological: NL Muscle Strength and Tone Result Diagrams: 05/04/19 06:03 05/04/19 06:03 Microbiology and Other Data: Microbiology 05/02/19 13:55 Aerobic Blood Culture - Preliminary Blood Venous No Growth Day 1 Anaerobic Blood Culture - Preliminary No Growth Day 1 05/02/19 13:51 Skin and Soft Tissue MRSA/MSSA (PCR - Final Leg Right Mrsa Positive S.aureus Positive Gram Stain - Final Assess/Plan/Problems-Billing Assessment: 74 yo female with PMHx venous insufficiency, chronic LE edema and ulcers, cognitive impairment, and hx of prior DVT presents with worsening LE wound. - Patient Problems (1) Wound infection Comment: -patient has chronic lower extremity wounds secondary to vascular insufficiency , acutely appears to be related to bilateral LEs DVT's -right lateral calf wound seen by Dr. Dobbs in wound clinic on 04/30/19, left lateral calf wound appears new since then -Dr. Dobbs ordered ABIs outpatient however they have not been performed yet. Cannot be performed inpatient due to DVTs, per music sound light technician -right calf wound MRSA positive -continue vancomycin -oil emulsion dressings as recommended by Dr. Dobbs outpatient (2) Cognitive impairment Comment: -supportive care (3) DVT, bilateral lower limbs Comment: -confirmed on dopplers at admission -started on Xarelto -patient has prior hx of DVT and it does not appear she has had a hypercoagulability workup in this EMR. Ordered protein C, protein S, antithrombin, prothrombin, Factor V Leidin, and lupus anticoagulant pending (4) Hypercalcemia Comment: -PTH at 104-suggestive of primary hyperparathyroidism -SPEP, UPEP pending -Ca when adjusted for albumin is 11.2 -24H urine collection started today -pt asymptomatic (5) HTN (hypertension) Comment: - Continue carvedilol to 6.25 mg bid and continue furosemide 20 mg daily with metolazone - Normotensive. (6) DVT prophylaxis Comment: -Xarelto Status and Disposition: patient resides at [place], anticipate d/c back to [place] when medically improved
[2019-05-04] MEDS ORDERED: Vancomycin Trough Check NOTE FOLLOW UP ONE (13:30)
[2019-05-04] MEDS: Vancomycin(*) 1,000 MG in NS 0.9% 250 ML* 250 ML IV SCH (17:05)
[2019-05-05] MEDS: Vancomycin(*) 1,000 MG in NS 0.9% 250 ML* 250 ML IV SCH (05:46)
[2019-05-05] MEDS: Metolazone TAB* 5 MG PO SCH (08:19)
[2019-05-05] MEDS: Carvedilol TAB* 6.25 MG PO SCH (08:19)
[2019-05-05] MEDS: Furosemide TAB* 40 MG PO SCH (08:20)
[2019-05-05] MEDS: Rivaroxaban TAB(*) 15 MG PO SCH (08:20)
[2019-05-05] MEDS: Potassium Chlor TAB* 20 MEQ TAB.ER PO SCH ×2 (08:20→14:50)
[2019-05-05] MEDS: Mometasone/Formoter 200/5 MDI INH SCH (08:32)
[2019-05-05] MEDS ORDERED: Influenza VAC *QUAD* 2019-20* 0.5 ML SYRINGE IM ONE (09:00)
[2019-05-05] MEDS ORDERED: Carvedilol TAB* 6.25 MG PO SCH (09:17)
[2019-05-05] MEDS ORDERED: Potassium Chlor TAB* 20 MEQ TAB.ER PO ONE (09:38)
--- NOTE | 2019-05-05 12:10 | DS ---
CC: Dr. Swain; Dr. Ramu Reid; Dr. Dobbs, Wound Care; Dr. Phipps; Dr. Messina * DISCHARGE SUMMARY: DATE OF ADMISSION: 05/02/19 DATE OF DISCHARGE: To [facility], 05/05/19. PRIMARY CARE PROVIDER: Dr. wSain. DISPOSITION AT DISCHARGE: To [facility]. CONDITION ON DISCHARGE: Stable. DISCHARGE DIAGNOSES: 1. Bilateral lower extremity deep venous thrombosis. 2. Cellulitis with wound culture positive for methicillin-resistant Staphylococcus aureus of the right calf with chronic ulceration of the right calf. Please also note that the wound cultures were also positive for pseudomonas. 3. Mild hypercalcemia noted on the patient's medical records for at least a couple of years with parathyroid hormone markedly elevated, likely primary hyperparathyroidism. PAST MEDICAL HISTORY: 1. History of peripheral vascular disease with chronic lower extremity edema, venous stasis ulcers, status post multiple skin grafts. 2. History of cognitive impairment. 3. Asthma. 4. Osteoporosis. 5. History of DVT in 2005, previously on Coumadin. 6. Hypertension. 7. History of possible heart failure with preserved ejection fraction. 8. Cervical cancer in the past. 9. Total abdominal hysterectomy in 1975. 10. History of skin grafting to the left lower extremity x2. MEDICATIONS AT DISCHARGE: Include: 1. Acetaminophen 500 mg b.i.d. p.r.n. 2. Advair Diskus 500/50 one inhalation b.i.d. 3. Furosemide 40 mg daily. 4. Zaroxolyn 2.5 mg Mondays, Wednesdays, and Fridays. 5. Patanol eye drops 1 drop both eyes b.i.d. 6. Alderpoint-3 fatty acids 1000 mg daily. 7. Potassium chloride 20 mEq 3 times a day. 8. Coreg 6.25 mg b.i.d. 9. Vitamin D3 1000 units daily. 10. Doxycycline 100 mg b.i.d. for a total of 4 days, then stop. 11. Xarelto 15 mg b.i.d. for a total of 21 days, then switch to 20 mg daily. LABORATORY DATA AND STUDIES PERFORMED DURING THE HOSPITAL STAY: Included on , sodium 137, potassium 3.4, chloride 103, carbon dioxide 29, BUN 27, creatinine 0.65. The patient's PTH level was 104 and that was PTH intact and calcium was 10.6. Her 25-hydroxyvitamin D was 36. CBC on 05/04/19: White blood cell count of 3.4, hemoglobin of 11.2, hematocrit of 34, and platelets of 182. Venous Doppler study obtained on 05/02/19, impression: "Positive femoral DVT in the left leg, partially occlusive at the common femoral vein and completely occlusive inferiorly to the femoral vein. Nonocclusive thrombus at the distal right femoral vein." The patient's microbiology studies showed wound cultures positive for Pseudomonas aeruginosa and MRSA. I do not have sensitivities of pseudomonas. MRSA is sensitive to vancomycin, Bactrim, tetracycline, rifampin, minocycline, linezolid, gentamicin, and doxycycline. The patient's blood cultures 1 out of 2 bottles was positive for gram-positive cocci that was MRSA and staphylococcus negative. HOSPITALIZATION COURSE: Ms. Ela Mulligan is a 74-year-old female who is residing at [facility] who has history of venous stasis ulcers with multiple skin grafts in the past, who presented to the hospital complaining of bilateral lower extremity edema. The patient also had more erythema on the right calf. She was noted to have cellulitis and her wound cultures of the right skin grafted area was positive for MRSA and pseudomonas. The patient also was noted to have bilateral lower extremity DVT. In addition to above mentioned, she had a calcium level that was slightly elevated at 10.6 to 10.7 and that was dating back to 2012. PTH level was obtained and was 104. That is likely due to primary hyperparathyroidism. Please also note that the patient is asymptomatic from her hyperparathyroidism and looks like it has been ongoing for quite some time. We are obtaining at this point 24-hour urinary calcium collection and that is going to end prior to the patient's discharge to [facility]. In regards to the patient's bilateral DVTs, she was placed on Xarelto and she is supposed to continue Xarelto b.i.d. until 21 days are completed and then placed on 20 mg daily. In regards to the patient's cellulitis, she was treated with vancomycin only with great improvement of her cellulitis. Later on, her wound cultures were also positive for pseudomonas. It appears that the cellulitis was likely related to MRSA infection since it got markedly improved on vancomycin by itself. At this point, the patient is going to be continued on doxycycline to cover the MRSA infection. I do not believe that coverage for pseudomonas at this point is necessary. During the patient's hospital stay, we continued Vaseline dressings that were recommended by Dr. Dobbs from Wound Care. In addition to that, we added ABD pads on top to seeping lesions and continued Alberto bandages and elevation of the legs with good results. This wound dressing is recommended to be continued until the patient is seen by the wound care provider for followup. DISCHARGE INSTRUCTIONS: In regards to the patient's followup: 1. The patient is recommended to follow up with a provider from the alf in the next 4 to 7 days. 2. The patient is recommended to follow up with wound care center within the next week. 3. The patient is recommended to follow up with Dr. Phipps from Endocrinology or Dr. Messina from Endocrinology. I attempted to make an appointment for Dr. Phipps from Endocrinology for the patient, but apparently the patient has balance on her account and they are unable to schedule it for her. At this point, I recommended case making machine operator from alf and pediatric social worker from alf to try to help this patient with managing the patient's hyperparathyroidism and endocrinology evaluation. At this point, once again, it appears that it had been ongoing for quite some time and the patient's calcium levels are not markedly elevated and she is asymptomatic from that standpoint. PHYSICAL EXAMINATION: At the time of discharge, blood pressure of 96/44, heart rate of 74 and regular, respiratory rate 18, oxygen saturation 95% on room air, temperature 97.4. General: The patient is a very pleasant 74-year-old female, who is in no acute distress. The patient is a poor historian, but she is alert and oriented x2. HEENT: Head: Atraumatic, normocephalic. Eyes: Pupils are equal, reactive to light and accommodation. Oropharynx is clear. Mucosa moist. Neck: Supple. No JVD. No bruits bilaterally. Cardiovascular: Regular rate and rhythm. No murmur. Respiratory: Clear to auscultation bilaterally. Abdomen: Protuberant, soft, nontender. Bowel sounds are present in all 4 quadrants. Extremities: There is bilateral venous stasis edema in bilateral lower extremities with venous stasis discoloration of the skin. The patient has seeping blisters on the left lateral calf and on the lateral aspect of the right calf, she has an area status post skin grafting and shallow ulcer of approximately 6 cm in diameter well granulating with no evidence of discharge, although the area is wet. The area of surrounding cellulitis is resolved by the time of discharge and now there is only slight erythema present surrounding the ulcer. On neuro evaluation, cranial nerves II through XII are grossly intact. Motor strength is 5/5 bilaterally, bilateral lower extremities at 4+/5 which is chronic. The patient needs assist with EasyStand to be able to stand up. The patient is being discharged to [facility] with the above recommendations for continuation of treatment. Please note that this is a short summary of the patient's hospital stay. Please refer to further medical records for details. TIME SPENT: Approximately 45 minutes was spent on the patient's discharge. [id number]/[facility] #: [id number] DANYELLE
[2019-05-05 14:44] VITALS: BP 93/47
[2019-05-06] MEDS ORDERED: Vancomycin Trough Check NOTE FOLLOW UP ONE (05:30)
[2019-05-06 11:46] LABS: Urine Calcium 128 mg/24 h (<200); Urine Calcium Conc 8 mg/dL; Urine Collection Duration 24 h
[2019-05-07 13:54] LABS: Albumin 3.3 g/dL (3.4-4.7); Albumin/Globulin Ratio 0.77; Gamma Globulin 1.5 g/dL (0.6-1.6); Total Protein(PEP) 7.7 g/dL (6.3 - 7.9)
[2019-05-07 14:31] LABS: Albumin 100 %; Total Protein(PEP) Urine 9 mg/dL
[2019-05-07 18:03] LABS: Prothrombin 20210 Mutation Negative (Negative)
[2019-05-07 18:04] LABS: Factor V Leiden Mutation Negative (Negative)
== END 2019-05-05 15:00 | DRG 603 ==
LOC: ED 13:10 → MED 18:29 → OBSVTOIN 05-03 09:15
PROVIDERS: ADMIT Internal Medicine; ATTEND Internal Medicine
DX: L03.115 Cellulitis of right lower limb (principal); I82.403 Acute embolism and thrombosis of unspecified deep veins of lower extremity, bilateral; L97.219 Non-pressure chronic ulcer of right calf with unspecified severity; I50.32 Chronic diastolic (congestive) heart failure; L97.211 Non-pressure chronic ulcer of right calf limited to breakdown of skin; I82.413 Acute embolism and thrombosis of femoral vein, bilateral; B95.62 Methicillin resistant Staphylococcus aureus infection as the cause of diseases classified elsewhere; B96.5 Pseudomonas (aeruginosa) (mallei) (pseudomallei) as the cause of diseases classified elsewhere; E21.0 Primary hyperparathyroidism; I73.9 Peripheral vascular disease, unspecified; M81.0 Age-related osteoporosis without current pathological fracture; I83.012 Varicose veins of right lower extremity with ulcer of calf; G31.84 Mild cognitive impairment of uncertain or unknown etiology; I11.0 Hypertensive heart disease with heart failure; J45.909 Unspecified asthma, uncomplicated; I87.2 Venous insufficiency (chronic) (peripheral); Z86.718 Personal history of other venous thrombosis and embolism; Z85.41 Personal history of malignant neoplasm of cervix uteri; Z88.5 Allergy status to narcotic agent; Z87.891 Personal history of nicotine dependence; Z28.21 Immunization not carried out because of patient refusal
CPT/HCPCS: 36415; 80048; 80053; 80202; 81003; 81015; 81240; 81241; 82306; 82330; 82340; 83605; 83970; 84155; 84156; 84165; 84166; 84550; 85025; 85220; 85300; 85303; 85306; 85598; 85652; 86140; 87040; 87070; 87077; 87086; 87150; 87186; 87205; 87640; 87641; 90686; 93970; 94640; 96365; 96367; 96372; 99284; A9270-GY; G0378; J0696; J1650; J3370

== ENCOUNTER 2019-05-30 15:33 | Emergency (ER) | payer MEDICARE ==
--- NOTE | 2019-05-30 15:40 | ED ---
GI/ HPI - HPI Summary HPI Summary: This pt is a 74 y/o female presenting to [facility] via EMS from [facility] for constipation and burning pain with urination since a few days ago. Additionally pt states she has been experiencing pain in her buttocks, rectum, and vagina. She denies abd pain, fever, chills, vomiting, chest pain, SOB. EMS reports pt had a small bowel movement yesterday and this morning. Pt states her last bowel movement was 3 days ago. Pt has a chronic arora. She denies any hx of abdominal surgeries. PMHx includes cervical CA, blood clots, peripheral vascular disease, HTN, CHF. Medications reviewed. Allergies noted. - History of Current Complaint Stated Complaint: RECTAL PAIN PER EMS Hx Obtained From: Patient, EMS Onset/Duration: Started Days Ago, Still Present Timing: Lasting Days Current Severity: Moderate Pain Intensity: 8 Location of Pain: Rectal Additional Location for Females: Other - vagina Pain Characteristics: Burning Associated Signs and Symptoms: Positive: Rectal Pain, Dysuria, Other: - constipation, pain in buttocks. Negative: Nausea, Vomiting, Fever, Chills, Abdominal Pain, Chest Pain Aggravating Factor(s): Nothing Alleviating Factor(s): Nothing - Additional Pertinent History Primary Care Physician: [id number] - Allergy/Home Medications Allergies/Adverse Reactions: Allergies Allergy/AdvReac Type Severity Reaction Status Date / Time hydrocodone Allergy Unknown Unknown Verified 05/02/19 13:24 Reaction Details Home Medications: Home Medications Magnesium Hydroxide LIQ* [Milk of Magnesia LIQ*] 30 ml PO Q72HR PRN 05/30/19 [ History Confirmed 05/30/19] Sodium Phosphate,Hyde-Dibasic [Enema Ready To Use] 133 ml [place] DAILY 05/30/19 [ History Confirmed 05/30/19] PMH/Surg Hx/FS Hx/Imm Hx Endocrine/Hematology History: Denies: Hx Diabetes Cardiovascular History: Reports: Hx Congestive Heart Failure, Hx Deep Vein Thrombosis, Hx Hypertension, Hx Peripheral Vascular Disease, Other Cardiovascular Problems/Disorders - chf Denies: Hx Pacemaker/ICD Respiratory History: Reports: Hx Asthma Denies: Hx Chronic Obstructive Pulmonary Disease (COPD) History: Denies: Hx Dialysis Musculoskeletal History: Reports: Hx Osteoporosis, Other Musculoskeletal History - peripheral vascular disease Sensory History: Denies: Hx Contacts or Glasses, Hx Deafness, Hx Hearing Aid Opthamlomology History: Denies: Hx Contacts or Glasses Neurological History: Denies: Hx Developmental Delay Comment Only: Hx Dementia - unsure Psychiatric History: Denies: Hx Panic Disorder - Cancer History Cancer Type, Location and Year: cervical Hx Chemotherapy: No Hx Radiation Therapy: No - Surgical History Surgery Procedure, Year, and Place: skin graft left leg[place],. hyste[place], Hx Anesthesia Reactions: No Infectious Disease History: Reports: Hx of Known/Suspected MRSA - possible? patient is unsure - Family History Known Family History: Negative: Diabetes Family History: No FHx of breast CA - Social History Alcohol Use: None Hx Substance Use: No Substance Use Type: Reports: None Hx Tobacco Use: Yes Smoking Status (MU): Former Smoker Type: Cigarettes Have You Smoked in the Last Year: No Review of Systems Negative: Fever, Chills Negative: Chest Pain Negative: Shortness Of Breath Gastrointestinal: Other - POSITIVE: constipation, rectal pain Negative: Abdominal Pain, Vomiting, Nausea Genitourinary: Other - POSITIVE: vaginal pain Positive: dysuria Musculoskeletal: Other - POSITIVE: buttocks pain All Other Systems Reviewed And Are Negative: Yes Physical Exam - Summary Physical Exam Summary: Constitutional: Well-developed, Well-nourished, Alert. (-) Distressed Skin: Warm, Dry. Stage 1 decubitus ulcer superior to the gluteal cleft. HENT: Normocephalic; Atraumatic Eyes: Conjunctiva normal Neck: Musculoskeletal ROM normal neck. (-) JVD, (-) Stridor, (-) Tracheal deviation Cardio: Rhythm regular, rate normal, Heart sounds normal; Intact distal pulses; The pedal pulses are 2+ and symmetric. Radial pulses are 2+ and symmetric. (-) Murmur Pulmonary/Chest wall: Effort normal. (-) Respiratory distress, (-) Wheezes, (-) Rales Abd: Soft, mild diffuse abdominal tenderness, (-) Distension, (-) Guarding, (-) Rebound. Patient has a arora catheter in place. Musculoskeletal: (-) Edema Lymph: (-) Cervical adenopathy Neuro: Alert, Oriented x3 Psych: Mood and affect Normal Triage Information Reviewed: Yes Vital Signs On Initial Exam: Initial Vitals Temp Pulse Resp BP Pulse Ox 97.6 F 77 18 159/89 96 05/30/19 15:37 05/30/19 15:37 05/30/19 15:37 05/30/19 15:37 05/30/19 15:37 Vital Signs Reviewed: Yes Procedures - Sedation Patient Received Moderate/Deep Sedation with Procedure: No Diagnostics - Laboratory Result Diagrams: 05/30/19 15:54 05/30/19 15:54 Lab Statement: Any lab studies that have been ordered have been reviewed, and results considered in the medical decision making process. - Radiology Abdomen XR Radiology Interpretation Completed By: Radiologist Summary of Radiographic Findings: IMPRESSION: Paucity of bowel gas in the rectum. The upstream gaseous loops of bowel at the upper limits of normal. A distal partial bowel obstruction is not excluded. Dr. Ruiz has reviewed this report. Re-Evaluation - Re-Evaluation First Eval Re-Evaluation Time: 16:50 Comment: Reviewed results with patient. She will be discharged home. GIGU Course/Dx - Course Course Of Treatment: Patient is here with pain in her vagina and constipation. Patient had a small bowel movement today and one yesterday. Patient has no abdominal pain or vomiting and her story is not consistent with bowel obstruction. Patient has dealt with constipation in the past. Patient had a x- ray which showed no obvious bowel instruction. Patient had a UA which showed UTI. Patient's had blood cultures grossly unremarkable. Patient was discharged on Bactrim and MiraLAX. - Diagnoses Provider Diagnoses: Constipation, UTI (urinary tract infection) Discharge ED - Sign-Out/Discharge Documenting (check all that apply): Patient Departure - Discharge home - Discharge Plan Condition: Stable Disposition: HOME Prescriptions: Polyethylene Glycol 3350* [Miralax*] 17 gm PO DAILY 7 Days #1 packet Sulfamethox/Trimethoprim DS* [Bactrim DS 800/160 TAB*] 1 tab PO BID 7 Days #14 tab Patient Education Materials: Constipation (ED), Urinary Tract Infection in Women (ED) Referrals: Marii Swain MD [Primary Care Provider] - Additional Instructions: Take antibiotics as prescribed. Start using Miralax. PLEASE RETURN TO THE EMERGENCY DEPARTMENT IF YOU HAVE INABILITY TO HAVE A BOWEL MOVEMENT FOR A COUPLE OF DAYS WITH ABDOMINAL PAIN OR VOMITING. Please follow up with your primary care physician. Please make all follow-ups in 1-3 days unless I advise you otherwise. - Billing Disposition and Condition Condition: STABLE Disposition: Home - Attestation Statements Document Initiated by Scribe: Yes Documenting Scribe: Darlyn Kinney Provider For Whom Scribe is Documenting (Include Credential): Eric Ruiz MD Scribe Attestation: I, Darlyn Kinney, scribed for Eric Ruiz MD on 05/30/19 at 1713. Scribe Documentation Reviewed: Yes Provider Attestation: The documentation as recorded by the [email or web address] accurately reflects the service I personally performed and the decisions made by me, Eric Ruiz MD Status of Scribe Document: Viewed
[2019-05-30 16:03] LABS: Urine Appearance Cloudy; Urine Bilirubin Negative (Negative); Urine Blood 2+ (Negative); Urine Color Yellow; Urine Glucose Negative (Negative); Urine Ketones Negative (Negative); Urine Nitrite Negative (Negative); Urine Protein Negative (Negative); Urine Urobilinogen Negative (Negative)
[2019-05-30 16:04] LABS: ABS Eosinophils 0.2 10^3/ul (0-0.6); ABS Lymphocytes 0.6 10^3/ul (1.0-4.8); ABS Monocytes 0.5 10^3/ul (0-0.8); ABS Neutrophils 6.5 10^3/ul (1.5-7.7); Eosinophil % 2.3 %; Hematocrit 44 % (35-47); Hemoglobin 14.7 g/dL (12.0-16.0); Mean Corpuscular HGB Conc 33 g/dL (31-36); Mean Corpuscular Hemoglobin 28 pg (27-31); Mean Corpuscular Volume 84 fL (80-97); Mean Platelet Volume 7.9 fL (7.4-10.4); Nucleated Red Blood Cells % 0.1; Platelet Count 283 10^3/uL (150-450); Red Blood Count 5.27 10^6 /uL (3.70-4.87); Red Cell Distribution Width 15 % (10-15); White Blood Count 7.7 10^3/uL (3.5-10.8)
[2019-05-30 16:07] LABS: Urine Bacteria Absent (Absent); Urine Red Blood Cell 3+(>10/hpf) (Absent); Urine Squamous Epithelial Cell Present (Absent); Urine White Blood Cell 2+(11-20/hpf) (Absent)
[2019-05-30] MEDS ORDERED: Acetaminophen TAB* 325 MG PO ONE (16:10)
[2019-05-30 16:13] LABS: Albumin 3.7 g/dL (3.2-5.2); Calcium 10.8 mg/dL (8.6-10.3); Potassium 3.6 mmol/L (3.5-5.0); Total Bilirubin 0.3 mg/dL (0.2-1.0)
[2019-05-30 16:19] LABS: Albumin/Globulin Ratio 0.9 (1-3); BUN/Creatinine Ratio 32.1 (8-20); EGFR African American 135.7 (>60); EGFR Non-African American 112.2 (>60); Globulin 4.1 g/dL (2-4); Total Protein 7.8 g/dL (6.4-8.9)
[2019-05-30] MEDS ORDERED: Sulfamethox/Trimethoprim DS 800/160* TAB PO ONE (16:39)
[2019-05-30 17:56] VITALS: BP 121/59
--- NOTE | 2019-06-02 08:21 | ED ---
Imaging and Labs Follow Up Follow Up Type: Labs/Cultures Labs/Culture Result: Urine culture growing 10-25k proteus Patient Communication/Plan: Pt. was treated with Bactrim for UTI. Sensitivity pending. No change in treatment at this time. Provider Diagnoses: Constipation, UTI (urinary tract infection)
== END 2019-05-30 17:46 | disposition home or self-care (01) ==
LOC: ED 15:33
DX: K59.00 Constipation, unspecified (principal); N39.0 Urinary tract infection, site not specified; K62.89 Other specified diseases of anus and rectum; R30.0 Dysuria; I73.9 Peripheral vascular disease, unspecified; I11.0 Hypertensive heart disease with heart failure; I50.9 Heart failure, unspecified; Z85.41 Personal history of malignant neoplasm of cervix uteri; Z87.891 Personal history of nicotine dependence
CPT/HCPCS: 36415; 74018; 80053; 81003; 81015; 85025; 87086; 99283; A9270-GY

== ENCOUNTER 2019-06-13 16:57 | Emergency (ER) | payer MEDICARE ==
--- NOTE | 2019-06-13 17:37 | ED ---
Lower Extremity - HPI Summary HPI Summary: Patient is a 74 y/o F presenting to the ED via EMS for a chief complaint of left knee pain. Patient notes her right second toe has "turned dark and dry" and she has been unable to ambulate at home due to her toe and left knee pain. On triage, patient rates her pain as a 7/10 in severity. Patient denies any injury to the areas or falls. She denies numbness or paresthesia in the bilateral LE. She denies any aggravating or alleviating factors. PMHx is significant for DM, PVD, ulcers, and skin grafts. She had an MONA checked in May 2019 for her lower extremities. Patient was admitted to [facility] in April 2019 for DVT, MRSA, and pseudomonas. At that time, she was sent home from [facility] with a prescription of doxycycline for MRSA. - History of Current Complaint Stated Complaint: INFECTION PER EMS Time Seen by Provider: 06/13/19 17:06 Hx Obtained From: Patient Mechanism Of Injury: Other - None Onset/Duration: Still Present Severity Initially: Severe Severity Currently: Severe Pain Intensity: 7 Pain Scale Used: 0-10 Numeric Timing: Constant Location: Is Discrete @ - Left knee and right second toe Associated Signs And Symptoms: Positive: Knee Pain - Left Aggravating Factor(s): Nothing Alleviating Factor(s): Nothing Able to Bear Weight: No - Unable to ambulate - Allergies/Home Medications Allergies/Adverse Reactions: Allergies Allergy/AdvReac Type Severity Reaction Status Date / Time hydrocodone Allergy Unknown Unknown Verified 05/02/19 13:24 Reaction Details Home Medications: Home Medications Acetaminophen TAB* [Tylenol TAB*] 650 mg PO Q4H PRN 06/13/19 [History Confirmed 06/13/19] Cholecalciferol (Vitamin D3) [Vitamin D3] 1,000 unit PO DAILY 06/13/19 [History Confirmed 06/13/19] Glycerin ADULT SUPP* 1 supp OK DAILY PRN 06/13/19 [History Confirmed 06/13/19] Hydrocolloid Dressing [Aquacel] 1 patch TOPICAL DAILY 06/13/19 [History Confirmed 06/13/19] Olopatadine 0.1% OPHTH (NF) [Patanol 0.1% OPHTH (NF)] 1 drop BOTH EYES BID 06/13 [History Confirmed 06/13/19] Clubb-3 Fatty Acids (Nf) [Fish Oil (NF)] 1,000 mg PO DAILY 06/13/19 [History Confirmed 06/13/19] Rivaroxaban TAB(*) [Xarelto 15 mg(*)] 15 mg PO QPM 06/13/19 [History Confirmed 06/13/19] Sodium Phosphate,[place]-Dibasic [Enema Ready To Use] 133 ml OK DAILY PRN 06/13/19 [History Confirmed 06/13/19] Vitamin E/Aloe Vera [Wound Gel] 1 gel TOPICAL Q3D 06/13/19 [History Confirmed ] oxyCODONE/Acetamin 5/325 MG* [Percocet 5/325 TAB*] 1 tab PO Q4H PRN 06/13/19 [ History Confirmed 06/13/19] PMH/Surg Hx/FS Hx/Imm Hx Previously Healthy: Yes Endocrine/Hematology History: Reports: Hx Diabetes Cardiovascular History: Reports: Hx Congestive Heart Failure, Hx Deep Vein Thrombosis, Hx Hypertension, Hx Peripheral Vascular Disease, Other Cardiovascular Problems/Disorders - chf Denies: Hx Pacemaker/ICD Respiratory History: Reports: Hx Asthma Denies: Hx Chronic Obstructive Pulmonary Disease (COPD) History: Denies: Hx Dialysis Musculoskeletal History: Reports: Hx Osteoporosis, Other Musculoskeletal History - peripheral vascular disease Sensory History: Denies: Hx Contacts or Glasses, Hx Legally Blind, Hx Deafness, Hx Hearing Aid Opthamlomology History: Denies: Hx Contacts or Glasses, Hx Legally Blind EENT History: Denies: Hx Deafness Neurological History: Denies: Hx Developmental Delay Comment Only: Hx Dementia - unsure Psychiatric History: Denies: Hx Panic Disorder - Cancer History Cancer Type, Location and Year: cervical Hx Chemotherapy: No Hx Radiation Therapy: No - Surgical History Surgical History: Yes Surgery Procedure, Year, and Place: skin graft left leg[place],. hysterectomy-[place], Hx Anesthesia Reactions: No Infectious Disease History: Yes Infectious Disease History: Reports: Hx of Known/Suspected MRSA - possible? patient is unsure Denies: Traveled Outside the [place] in Last 30 Days - Family History Known Family History: Negative: Diabetes Family History: No FHx of breast CA - Social History Occupation: Retired [facility] Alcohol Use: None Hx Substance Use: No Substance Use Type: Reports: None Hx Tobacco Use: Yes Smoking Status (MU): Former Smoker Type: Cigarettes Have You Smoked in the Last Year: No Review of Systems Positive: Arthralgia - Left knee, Decreased ROM - Unable to ambulate due to left knee pain Positive: Other - Positive hyperpigmentation and dryness to the right second toe Negative: Paresthesia - Bilateral LE, Numbness - Bilateral LE All Other Systems Reviewed And Are Negative: Yes Physical Exam - Summary Physical Exam Summary: Constitutional: Well-developed, Well-nourished, Alert. (-) Distressed. Elderly. Skin: Warm, Dry HENT: Normocephalic; Atraumatic Eyes: Conjunctiva normal Neck: Musculoskeletal ROM normal neck. (-) JVD, (-) Stridor, (-) Nuchal rigidity Cardio: Rhythm regular, rate normal, Heart sounds normal; Intact distal pulses; Radial pulses are 2+ and symmetric. (-) Murmur Pulmonary/Chest wall: Effort normal. (-) Respiratory distress, (-) Wheezes, (-) Rales Abd: Soft, (-) tenderness, (-) Distension, (-) Guarding, (-) Rebound Musculoskeletal: (-) Edema. Tenderness of the left patella. Hyperpigmentation and crusting of the dorsum of the right foot, mostly between the second and third toes. Lymph: (-) Cervical adenopathy Neuro: Alert, Oriented x3 Psych: Mood and affect Normal Triage Information Reviewed: Yes Vital Signs On Initial Exam: Initial Vitals Temp Pulse Resp BP Pulse Ox 98.8 F 73 16 117/60 97 06/13/19 17:32 06/13/19 17:32 06/13/19 17:32 06/13/19 17:32 06/13/19 17:32 Vital Signs Reviewed: Yes Procedures - Sedation Patient Received Moderate/Deep Sedation with Procedure: No Diagnostics - Vital Signs Vital Signs Temp Pulse Resp BP Pulse Ox 06/13/19 17:32 98.8 F 73 16 117/60 97 - Laboratory Lab Statement: Any lab studies that have been ordered have been reviewed, and results considered in the medical decision making process. - Radiology Foot X-ray Radiology Interpretation Completed By: ED Physician Summary of Radiographic Findings: Foot X-ray IMPRESSION: no acute abnormality. Reviewed and interpreted by Dr. Barlow, pending official radiology report. Knee X-ray Radiology Interpretation Completed By: ED Physician Summary of Radiographic Findings: Knee X-ray IMPRESSION: no acute fracture. Reviewed and interpreted by Dr. Barlow, pending official radiology report. - EKG 17:07 Cardiac Rate: NL - 74 BPM EKG Rhythm: Sinus Rhythm ST Segment: Normal Ectopy: None EKG Comparison: No Significant Change Summary of EKG Findings: An EKG at 17:07 reveals normal sinus rhythm with 74 BPM , old RBBB, nml axis, nml intervals. No STEMI. No acute changes. No change when compared to prior EKG on 08/12/18. Reviewed and interpreted by Dr. Barlow. Lower Extremity Course/Dx - Course Course Of Treatment: 74 old female with known peripheral vascular disease, DVT sounds are also, venous stasis ulcers and history of MRSA who presents with right foot wound as well as atraumatic and chronic left knee pain. - regarding knee pain, no new trauma, no fevers, able to range lower suspicion for septic joint. X-ray does not show any acute fractures. - regarding wound to foot, foot with mild crusting and hyperpigmentation of the dorsum of the foot, sensation intact, plus DP pulse. Wound was cleansed, does appear to have some crusting underlying wound therefore was given doxycycline as it was which was previous on while inpatient. Patient to follow-up in wound clinic - Diagnoses Provider Diagnoses: Knee pain, Cellulitis Discharge ED - Sign-Out/Discharge Documenting (check all that apply): Patient Departure - Discharge - Discharge Plan Condition: Stable Disposition: HOME Prescriptions: DOXYcycline CAP(*) [DOXYcycline 100MG CAP(*)] 100 mg PO BID 7 Days #14 cap Patient Education Materials: Cellulitis (ED), Knee Pain (ED) Referrals: Marii Swain MD [Primary Care Provider] - Additional Instructions: You were seen in the emergency department for knee pain and wound check. Your x- ray did not show any obvious fractures. We were able to clean the skin off your foot and there is some erythema so we prescribed doxycycline. Please have her follow up with the wound clinic if you're still concerned. If any studies were not completed at the time of discharge you will be called with the relevant results. Please follow up with your primary care doctor in next 2-3 days and return to emergency department for fevers, worsening redness to foot, pain, or concerning symptoms. It was a pleasure taking care of you today. - Billing Disposition and Condition Condition: STABLE Disposition: Home - Attestation Statements Document Initiated by Riddhi: Yes Documenting Scribe: Thi Marquez Provider For Whom Riddhi is Documenting (Include Credential): Parisa Barlow MD Scribe Attestation: IThi, scribed for Parisa Barlow MD on 06/13/19 at 1859. Scribe Documentation Reviewed: Yes Provider Attestation: The documentation as recorded by the hTi chauhan accurately reflects the service I personally performed and the decisions made by me, Parisa Barlow MD Status of Scribe Document: Viewed
[2019-06-13] MEDS ORDERED: DOXYcycline CAP(*) 100 MG PO ONE (18:56)
[2019-06-13] MEDS ORDERED: oxyCODONE/Acetamin 5/325 MG* TAB PO ONE (20:29)
[2019-06-13 21:09] VITALS: BP 0/0
== END 2019-06-13 19:30 | disposition home or self-care (01) ==
LOC: ED 16:57
DX: M25.562 Pain in left knee (principal); L03.115 Cellulitis of right lower limb; Z86.14 Personal history of Methicillin resistant Staphylococcus aureus infection; M19.071 Primary osteoarthritis, right ankle and foot; M17.12 Unilateral primary osteoarthritis, left knee; I45.10 Unspecified right bundle-branch block; E11.9 Type 2 diabetes mellitus without complications; I10 Essential (primary) hypertension; Z86.718 Personal history of other venous thrombosis and embolism; Z79.01 Long term (current) use of anticoagulants; I73.9 Peripheral vascular disease, unspecified; Z88.5 Allergy status to narcotic agent; Z87.891 Personal history of nicotine dependence
CPT/HCPCS: 93005; 99283; A9270-GY